=== PATIENT | female | born 1940 | race Caucasian/White ===

== ENCOUNTER → 2023-08-09 14:53 | Outpatient (REF) | payer OTHER, SELFPAY | LOC: RCS 14:53 | PROVIDERS: ATTENDING PHYSICIAN Family Medicine | DX: R06.02 Shortness of breath (principal) | CPT/HCPCS: 93306 ==

== ENCOUNTER 2024-03-29 22:48 | Inpatient (IN) | payer OTHER, SELFPAY ==
[2024-03-29] VITALS (7 sets, daily range): BP systolic 117–188; BP diastolic 52–84; BMI 29.3
[2024-03-29 17:54] LABS: Glucose - Point of Care 402 mg/dl (70-99)
[2024-03-29 18:30] LABS: Hematocrit 45.9 % (37.0-47.0); Hemoglobin 15.1 g/dL (12.0-16.0); Mean Corp Hgb Conc. 32.9 g/dL (33.0-37.0); Mean Corpuscular Hgb 29.3 pg (27.0-31.0); Mean Platelet Volume 10.8 fL (7.4-10.4); Platelet Count 238 10^3/uL (130-400); Red Blood Cell Count 5.16 10^6/uL (4.20-5.40); White Blood Cell Count 8.7 10^3/uL (4.8-10.8)
[2024-03-29 18:55] LABS: ALT (SGPT) 22 U/L (0-35); AST (SGOT) 29 U/L (14-36); Albumin 4.8 g/dl (3.5-5.0); Alkaline Phosphatase 73 U/L (38-126); Blood Urea Nitrogen 22 mg/dl (7-17); Calcium 9.7 mg/dl (8.4-10.2); Carbon Dioxide 27 mmol/L (22-30); Chloride 98 mmol/L (98-107); Estimated Creatinine Clearance 54 ml/min; Glucose 380 mg/dl (70-99); Potassium 4.7 mmol/L (3.5-5.1); Sodium 137 mmol/L (135-145); Total Bilirubin 0.7 mg/dl (0.2-1.3); Total Protein 7.7 g/dl (6.3-8.2); eGFR > 60.00
--- NOTE | 2024-03-29 19:00 | ED.GENMED ---
History of Present Illness
General
Chief Complaint: Dizziness
Source: patient
Exam Limitations: none
Time Seen by Provider: 03/29/24 18:36
History of Present Illness
History of Present Illness:
83-year-old female with history of hypertension, [id number] diabetes and hyperlipidemia presents with the onset of double vision out of the right eye starting around 1030. There were some unsteadiness when she walked as well. She notes
now the double vision has turned into a slightly of a blurry vision. She denies a headache. She states her vision out of her left eye is normal. It is her right eye that is affected. She is having trouble getting good reading of her blood sugar
at home as it was reading high. She denies any unilateral numbness or weakness. No chest pain or shortness of breath. No other complaints
Phy Exam
Physical Exam
Physical Exam:
General: Well-appearing female no acute respiratory distress
HEENT: Normocephalic atraumatic
Heart: Regular rate and rhythm no murmurs
Lungs: Clear no wheeze
Neurologic exam: Alert and oriented no facial asymmetry. Finger-nose [id number] intact no aphasia or dysarthria. When testing extraocular motions, the patient is unable to turn her right eye inward to the left. She is able to raise her eye
bilaterally. Her visual damian are intact.
Extremities: No cyanosis or edema
Skin: Warm no rash
Course
Orders/Labs/Results
Orders:
Orders
03/29/24 18:14
CMP [Comprehensive Metabolic Panel] Urgent
Complete Blood Count/No Diff Urgent
03/29/24 18:51
CT Head W/o Iv Contrast Urgent
Comment:
Reason For Exam: blurry vision
03/29/24 19:09
0.9% Sodium Chloride 1000 ml [Nss] 1,000 ml IV BOLUS
03/29/24 20:04
CT Head & Neck Angio W/wo IV Urgent
Reason For Exam: blurry vision
Abnormal Lab Results
03/29/24 03/29/24 03/29/24
17:53 18:14 21:25
MCHC 32.9 L g/dL
(33.0-37.0)
MPV 10.8 H fL
(7.4-10.4)
BUN 22 H mg/dl
(7-17)
Glucose 380 H mg/dl
(70-99)
POC Glucose 402 H mg/dl 273 H mg/dl
(70-99) (70-99)
03/29/24 18:14
03/29/24 18:14
Vital Signs
Initial and Last Documented VS:
Initial Vital Signs
Temp Pulse Resp BP Pulse Ox
97.6 F 77 18 179/84 97
03/29/24 17:52 03/29/24 17:52 03/29/24 17:52 03/29/24 17:52 03/29/24 17:52
Last Documented Vital Signs
Temp Pulse Resp BP Pulse Ox
97.6 F 60 12 157/64 96
03/29/24 17:52 03/29/24 20:30 03/29/24 20:30 03/29/24 20:00 03/29/24 19:45
MDM/Problems Addressed
Differential Diagnosis Includes:
Patient with dizziness and double vision. History of diabetes hypertension hyperlipidemia. No unilateral deficit of the arms or legs noted on exam however the patient does have difficulty turning her right eye towards the left hand direction.
Question possible cranial nerve palsy. She is hyperglycemic here at the level of 400. CT of the head pending.
*Critical Care Note
Total Time (30-74mins, 75-104mins- exclusive of procedures): Not Applicable
Update Note
Update Note:
CT head shows no acute finding. Discussed findings with neurology who recommended CTA of head and neck this was performed which showed no acute finding as well but neurology is recommending admitting to hospital for further workup and potential
further imaging with MRI. Differential could include CVA versus cranial nerve palsy. Fluids ordered for her hyperglycemia. Her scheduled dose of lisinopril.
ED Attending Note
-
Portions of this chart may have been created with voice recognition software.� Occasional wrong word or��sound alike� substitutions may have occurred due to the inherent limitations of voice recognition software.
Discharge Plan
Departure
Patient Disposition: Admit
Date of Disposition: 03/29/24
Time of Disposition: 21:39
Admit to: Telemetry
Presentation/result/management discussed w/ accepting MD/DO: Hospitalist
Discharge Problem:
Double vision
Referrals:
Karla Pringle MD [Family Provider] -
Interventions
Interventions:
*Risk Screen - Suicide Last Done: 03/29/24 18:18
*General Assessment Last Done: 03/29/24 18:18
*Neglect/Abuse Screening Last Done: 03/29/24 18:18
ED- Fall Risk Assessment Last Done: 03/29/24 18:23
*ED COVID-19 Vaccine History Last Done: 03/29/24 18:18
ED- Neurological Assessment Last Done: 03/29/24 18:19
ED- Cardiac Assessment Last Done: 03/29/24 18:23
Discharge Date and Time
Print Language: MAORI
[2024-03-29] MEDS: NSS 1000 IV (19:40)
[2024-03-29 21:28] LABS: Glucose - Point of Care 273 mg/dl (70-99)
--- NOTE | 2024-03-29 21:39 | HPS.HSE ---
Addendum entered and electronically signed by Yohan Vela DO 03/29/24 23:23:
Patient seen and examined independently. Agree with findings and plan as set forth by WINSOME Baca.
Patient is an 83y F with PMH significant for hypertension, DM-II and PVD who presents to ED complaining of double vision. Patient denies any blurry vision in either eye. She states that her symptoms started thi AM around 10:30. She has felt
dizzy / unsteady. She denies any falls. No numbness or tingling. No headache. No prior history of similar symptoms. Patient notes that seh was seen by Ophtho about 2 months ago and had a normal exam at that time.
Ass:
Double Vision
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
Benign Hypertension
DM-II
PVD
Plan:
Admit for further evaluation and treatment.
Neurology evaluation
MRI in AM.
Monitor for any new / worsening symptoms or neurologic changes.
Eye patch to R eye.
Continue usual home medications.
Original Note:
Family Physician
-
Family Physician: Karla Pringle
Chief Complaint
-
dizziness/double vision
History of Present Illness
Patient is a 83-year-old female with past medical history significant for hypertension, hyperlipidemia, type 2 diabetes mellitus and peripheral vacular disease who presented to [facility] for evaluation of acute onset double vision from right eye
associated with dizziness at approximately 1030 this morning. She notes she had unsteadiness on feet when walking and needed to utilize wall for balance. Patient states that she continues with intermittent double vision in right eye and vision
overall in right eye is blurry. Patient denies any fever, chills, cough, SOB, chest pain, nausea, vomiting, constipation, diarrhea or urinary symptoms. She noted recent stress of loosing a cat of 18 years and her passed a year ago.
Medical History
Past Medical History
Past Medical History: Reports Other
Additional Past Medical History:
hypertension
hyperlipidemia
type 2 diabetes mellitus
peripheral vacular disease
Hx endometrial cancer with hysterectomy
Past Surgical History: Reports Other
Additional Past Surgical History:
Hysterectomy (late )
Partial parathyroidectomy
ANDRAE/BSO
Social History
Tobacco: Non-smoker
Alcohol: None
Drug: None
Personal:
Living: Alone
Employment: Retired
Family History
Family History: Not pertinent
Allergies / Home Medications
Allergies reflects when Allergies were last updated in [facility].
Home Medications with original date entered in [employer]
Allergy/Medication List:
Allergies
Allergy/AdvReac Type Severity Reaction Status Date / Time
No Known Allergies Allergy Verified 03/29/24 18:17
Home Medications
lisinopril 2.5 mg tablet 2.5 mg PO DAILY 03/29/24
semaglutide 0.25 mg or 0.5 mg (2 mg/3 mL) subcutaneous pen injector (Ozempic) 0.25 mg SC WEEKLY 03/29/24
Review of Systems
-
History Source: Patient
Constitutional: Reports No Symptoms
EENT: Reports No Symptoms
Respiratory: Reports No Symptoms
Cardiac: Reports No Symptoms
Abdomen/GI: Reports No Symptoms
: Reports No Symptoms
Musculoskeletal: Reports No Symptoms
Skin: Reports No Symptoms
Neurological: Reports Dizzy and Other (right eye with blurry and double vision)
Endocrine: Reports No Symptoms
Hematologic/Lymphatic: Reports No Symptoms
Psych: Reports No Symptoms
Physical Exam
Vital Signs
Vital Signs
Temp Pulse Resp BP Pulse Ox
97.6 F 60 12 157/64 96
03/29/24 17:52 03/29/24 20:30 03/29/24 20:30 03/29/24 20:00 03/29/24 19:45
Physical Exam
General: Well Developed, Well Nourished, No Apparent Distress, Comfortable and Conversant
HEENT: NormoCephalic, Moist mucous membranes, Atraumatic, [place] Conjunctivae, Nose Appears Normal and Ears Appear Normal
Respiratory: Clear and Non Labored Respirations; No Wheezes, Rales, Rhonchi or Crackles
Cardiac: S1/S2 and Regular Rhythm; No Murmur, Rub or Gallop
Breast: Deferred by me
GI: Soft, Non Tender, Non Distended and Normal Bowel Sounds; No Organomegaly
Rectal: Deferred by Provider
Genito-urinary: Deferred by me
Musculoskeletal: No Clubbing, No Cyanosis and No Edema
Skin: Warm and IV/Catheter Site; No Rash
Neuro: Awake, Alert, AO x 3 and Nonfocal/grossly intact; No Cranial Nerves Intact (right eye does not track inward to left when testing extraocular movement, all visual damian and movement intact)
Hematologic/Lymphatic: No Lymphadenopathy
Psych: Calm and Intact Judgment/Insight
Laboratory Results
-
03/29/24 18:14
03/29/24 18:14
Laboratory Results
Total Bilirubin 0.7 mg/dl (0.2-1.3) 03/29/24 18:14
AST 29 U/L (14-36) 03/29/24 18:14
ALT 22 U/L (0-35) 03/29/24 18:14
Alkaline Phosphatase 73 U/L (38-126) 03/29/24 18:14
Data Reviewed
-
CT Scan: Report Reviewed by me (Head CT: No acute intracranial abnormalities. Findings compatible with diffuse cortical atrophy with nonspecific white matter changes as described above. Head CTA: No M1 nor M2 occlusion. No significant acute
findings.)
Lab Data: Labs Reviewed by me
Impression/Plan
-
IMPRESSION/PLAN:
#CVA/TIA vs. cranial nerve palsy
Acute onset right eye double vision, changing to blurry vision
Head CT: No acute intracranial abnormalities.
Findings compatible with diffuse cortical atrophy with nonspecific white matter changes as described above.
Head CTA: No M1 nor M2 occlusion. No significant acute findings.
- Admit to telemetry
- Consult Neurology
- Neurochecks
- NIH
- MRI
- daily Aspirin 81mg
#benign hypertension
- continue Lisinopril
- monitor VS
#type 2 diabetes mellitus
- continue semaglutide on Mondays
- Accuchecks AC & HS
- SSI
#hyperlipidemia
#peripheral vacular disease
#Hx endometrial cancer with hysterectomy in late 1980s
Code Status: Full code
DVT Prophylaxis: SCDs
[2024-03-30] VITALS (10 sets, daily range): BP systolic 153–194; BP diastolic 57–131; PULSE 66–67; O2SAT 98; BMI 28.5
--- NOTE | 2024-03-30 00:30 | PTCARENOTE ---
Upon admission to floor, pt able to ambulate w/assist of 1 from hallway to bed. Slightly unsteady on feet. Denies any dizziness. No longer w/double vision of Rt eye; Rt eye vision now blurry. Pt instructed on importance of not getting OOB w/o
assistance of staff; pt confirms understanding of same.
--- NOTE | 2024-03-30 08:39 | CON.NEURO4 ---
Addendum entered and electronically signed by Juan C Wright MD 03/30/24 15:06:
Studies reviewed.
I have personally examined the patient. I reviewed and agree with the PERFORMANCE ANALYST's Note.
My addenda:
Awake, alert, interactive. No acute distress.
Speech intact.
Follows 2-step requests w/o difficulty. No tremor.
Extra-ocular movements grossly intact.
Facial movements full and symmetric. Hearing intact to normal conversational volume.
Normal UE movements bilaterally.
Neck: full ROM.
Chest: no dyspnea
Heart: no JVD
Ext: (-) Clubbing, (-) Cyanosis, (-) Edema
IMPRESSIONS/RECOMMENDATIONS:
Abrupt onset of gait dysfunction and diplopia
Due to acute right pontine ischemic stroke as seen by MRI of brain; CTA head and neck was unrevealing
Patient was not a candidate for either tenecteplase or intra-arterial thrombectomy due to NIH stroke scale less than 6
Provide medical educational materials
Provide combination of aspirin and clopidogrel with permanent use of aspirin alone after 21 days
Add rosuvastatin 40 mg daily due to significantly elevated LDL
Rehabilitation evaluations
Goal of normoglycemia
Goal of normal blood pressure
D/W patient / family
All questions answered.
Will continue to follow as needed.
Original Note:
Consultation - Neurology 4
-
CONSULTING PHYSICIAN: Dr. Juan C Wright
REFERRING PHYSICIAN: WINSOME Baca
DICTATED BY: WINSOME Wilkes
DATE/TIME OF REQUEST: 03/29/2024
DATE/TIME OF CONSULTATION: 03/30/2024
Reason for Consultation: diplopia/trouble with gait
History of Present Illness:
This is a 83 year old female patient who has presented to the hospital with acute onset of diplopia and gait dysfunction starting after 1030 yesterday morning (03/29/2024). She noted trouble with gait and vision when she was walking to the the BR.
She reported diplopia was only noted in her right eye, not both. Diplopia has improved and is now intermittent. She did note diplopia again of just the right eye when watching TV this am. Otherwise is now just blurry. No visual issues with the
left eye. She did ambulate to the BR and gait is still a bit unsteady. She denies any upper extremity weakness. She does note mild right leg weakness. She also states that yesterday she had numbness of lips and part of her tongue. She has no
history of stroke. She does not take any antiplatelet. She denies any similar episodes in the past. She does live alone.
Past Medical History: DM, osteoporosis, PVD, HLD, HTN, Endometrial cancer
Surgical History: Hysterectomy
Family History: mother 'small strokes'
Social History: Patient lives alone. She does not smoke of drink ETOH.
Allergies: NKDA
Home Medications: See below
Review of Symptoms:
Patient denies any fever, headache, chest pain, shortness of breath, GI or symptoms.
Vital Signs:
see below
Physical Exam:
The patient is afebrile, heart sounds S1 and S2 are regular and chest is clear to auscultation bilaterally.
Neurologic Examination:
The patient is awake, alert and oriented x 3. She is able to follow commands and answer questions appropriately. There is no aphasia or dysarthria. On cranial nerve assessment, pupils are 3 mm bilateral, round and reactive to light and
accommodation. Visual damian are full. Extraocular eye movement of right eye with cranial nerve III palsy, otherwise intact. Facial sensations are intact and bilaterally symmetrical, there is no facial asymmetry. Hearing is intact bilaterally to
normal conversation volume. Tongue palate and uvula are midline. Sternocleidomastoid strengths are full bilaterally. Motor strengths are 5/5 bilateral upper and lower extremities on medical research [place] scale. There is no drift or involuntary
movement noted. Deep tendon reflexes are trace bilateral upper and lower extremities and Babinski is absent bilaterally. Sensations of light touch and temperature are intact and bilaterally symmetrical. There was no extinction noted on double
simultaneous stimulation. Coordination is intact by finger to nose bilaterally.
Lab Results:see below
Neuro Imaging:
CT head-No acute intracranial abnormalities.
Findings compatible with diffuse cortical atrophy with nonspecific white matter changes
CTA head/neck-No M1 nor M2 occlusion. No significant acute findings.
Impression:
PRESLEY RITTER is a 83 year old F who has presented to the hospital with diplopia of right eye as well as gait changes.
Differentials for the patient's presentation include CN III palsy caused uncontrolled DM vs acute stroke
Patient has the following risk factors for their symptoms: DM, age, HTN
IV Tenecteplase/IAT candidacy:non debilitating deficit
Recommendations:
-reviewed CT head and C TA head and neck with no acute cause
-obtain MRI brain-pending report
-continue ASA 81 mg will ad Plavix 75 mg daily for 21 days; then should continue ASA 81 mg indefinitely
-goal normoglycemia-outpatient HgbA1c 12.9 (Feb 2024) HgbA1c pending
-goal normotension
-LDL 199, gaol less than 70-per last PCP record was taking Rosuvastatin 20 mg, will order
-PT/OT and speech evaluations
-Neurochecks and NIHSS per unit guidelines
-DVT prophylaxis
-She does follow with Dr. Wilks as an outpatient and should continue to follow up with him
-provide stroke education
Discussed patient care with patient and neurologist, Dr. Wright.
Medication and Allergies
Home Medications
Home Medications
�Medication �Instructions �Recorded
lisinopril 2.5 mg tablet 2.5 mg PO DAILY 03/29/24
semaglutide 0.25 mg or 0.5 mg (2 0.25 mg SC WEEKLY 03/29/24
mg/3 mL) subcutaneous pen injector
(Ozempic)
Allergies
Allergies
Allergy/AdvReac Type Severity Reaction Status Date / Time
No Known Allergies Allergy Verified 03/29/24 18:17
Vital Signs / Labs
-
Vital Signs and Labs:
Temp Pulse Resp BP Pulse Ox
97.7 F 68 18 178/68 97
03/30/24 08:07 03/30/24 09:10 03/30/24 08:07 03/30/24 09:10 03/30/24 08:07
03/29/24 18:14
03/29/24 18:14
03/29/24 03/29/24 03/29/24
17:53 18:14 21:25
MCHC 32.9 L
MPV 10.8 H
BUN 22 H
Glucose 380 H
POC Glucose 402 H 273 H
03/30/24
08:48
MCHC
MPV
BUN
Glucose
POC Glucose 174 H
[2024-03-30 08:50] LABS: Glucose - Point of Care 174 mg/dl (70-99)
[2024-03-30] MEDS: ZESTRIL 2.5 MG PO (09:10)
[2024-03-30] MEDS: VITAMIN B1 100 MG PO (09:11)
[2024-03-30] MEDS: LOW STRENGTH ASPIRIN 81 MG PO (09:11)
[2024-03-30 09:40] LABS: HDL Cholesterol 50 mg/dl; LDL Cholesterol, Calculated 199 mg/dl; Total Cholesterol 284 mg/dl (50-199); Triglyceride 179 mg/dl (10-149); Very Low Density Lipoprotein 35 mg/dl (0-30)
--- NOTE | 2024-03-30 10:05 | PTOTSP ---
Speech Therapy Evaluation:
Pt seen for bedside swallow evaluation. Oropharyngeal swallow appears grossly WFL with no overt s/sx of aspiration throughout breakfast. Pt appears to be at a low risk of aspiration and related complications given CNE that was within functional
limits and PMH with no significant risk factors, however will follow pending results of MRI.
Recommend:
1. Continue IDDSI Level 7 (regular) solids and thin liquids
2. Medications as tolerated
3. Partial assistance with tray setup given double vision
4. General aspiration precautions
5. FINAL APPLICATION REVIEWER to follow - likely brief
[2024-03-30 11:58] LABS: Glucose - Point of Care 197 mg/dl (70-99)
[2024-03-30] MEDS: PLAVIX 75 MG PO (12:22)
--- NOTE | 2024-03-30 13:19 | W.PN.HOSP.TC ---
Today's Communication/Plan
-
check ECHO
cont asa/plavix/statin
Assessment / Plan
Assessment / Plan
pt is an 83 year old female
acute stroke--presenting likely as double vision--MRI positive for Nonhemorrhagic acute/subacute right pontine infarct--head CT and head/neck CTA without significant findings--cont asa/plavix x 21 days--PT/OT--check ECHO--tchol 284, trug 179, LDL
199, HDL 50--need better control--start statin
essential HTN--cont lisinopril
type 2 DM--on ozempic only--BS high--consult community health educator--add SSI
PVD--noted
DVT proph
code status -- full code
Anticipated Discharge: 24 - 48 hours
Subjective/Interval History
-
Date of Service: March 30, 2024
pt still with blurry vision and double vision in right eye
Objective Data
-
Vital Signs:
max temp for 24 hours
03/30/24
11:51
Temp 98 F
Vital Signs
Temp Pulse Resp BP Pulse Ox
98 F 62 18 164/62 98
03/30/24 11:51 03/30/24 11:51 03/30/24 11:51 03/30/24 11:51 03/30/24 11:51
I&O
03/29/24 03/30/24 03/31/24
06:59 06:59 06:59
Intake Total 240 / 240
Balance 240 / 240
Review of Systems
-
All other systems: Reviewed and negative
EENT: Reports Decreased Vision (right eye)
Physical Exam
-
General: Well Developed, Well Nourished and No Apparent Distress
HEENT: Normocephalic and Atraumatic
Respiratory: Clear to Auscultation; Negative Wheezes or Rhonchi
Cardiac: Regular Rhythm and S1/S2; Negative Murmur
GI: Soft, Nontender, Nondistended and Normal Bowel Sounds
Musculoskeletal: No Clubbing, No Cyanosis and No Edema
Neuro: Awake and Alert
Psych: Calm
--- NOTE | 2024-03-30 13:35 | CM ---
Patient seen at bedside with physician. Patient states she lives alone since of her in the last year. Patient sister present at bedside. Patient PCP is Dr. Tran and she uses the [facility] in [place]. Patient stated that she has been
independent of ADL's and IADL's. Patient was driving prior to admission. Patient pending therapy assessment. CM will continue to follow for discharge planning needs.
Plan; home with [facility] vs SNF
[2024-03-30] MEDS: CRESTOR 20 MG PO (17:43)
[2024-03-30 17:46] LABS: Glucose - Point of Care 205 mg/dl (70-99)
[2024-03-30] MEDS: NOVOLOG FLEXPEN-LOW RESISTANCE 2 UNITS SC (17:50)
[2024-03-30 18:09] LABS: Ferritin 41.8 ng/ml (11.1-264.0)
--- NOTE | 2024-03-30 18:11 | PTCARENOTE ---
Received patient this a AAOx3. Pt NIH-2. Pt OOB to chair an tolerated well. Tolerated diet well. Py off unit for MRI and Echo today. Offered no complaints. Made patient comfortable. Cont to assess patient status.
[2024-03-30 18:24] LABS: Vitamin B12 573 pg/ml (239-931)
[2024-03-30 21:29] LABS: Glucose - Point of Care 226 mg/dl (70-99)
[2024-03-31] VITALS (8 sets, daily range): BP systolic 115–194; BP diastolic 47–78; PULSE 65; O2SAT 98
[2024-03-31 07:58] LABS: Hematocrit 39.5 % (37.0-47.0); Hemoglobin 13.3 g/dL (12.0-16.0); Mean Corp Hgb Conc. 33.7 g/dL (33.0-37.0); Mean Corpuscular Hgb 29.6 pg (27.0-31.0); Mean Corpuscular Volume 87.8 fL (81.0-99.0); Mean Platelet Volume 10.9 fL (7.4-10.4); Platelet Count 189 10^3/uL (130-400); Red Cell Dist. Width 12.3 % (11.5-14.5); White Blood Cell Count 5.1 10^3/uL (4.8-10.8)
[2024-03-31 08:15] LABS: Glucose - Point of Care 222 mg/dl (70-99)
[2024-03-31 08:21] LABS: ALT (SGPT) 16 U/L (0-35); AST (SGOT) 16 U/L (14-36); Albumin 3.4 g/dl (3.5-5.0); Alkaline Phosphatase 59 U/L (38-126); Blood Urea Nitrogen 19 mg/dl (7-17); Calcium 8.9 mg/dl (8.4-10.2); Carbon Dioxide 27 mmol/L (22-30); Chloride 105 mmol/L (98-107); Estimated Creatinine Clearance 62 ml/min; Glucose 183 mg/dl (70-99); Magnesium 1.8 mg/dl (1.6-2.3); Potassium 4.2 mmol/L (3.5-5.1); Sodium 138 mmol/L (135-145); Total Bilirubin 0.5 mg/dl (0.2-1.3); Total Protein 5.8 g/dl (6.3-8.2); eGFR > 60.00
[2024-03-31] MEDS: VITAMIN B1 100 MG PO (08:24)
[2024-03-31] MEDS: ZESTRIL 2.5 MG PO (08:24)
[2024-03-31] MEDS: PLAVIX 75 MG PO (08:25)
[2024-03-31] MEDS: LOW STRENGTH ASPIRIN 81 MG PO (08:25)
[2024-03-31] MEDS: NOVOLOG FLEXPEN-LOW RESISTANCE 2 UNITS SC ×2 (08:26→17:03)
[2024-03-31 08:58] LABS: Glycohemoglobin (HgbA1c) 12.4 % (4.0-5.6)
--- NOTE | 2024-03-31 09:20 | CM ---
Addendum entered by Marilia Woo 03/31/24 09:29:
Per physician patient for DM educator visit. CM will continue to follow for discharge planning needs, awaiting response from [facility] to confirm.
Original Note:
Patient seen at bedside with physician. Patient for discharge home today with referral requested to [facility]. CM will update the liaison and IMM completed. CM will continue to follow for discharge planning needs.
--- NOTE | 2024-03-31 09:49 | W.PN.HOSP.TC ---
Today's Communication/Plan
-
await extension educator
likely d/c today
Assessment / Plan
Assessment / Plan
pt is an 83 year old female
acute stroke--presenting likely as double vision--MRI positive for Nonhemorrhagic acute/subacute right pontine infarct--head CT and head/neck CTA without significant findings--cont asa/plavix x 21 days, followed by asa alone--PT/OT-- ECHO without
much change--tchol 284, trug 179, LDL 199, HDL 50--need better control--started statin
essential HTN--cont lisinopril
type 2 DM--on ozempic only--BS high--await extension educator--add SSI--may need to add oral med--HGB A1C 12.4
PVD--noted
DVT proph
code status -- full code
Anticipated Discharge: Today
Subjective/Interval History
-
Date of Service: March 31, 2024
pt now has eye patch
Objective Data
-
Labs:
Laboratory Results
03/31/24
06:43
WBC 5.1
Hgb 13.3
Hct 39.5
Plt Count 189 D
Sodium 138
Potassium 4.2
Chloride 105
Carbon Dioxide 27
BUN 19 H
Creatinine 0.6
Glucose 183 H
Calcium 8.9
Total Bilirubin 0.5
AST 16
ALT 16
Alkaline Phosphatase 59
Vital Signs:
max temp for 24 hours
03/30/24
16:03
Temp 98.7 F
Vital Signs
Temp Pulse Resp BP Pulse Ox
97.7 F 62 20 165/74 97
03/31/24 06:53 03/31/24 08:24 03/31/24 06:53 03/31/24 08:24 03/31/24 08:31
I&O
03/30/24 03/31/24 04/01/24
06:59 06:59 06:59
Intake Total 240 / 240 240 / 240
Balance 240 / 240 240 / 240
Review of Systems
-
All other systems: Reviewed and negative
Physical Exam
-
General: Well Developed, Well Nourished and No Apparent Distress
HEENT: Normocephalic, Atraumatic and Other (eye patch over right eye)
Respiratory: Clear to Auscultation; Negative Wheezes or Rhonchi
Cardiac: Regular Rhythm and S1/S2; Negative Murmur
GI: Soft, Nontender, Nondistended and Normal Bowel Sounds
Musculoskeletal: No Clubbing, No Cyanosis and No Edema
Neuro: Awake and Alert
Psych: Calm
--- NOTE | 2024-03-31 10:07 | VNURNOTE ---
Home Health Liaison met with patient at bedside to discuss [facility] nurse/therapy, visits, schedule and homebound status. Patient is agreeable and understands that visits at home will be 2-3 x per week to assess and teach medical management. [facility]
brochure provided with contact information. Patient is aware that [facility] will contact them for start of care in 1-2 days after discharge from .
[facility] referral completed in [facility].
[2024-03-31 11:59] LABS: Glucose - Point of Care 319 mg/dl (70-99)
[2024-03-31] MEDS: NOVOLOG FLEXPEN-LOW RESISTANCE 4 UNITS SC (12:08)
[2024-03-31] MEDS: LANTUS 0.15 UNITS SC (14:48)
--- NOTE | 2024-03-31 15:06 | PN.DE.MGMTRT ---
Insulin Management
- -
03/31/2024: Diabetes Management Consult
83 year old female admitted with Right eye vision changes MRI positive for Nonhemorrhagic acute/subacute right pontine infarct.
PMH: HTN, HLD, PVD and T2DM. Glucose on admission was 407, A1C 12.4% Cr 0.6, eGFR >60. Was taking Ozempic Q Mondays and Metformin 1000mg BID but according to her sisters at bedside, pt was confusing her medication and not taking them consistently.
She once had a glucose monitor but they don't know where it is and she dose not monitor her blood sugars.
Her glucose has been elevated since admission. FBG 183 (V), 222 POC this AM, pre-lunch 319
Discussed plan of management at length with pt and her sisters at bedside. One sister states that will not take insulin and i should not bither ordeing it.
in further discussion, the older sister stated that she will be able to go to pt's house once a day administer 1 shot a day at noon.
Will start Lantus 15 units now and daily at noon. Start Glipizide 2.5mg BID and resume metformin 1000 mg BID.
Provided monitor and insulin instructions to both pt and her 2 sisters at bedside.
Encouraged the older sister to record the education session for reference when they get home.
Pt had difficulties following step by step instructions on monitor use and insulin pen use.
Pt required a lot of verbal cues. The instructions were provided twice and pt struggled both times wit poor return demonstration. Her blood sugar was 200 prior to lunch on the take home meter. Pt and family asking about script for CGM, they were
encouraged to contact pt's PCP for script and to call office to assist with insertion when they pick it up from the pharmacy.
She will require followup tomorrow to reinforce the education and instructions.
Reviewed all instructions and medications with pt's sisters and marked all necessary information in the diabetes take home booklet.
Will follow up tomorrow. Updates given to Dr. Hermosillo and pt's Nurse
Diabetes History
- -
Type of Diabetes: 2 requiring insulin
Pre-Admission Diabetes Regimen
03/31/24
06:43
Creatinine 0.6
Lab Results
Hemoglobin A1c Cancelled 03/30/24 08:54
Insulin Pump Settings
IP Diabetes Regimen
03/30/24 03/30/24 03/31/24
17:45 21:27 06:43
Glucose 183 H
POC Glucose 205 H 226 H
03/31/24 03/31/24
08:14 11:58
Glucose
POC Glucose 222 H 319 H
Meal type: Breakfast
Amount consumed: 100%
Patient Education
[2024-03-31 16:55] LABS: Glucose - Point of Care 213 mg/dl (70-99)
[2024-03-31] MEDS: CRESTOR 20 MG PO (17:02)
[2024-03-31] MEDS: GLUCOTROL 2.5 MG PO (17:02)
[2024-03-31] MEDS: GLUCOPHAGE 1000 MG PO (17:03)
[2024-03-31 21:15] LABS: Glucose - Point of Care 134 mg/dl (70-99)
[2024-04-01 03:43] VITALS: BP 153/59
[2024-04-01 07:34] LABS: Glucose - Point of Care 111 mg/dl (70-99)
[2024-04-01 07:46] VITALS: BP 150/62
--- NOTE | 2024-04-01 07:55 | PN.DE.MGMTRT ---
Insulin Management
- -
04/01/2024: Diabetes Management F/U:
83 year old female admitted with Right eye vision changes MRI positive for Nonhemorrhagic acute/subacute right pontine infarct.
PMH: HTN, HLD, PVD and T2DM. Glucose on admission was 407, A1C 12.4% Cr 0.6, eGFR >60. Was taking Ozempic Q Mondays and Metformin 1000mg BID but according to her sisters at bedside, pt was confusing her medication and not taking them consistently.
She once had a glucose monitor but they don't know where it is and she dose not monitor her blood sugars. Her glucose has been elevated since admission. FBG 183 (V), 222 POC this AM, pre-lunch 319
03/31 started Lantus 15 units daily at noon, Glipizide 2.5mg BID and resumed metformin 1000 mg BID.
Pt awake, alert, sitting up in chair, offers no complaints, able to discuss diabetes mgt. Both sisters- Terri High and Lissa at bedside.
Glucose has dramatically improved with initiation of basal insulin and glipizide and resuming Metformin.
HS glucose was 134 and FBG 111 POC this AM.
Will make no changes to current regimen: Lantus 15 units daily at noon, Glipizide 2.5mg BID and metformin 1000 mg BID.
Provided follow up monitor and insulin instructions to both pt and her 2 sisters at bedside.
Pt did much better today, was able to perform proper technique using the meter and insulin pen, with good return demonstration. Her glucose was 175 using her take home meter. Pt and sisters feel confident that they will be able tpo manage insulin
administration once a day and Glucose monitoring 2 times a day.
Reviewed all instructions and medications with pt's sisters and marked all necessary information in the diabetes take home booklet.
Encouraged pt and her sisters to contact pt's PCP to obtain script for CGM.
Updates given to Dr. Hermosillo and pt's Nurse. Will add Rx to ambulatory orders.
Diabetes History
- -
Type of Diabetes: 2 requiring insulin
Pre-Admission Diabetes Regimen
03/31/24
06:43
Creatinine 0.6
Lab Results
Hemoglobin A1c Cancelled 03/30/24 08:54
Insulin Pump Settings
IP Diabetes Regimen
03/31/24 03/31/24 03/31/24
06:43 08:14 11:58
Glucose 183 H
POC Glucose 222 H 319 H
03/31/24 03/31/24 04/01/24
16:54 21:13 07:33
Glucose
POC Glucose 213 H 134 H 111 H
Meal type: Breakfast
Amount consumed: 100%
Patient Education
[2024-04-01] MEDS: GLUCOTROL 2.5 MG PO ×2 (08:45→17:34)
[2024-04-01] MEDS: GLUCOPHAGE 1000 MG PO ×2 (08:45→17:35)
[2024-04-01] MEDS: ZESTRIL 2.5 MG PO (08:45)
[2024-04-01] MEDS: NOVOLOG FLEXPEN-LOW RESISTANCE SC ×3 (08:45→18:01)
[2024-04-01] MEDS: LOW STRENGTH ASPIRIN 81 MG PO (08:45)
[2024-04-01] MEDS: VITAMIN B1 100 MG PO (08:46)
[2024-04-01] MEDS: PLAVIX 75 MG PO (08:46)
[2024-04-01 11:16] VITALS: BP 158/69
[2024-04-01] MEDS: LANTUS 0.15 UNITS SC (13:56)
[2024-04-01 14:01] LABS: Glucose - Point of Care 139 mg/dl (70-99)
--- NOTE | 2024-04-01 14:14 | CM ---
Patient spoke with physician and sisters as well as CM. Patient for discharge home with [facility] and patient family completed IMM form placed on chart. CM will continue to follow for discharge planning needs.
Plan; home with [facility] and DM educator supports.
[2024-04-01 15:08] VITALS: BP 154/74
--- NOTE | 2024-04-01 15:16 | W.PN.HOSP.TC ---
Today's Communication/Plan
-
d/c
Assessment / Plan
Assessment / Plan
pt is an 83 year old female
acute stroke--presenting likely as double vision--MRI positive for Nonhemorrhagic acute/subacute right pontine infarct--head CT and head/neck CTA without significant findings--cont asa/plavix x 21 days, followed by asa alone--PT/OT-- ECHO without
much change--tchol 284, trug 179, LDL 199, HDL 50--need better control--started statin
essential HTN--cont lisinopril
type 2 DM--on ozempic only--BS high--apprec coordinator of placement-- oral meds and lantus added--HGB A1C 12.4--family wants f/u with endocrine
PVD--noted
DVT proph
code status -- full code
Anticipated Discharge: Today
Subjective/Interval History
-
Date of Service: April 01, 2024
pt ready for d/c
Objective Data
-
Vital Signs:
max temp for 24 hours
03/31/24
15:54
Temp 98.2 F
Vital Signs
Temp Pulse Resp BP Pulse Ox
98.1 F 75 18 158/69 97
04/01/24 11:16 04/01/24 11:16 04/01/24 11:16 04/01/24 11:16 04/01/24 14:48
I&O
03/31/24 04/01/24 04/02/24
06:59 06:59 06:59
Intake Total 240 / 240 600 / 600
Balance 240 / 240 600 / 600
Review of Systems
-
All other systems: Reviewed and negative
Physical Exam
-
General: Well Developed, Well Nourished and No Apparent Distress
HEENT: Normocephalic and Atraumatic
Respiratory: Clear to Auscultation; Negative Wheezes or Rhonchi
Cardiac: Regular Rhythm and S1/S2; Negative Murmur
GI: Soft, Nontender, Nondistended and Normal Bowel Sounds
Musculoskeletal: No Clubbing, No Cyanosis and No Edema
Neuro: Awake and Alert
Psych: Calm
[2024-04-01] MEDS: CRESTOR 20 MG PO (17:34)
[2024-04-01 17:38] LABS: Glucose - Point of Care 194 mg/dl (70-99)
--- NOTE | 2024-04-01 18:05 | PTCARENOTE ---
Discharge instructions reviewed with patient and sister. Copies provided to both patient and sister. Answered all questions. IV and tele removed. Patient left via wheelchair with staff escort. Sister is at bedside to transport patient home.
--- NOTE | 2024-04-02 15:34 | W.DCSUMMARY ---
Discharge Summary
Discharge Data
Date of Admission: 03/29/24
Date of Discharge: 04/01/24
Total time spent discharging patient (in min): 32
-
Pending Results: No
Hospital Course
Primary care physician : Karla Pringle
Principal Discharge diagnosis : Acute stroke, uncontrolled type 2 diabetes mellitus
Chronic Discharge diagnosis : Essential hypertension, peripheral vascular disease
Hospital Course : Patient was an 83-year-old female with a history of essential hypertension, type 2 diabetes mellitus who presented with acute onset of double vision from the right eye. This was associated with dizziness and started at
approximately 10:30 on the morning of admission. She states she had unsteadiness with walking and needed to utilize the wall for balance. She continued to have intermittent double vision in the right eye and the overall vision in the right eye is
blurry. Patient was admitted.
Problem #1: Acute stroke. Patient was admitted and seen in consultation by neurology. CAT scan of the head and CTA of the head and neck all were negative. MRI of the brain however showed a nonhemorrhagic acute to subacute right pontine infarct.
Patient was placed on aspirin and Plavix which she should take for 21 days followed by aspirin alone. Echocardiogram was done which did not show much change from previous echocardiogram. Lipid panel was checked which showed a total cholesterol
284, triglycerides of 179, LDL of 199 and an HDL of 50. She was started on a high intensity statin medication at this time. Physical therapy and Occupational Therapy were consulted and the patient does not have any skilled needs from that
standpoint. Speech did see the patient and she was noted to have cognitive deficits scoring a 20 out of 30 on the cognitive exam. Eyepatch was given to the patient and she should follow-up with ophthalmology as an outpatient.
Problem #2: Uncontrolled type 2 diabetes mellitus. Patient was on Ozempic only and sister was asking about a continuous glucose monitor. Blood sugars were running high here and hemoglobin A1c was checked and was found to be 12. Diabetic nurse
practitioner was consulted for assistance and patient was taken off Ozempic. She was started on Lantus, glipizide, metformin. Sister was asking about follow-up with endocrine. Names were provided for the patient. Sister supposed to be coming
over daily to give the patient her Lantus. With her cognitive issues I believe this is the prudent thing to do.
Problem #3: All other medical issues. These include Essential hypertension, peripheral vascular disease. These medical issues were stable during her hospitalization. Medications were continued as able.
Patient is stable for discharge home at this time. If there are any questions regarding this dictation or her hospital stay, please not hesitate to call. Our office number is [phone].
Time for discharge 32 minutes.
Important imaging findings :
BRAIN MRI IMPRESSION:
Nonhemorrhagic acute/subacute right pontine infarct.
HEAD AND NECK CTA IMPRESSION: No M1 nor M2 occlusion. No significant acute findings.
HEAD CT IMPRESSION:
No acute intracranial abnormalities.
Findings compatible with diffuse cortical atrophy with nonspecific white matter changes as described above.
ECHO CONCLUSIONS:
Normal left ventricular size and systolic function. Mild concentric left
ventricular hypertrophy. No regional wall motion abnormalities are seen. LV
ejection fraction is 55% by visual assessment.
Aortic sclerosis without stenosis.
Mild to moderate mitral regurgitation.
The IVC is of normal size and demonstrates normal respiratory variation.
Interatrial septum is intact with no evidence of shunting by color flow
Doppler.
Compared to prior echocardiogram from August 09, 2023 LVEF is similar, degree of
mitral regurgitation is similar mild to moderate. Previously there was felt to
be mild aortic stenosis with mean gradient of 11 mmHg.
Discharge Plan
-
Patient Disposition: Home with Home Care
Discharge Diagnosis/Procedures: Acute stroke presenting as double vision, essential hypertension, type 2 diabetes mellitus, peripheral vascular disease
Condition: Good
Diet: Low Fat and Diabetic, Carb Controlled
Activity: As tolerated
Driving Restrictions: Not until seen by your Dr
Bathing Restrictions: None
Other Services: VN, PT, OT and ST
Referrals:
Desirae Henriquez MD [Consulting Staff] - As needed (or anyone in the group)
Santiago Wilks MD [Active] - in one week
Karla Pringle MD [Family Provider] - in less than 1 week
Additional Discharge Medication Instructions: take aspirin and clopidogrel both for 21 days then continue on aspirin alone
Prescriptions:
New
glipizide 5 mg Tablet
2.5 mg PO BID@0800,1700 Qty: 60 0RF
insulin glargine [Lantus Solostar U-100 Insulin] 100 unit/mL (3 mL) Insulin Pen
15 unit SC NOON Qty: 5 0RF
Rx Instructions:
TAKE 15 UNITS DAILY AT NOON
(DME) pen needle, diabetic [BD Ultra-Fine Sofya Pen Needle] 32 gauge x 5/32' Needle
Qty: 60 0RF
Rx Instructions:
As Directed
(DME) Contour Next Test Strips Strip
Qty: 60 0RF
Rx Instructions:
Pt Testing 2 times a day
(DME) lancets [Microlet Lancet] Misc
Qty: 60 0RF
Rx Instructions:
TEST BLOOD SUGAR TWICE A DAY
clopidogrel 75 mg Tablet
75 mg PO DAILY 21 Days Qty: 21 0RF
Rx Instructions:
then continue aspirin only
rosuvastatin 20 mg Tablet
20 mg PO QPM Qty: 30 0RF
metformin 1,000 mg Tablet
1,000 mg PO BID@0800,1700 Qty: 60 0RF
aspirin 81 mg Tablet,Chewable
81 mg PO DAILY Qty: 0 0RF
lisinopril 2.5 mg tablet
2.5 mg PO DAILY Qty: 30 0RF
Continued
lisinopril 2.5 mg Tablet
2.5 mg PO DAILY
Discontinued
Ozempic 0.25 mg or 0.5 mg (2 mg/3 mL) Pen Injector
0.25 mg SC WEEKLY
metformin 1,000 mg Tablet
1,000 mg PO BID
Discharge Orders:
Discharge Patient (As Directed); Ordered 04/01/24
Ordered By: Johana Hermosillo
Discharge Date and Time
Discharge Date/Time: 04/01/24 18:02
Print Language: [facility] [place]
== END 2024-04-01 18:02 | disposition home health service (06) | DRG 66 ==
LOC: 4 EAST ACU 22:48
PROVIDERS: Nurse Practitioner Family; ADMITTING PHYSICIAN Hospitalist; ATTENDING PHYSICIAN Internal Medicine; CONSULT PHYSICIAN Psychiatry & Neurology Neurology; EMERGENCY PHYSICIAN Student in an Organized Health Care Education/Training Program; FAMILY PHYSICIAN Family Medicine
DX: I63.29 Cerebral infarction due to unspecified occlusion or stenosis of other precerebral arteries (principal); H53.2 Diplopia; E11.51 Type 2 diabetes mellitus with diabetic peripheral angiopathy without gangrene; I10 Essential (primary) hypertension; E78.5 Hyperlipidemia, unspecified; R26.81 Unsteadiness on feet; Z90.710 Acquired absence of both cervix and uterus; Z85.42 Personal history of malignant neoplasm of other parts of uterus; M81.0 Age-related osteoporosis without current pathological fracture; Z79.85 Long-term (current) use of injectable non-insulin antidiabetic drugs
CPT/HCPCS: 70450; 70496; 70498; 70551; 80053; 80061; 82607; 82728; 82962; 83036; 83735; 85027; 92523; 92526; 92610; 93306; 96360; 97116; 97129; 97163; 97166; 97530; 99285; Q9967

== ENCOUNTER 2024-09-16 15:16 | Outpatient (RCR) | payer OTHER, SELFPAY | END 2024-09-16 23:59 | disposition home or self-care (01) | LOC: RST 15:16 | PROVIDERS: ATTENDING PHYSICIAN Psychiatry & Neurology Neurology; PRIMARYCARE PHYSICIAN Family Medicine | DX: I69.311 Memory deficit following cerebral infarction (principal); I69.318 Other symptoms and signs involving cognitive functions following cerebral infarction; I69.328 Other speech and language deficits following cerebral infarction; Z73.6 Limitation of activities due to disability | CPT/HCPCS: 96125; 97129; 97130 ==

== ENCOUNTER → 2025-03-05 09:07 | Outpatient (REF) | payer OTHER, SELFPAY | LOC: HWRCS 09:07 | PROVIDERS: ATTENDING PHYSICIAN Family Medicine | DX: I10 Essential (primary) hypertension (principal); I34.0 Nonrheumatic mitral (valve) insufficiency | CPT/HCPCS: 93306 ==

== ENCOUNTER 2025-03-30 16:34 | Inpatient (IN) | payer OTHER, SELFPAY ==
[2025-03-30] VITALS (22 sets, daily range): BP systolic 108–144; BP diastolic 63–97; BMI 31.0
[2025-03-30] MEDS: CARDIZEM 10 MG IV (13:48)
[2025-03-30 14:08] LABS: Hematocrit 36.8 % (37.0-47.0); Hemoglobin 12.0 g/dL (12.0-16.0); Mean Corp Hgb Conc. 32.6 g/dL (33.0-37.0); Mean Corpuscular Volume 88.5 fL (81.0-99.0); Nucleated Red Blood Cells % 0 %; Platelet Count 230 10^3/uL (130-400); Red Cell Dist. Width 13.5 % (11.5-14.5)
[2025-03-30 14:15] LABS: INR 1.26; PT 16.0 Sec (11.4-14.6)
[2025-03-30 14:17] LABS: APTT 33.0 Sec (23.4-35.0)
--- NOTE | 2025-03-30 14:19 | ED.GENMED ---
History of Present Illness
General
Chief Complaint: Heart Rate Problem
Time Seen by Provider: 03/30/25 13:34
Nursing documentation reviewed up to this point in time: agreed with
History of Present Illness
History of Present Illness:
84-year-old female referred to the ER from cardiology office for further evaluation of tachycardia along with dyspnea on exertion and concern for decompensated heart failure. Patient also has a significant prior history of diabetes, hypertension,,
high cholesterol. She denies orthopnea or paroxysmal nocturnal dyspnea. She states that she has had a limited capacity for exercise recently, in particular over the past 2 to 3 days. Multiple family embers are present at bedside and actually
reports that it has been going on for the past several weeks. Patient denies chest pain. She denies peripheral edema. She denies any change in urine output
Review of Systems
Review of Systems
Allergies reviewed?: Yes
Phy Exam
Physical Exam
Physical Exam:
Patient is awake, alert, appears in no acute distress, head is NCAT, PERRL, EOMI mucous membranes moist, conjunctiva pink, heart regular tachycardic rate and rhythm without murmurs or ectopy, lungs are clear to auscultation without wheezes rales or
rhonchi,, diminished air movement bilateral bases no JVD, abdomen is soft and nontender on palpation, extremities without edema, GCS is 15
Course
Orders/Labs/Results
Orders:
Orders
03/30/25 Lunch
Cholesterol Lowering
Cholesterol Lowering: Sodium, 2 Gram
03/30/25 13:29
Electrocardiogram (*1) Urgent
Reason for Study: Chest Pain
EKG- Treatment ONCE
03/30/25 13:35
Cardiac Monitoring- Treatment ONCE
03/30/25 13:36
CR Chest Portable - 1 View Urgent
Comment:
Reason For Exam: dyspnea
Reason Study Needs to be Portable: Unable to Transport
03/30/25 13:43
Electrocardiogram (*1) Urgent
Reason for Study: Palpitations
Comment: after cardizem push
EKG- Treatment ONCE
Diltiazem HCl [Cardizem] 10 mg IV NOW STA
03/30/25 13:46
Complete Blood Count/With Diff Urgent
Comprehensive Metabolic Panel Urgent
Magnesium Urgent
NT-proBNP Urgent
PTT Urgent
Prothrombin Time Urgent
Troponin I Urgent
03/30/25 15:00
Furosemide [Lasix] 40 mg IV NOW STA
03/30/25 15:39
Admit/Transfer Patient As Directed
Co-Sign Provider:
Level of Care: Inpatient admission
Assign to:: IVU
Physician / Group: Hospitalist
Diagnosis: Heart failure
Reason for Hospitalization: Heart failure
Expected length of stay greater than two midnights?: Yes
ELOS- Estimated Length of Stay in days: 3
I certify the patient meets the requirements for IP care: Yes
PRN Pain Medication Management As Directed
May give lesser potent ordered pain med per pt: Yes
preference::
Protocol:: Medication orders for pain may be administered in a
manner that supports deferring to patient preference
when the pt is:
- Requesting an ordered lesser potent pain medication.
Least to most potent pain medications are defined
as: acetaminophen < NSAID < tramadol < opioids
(morphine, oxycodone, hydromorphone).
- Requesting a lesser dose of the same medication IF
ORDERED.
- Requesting a less intrusive route of administration
if both routes are prescribed by the provider (PO <
IV).
03/30/25 15:42
Code Status As Directed
Resuscitation Status: Full Code
Abnormal Lab Results
03/30/25
13:46
WBC 11.5 H 10^3/uL
(4.8-10.8)
RBC 4.16 L 10^6/uL
(4.20-5.40)
Hct 36.8 L %
(37.0-47.0)
MCHC 32.6 L g/dL
(33.0-37.0)
MPV 11.1 H fL
(7.4-10.4)
Absolute Neuts (auto) 9.6 H 10^3/uL
(1.4-6.5)
Absolute Lymphs (auto) 0.7 L 10^3/uL
(1.2-3.4)
Absolute Monos (auto) 1.2 H 10^3/uL
(0.1-0.6)
Neutrophils % 83.1 H %
(42.2-75.2)
Lymphocytes % 6.4 L %
(20.5-51.1)
Monocytes % 10.1 H %
(1.7-9.3)
PT 16.0 H Sec
(11.4-14.6)
BUN 26 H mg/dl
(7-17)
Glucose 205 H mg/dl
(70-99)
Troponin I 0.462 H* ng/ml
03/30/25 13:46
03/30/25 13:46
Moderate elevation in troponin, kidney function preserved. Electrolytes otherwise normal
Vital Signs
Initial and Last Documented VS:
Initial Vital Signs
Temp Pulse Resp BP Pulse Ox
98.2 F 122 20 122/79 97
03/30/25 13:25 03/30/25 13:25 03/30/25 13:25 03/30/25 13:25 03/30/25 13:25
Last Documented Vital Signs
Temp Pulse Resp BP Pulse Ox
98.2 F 118 33 133/78 98
03/30/25 13:25 03/30/25 15:57 03/30/25 15:00 03/30/25 15:57 03/30/25 14:50
MDM/Problems Addressed
Differential Diagnosis Includes:
Differential diagnosis to consider but not limited to arrhythmia, lecture light dyscrasia, acute kidney injury, heart failure, ACS along with other etiologies considered
Chronic conditions affecting care:
Advanced age, endometrial cancer status post total hysterectomy, diabetes type 2, osteoporosis, peripheral vascular disease, hypercholesterolemia, hypertension, prior CVA
*Radiology
Radiology exam reviewed: preliminary read by ED provider (I independently viewed and interpreted portable chest x-ray showing increased pulmonary vascular congestions consistent with congestive heart failure)
*Pulse Oximetry
SaO2: 98
Oxygen Mode of Delivery: Room air
Patient hypoxic: no
*EKG
Interpreted by ED Provider?: Yes (I independently viewed and interpreted twelve-lead EKG showing sinus tachycardia, rate 129, leftward axis, incomplete right bundle branch block, LVH, no ST elevation, this is a nonspecific abnormal EKG)
*Conduit Helper Interpretation
Rate: tachycardiac (I independently viewed and interpreted rhythm strip showing sinus tachycardia with incomplete right bundle branch)
*Critical Care Note
Total Time (30-74mins, 75-104mins- exclusive of procedures): Not Applicable
Data Reviewed
Review of Other/Old Records Reveals: Progress Notes (I reviewed office visit note from Dr. Fields dated 03/30/2025 which patient brought with her from the office. I reviewed her prior medical history along with her current medication list which
includes aspirin insulin, glipizide, metformin, rosuvastatin)
Update Note
Update Note:
Patient given 10 mg of Cardizem with minimal change in heart rate-repeated EKG does appear to be consistent with sinus tachycardia. Once I view chest x-ray, IV Lasix is ordered. Inpatient hospitalist team had already been notified by Dr. Fields
from cardiology about patient coming to the emergency department-I updated hospitalist with results here in the ER. Patient is accepted for admission for further treatment of acute decompensated heart failure
ED Attending Note
-
Portions of this chart may have been created with voice recognition software.� Occasional wrong word or��sound alike� substitutions may have occurred due to the inherent limitations of voice recognition software.
Discharge Plan
Departure
Prescriptions:
No Action
lisinopril 2.5 mg Tablet
2.5 mg PO DAILY
metformin 1,000 mg Tablet
1,000 mg PO BID@0800,1700 Qty: 60 0RF
aspirin 81 mg Tablet,Chewable
81 mg PO DAILY Qty: 0 0RF
glipizide 5 mg tablet
2.5 mg PO DAILY
rosuvastatin 20 mg tablet
20 mg PO DAILY
insulin glargine [Lantus Solostar U-100 Insulin] 100 unit/mL (3 mL) insulin pen
13 unit SC DAILY
Referrals:
Karla Pringle MD [Family Provider, Family Practice]
Interventions
Interventions:
*Risk Screen - Suicide Last Done: 03/30/25 13:21
*General Assessment Last Done: 03/30/25 13:25
*Neglect/Abuse Screening Last Done: 03/30/25 13:25
*ED COVID-19 Vaccine History Last Done: 03/30/25 13:51
*ED Influenza Vaccine History Last Done: 03/30/25 13:51
[facility] Fall Risk Assessment Tool Last Done: 03/30/25 13:51
ED- Cardiac Assessment Last Done: 03/30/25 13:51
ED- Pulmonary Assessment Last Done: 03/30/25 13:51
Discharge Date and Time
Print Language: URDU
[2025-03-30 14:25] LABS: ALT (SGPT) 21 U/L (0-35); AST (SGOT) 21 U/L (14-36); Albumin 4.5 g/dl (3.5-5.0); Alkaline Phosphatase 46 U/L (38-126); Blood Urea Nitrogen 26 mg/dl (7-17); Calcium 9.7 mg/dl (8.4-10.2); Carbon Dioxide 23 mmol/L (22-30); Chloride 105 mmol/L (98-107); Estimated Creatinine Clearance 48 ml/min; Glucose 205 mg/dl (70-99); Magnesium 1.8 mg/dl (1.6-2.3); Potassium 4.7 mmol/L (3.5-5.1); Sodium 136 mmol/L (135-145); Total Protein 7.2 g/dl (6.3-8.2); eGFR > 60.00
[2025-03-30 14:36] LABS: Troponin I 0.462 ng/ml
--- NOTE | 2025-03-30 15:47 | W.PN.CARDCBS ---
Today's Communication / Plan
-
IV heparin
amiodarone 400mg BID
IV lasix 40mg BID
trend trop
cath +/- AMBER/CV later this week if remains in arrhythmia
GDMT of CM - add coreg
Impression / Plan
-
Please see office note dated 03/30/25 to serve as H&P
Primary Machine Operator Helper: Dr. ALEX Fields
Assessment:
Presentation with SOB, palpitations
Acute HFrEF
Atrial tachycardia vs atypical atrial flutter with RVR, new diagnosis of unclear duration, suspected paroxysmal
Elevated troponin
Cardiomyopathy, EF 35% by echo 02/2025
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
History of CVA 2023
Mod MR
DM2
HTN
HLD
PAD with prior occluded R SFA
ECHO : EF 55%, aortic sclerosis, mild to moderate MR
ECHO 03/05/25: EF 35%, septal dyskinesis consistent with bundle branch block, mild LVH with moderate to severe basal septal hypertrophy, grade 1 diastolic dysfunction, moderate MR, trace TR
Plan:
- Patient was seen as new patient in office today and found to be in acute heart failure with reduced EF, as well as concerns for atrial flutter versus atrial tachycardia with recent echo showing EF of 35%, new. She was referred to the ER for
admission and additional evaluation
- Complex case.
- EKGs reviewed with EP. [place] to most likely be atrial tachycardia with bundle branch block vs less likely sinus tach as previous HRs in sinus rhythm were in 60s by review of record
- [id number] score of 9 for age, female, CVA, DM2, CHF, vascular disease, HTN. will initiate IV heparin
- also with trop 0.4, trend. no CP. continue asa
- check CVE, hgbA1c. on crestor 20mg QPM. hold OP metformin with plan for upcoming cath and place on ssi
- proBNP 38573 and chest x-ray with evidence of pulmonary edema. will diurese with IV lasix. was not on diuretic prior to admission. would place on IV lasix 40mg BID and assess response. Cr stable.
- CHF education
- will plan to diurese first and once felt to be stable from breathing standpoint, would plan for cath later this week followed by AMBER/CV if does not convert with addition of amiodarone 400mg BID.
- follow QTC by EKG
- discussed manager long term care side effects of amiodarone and plan would be to use short term then can discuss additional options with EP in OP setting
- consider follow up echo study prior to DC to reassess EF.
- GDMT as able. will add coreg 3.125mg BID in addition to OP lisinopril 2.5mg daily.
- check TSH
- discussed with hospitalist resident. d/w primary quarrying manager. d/w patient, sister, and DIL at bedside
Progress Note - Machine Operator Helper
Subjective
Date of Service: March 30, 2025
reports SOB.
Objective
Labs:
03/30/25 13:46
03/30/25 13:46
Labs
Hgb 12.0 g/dL (12.0-16.0) 03/30/25 13:46
Hct 36.8 % (37.0-47.0) L 03/30/25 13:46
Plt Count 230 10^3/uL (130-400) 03/30/25 13:46
PT 16.0 Sec (11.4-14.6) H 03/30/25 13:46
INR 1.26 03/30/25 13:46
APTT 33.0 Sec (23.4-35.0) 03/30/25 13:46
Sodium 136 mmol/L (135-145) 03/30/25 13:46
Potassium 4.7 mmol/L (3.5-5.1) 03/30/25 13:46
BUN 26 mg/dl (7-17) H 03/30/25 13:46
Creatinine 0.8 mg/dL (0.6-1.0) 03/30/25 13:46
Glucose 205 mg/dl (70-99) H 03/30/25 13:46
Troponins
03/30/25
13:46
Troponin I 0.462 H*
Vital Signs and I&O:
Vital Signs
Temp Pulse Resp BP Pulse Ox
98.2 F 112 33 118/75 98
03/30/25 13:25 03/30/25 15:00 03/30/25 15:00 03/30/25 15:00 03/30/25 14:50
Vital Signs
Temp Pulse Resp BP Pulse Ox
98.2 F 112 33 118/75 98
03/30/25 13:25 03/30/25 15:00 03/30/25 15:00 03/30/25 15:00 03/30/25 14:50
Physical Exam
Physical Exam
GEN: No distress, awake, alert, oriented x3. on supp O2
HEENT: supple, anicteric, mmm, eomi
LUNGS: Crackles B/L bases, no wheezes
CV: Reg and tachy, S1/S2, 1/6 murmur
ABD: soft, BS+, NT/ND
EXT: No cyanosis, clubbing, edema
NEURO: Gross non-focal
SKIN: Warm, pink, dry. No rash
--- NOTE | 2025-03-30 15:47 | HPS.HSE ---
Addendum entered and electronically signed by Wade Varghese MD 03/30/25 18:59:
This is an addendum to H&P written by Shanti Martinez on 03/30/2025. �Patient seen and examined independently with resident.
84-year-old female past medical history of cardiomyopathy with reduced EF, right bundle branch block, moderate mitral regurgitation, CVA, hypertension, type 2 diabetes, peripheral vascular disease, presenting from cardiology office for shortness of
breath for 2 weeks.�
EKG cardiology office showed possible atrial flutter with 2-1 conduction and sinus tachycardia.
Vital signs here show tachycardia up to 125. �EKG here shows sinus tachycardia.
Labs shows cardiac BNP of 13,000. �Troponin 0.462. �Leukocytosis of 11.5. �Chest x-ray shows pulmonary edema.
Patient with what appears to be possibly new onset atrial flutter and tachycardia induced acute HFrEF exacerbation. �10 IV Cardizem given in ER. �Heparin drip started. �Cardiology consulted recommending amiodarone. �N.p.o. past midnight for possible
catheterization tomorrow.
Original Note:
Family Physician
-
Family Physician: Karla Pringle
Chief Complaint
-
Shortness of breath
History of Present Illness
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
of presumed new onset atrial flutter with acute HFrEF. She she was seen in cardiology office for shortness of breath ongoing for 2-week and some weight gain. In the cardiology office they did an EKG and found HR 130 and possible atrial flutter
with 2:1 conduction. She denies palpitations, CP, LE edema. She is not on blood thinners.
In the ED, EKG shows sinus tachycardia, labs shows elevated troponin 0.4, proBNP 13,300, leukocytosis 11,500. S/P IV lasix and IV Cardizem 10 mg.
Medical History
Past Medical History
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
Past Surgical History: Reports Other
Social History
Tobacco: Non-smoker
Alcohol: None
Drug: None
Personal: Single
Living: Alone
Employment: Retired
Family History
Family History: Not pertinent
Allergies / Home Medications
Allergies reflects when Allergies were last updated in [facility].
Home Medications with original date entered in [facility]
Allergy/Medication List:
Allergies
Allergy/AdvReac Type Severity Reaction Status Date / Time
No Known Allergies Allergy Verified 03/30/25 13:29
Home Medications
lisinopril 2.5 mg tablet 2.5 mg PO DAILY 03/29/24
aspirin 81 mg chewable tablet 81 mg PO DAILY #0 tabs 04/01/24
metformin 1,000 mg tablet 1,000 mg PO BID@0800,1700 #60 tabs 04/01/24
glipizide 5 mg tablet 2.5 mg PO DAILY Diabetes 03/30/25
insulin glargine 100 unit/mL (3 mL) subcutaneous pen (Lantus Solostar U-100 Insulin) 13 unit SC DAILY Diabetes 03/30/25
rosuvastatin 20 mg tablet 20 mg PO DAILY 03/30/25
Review of Systems
-
History Source: Patient
A 12 point ROS was completed and negative except as noted: Yes
Physical Exam
Vital Signs
Vital Signs
Temp Pulse Resp BP Pulse Ox
98.2 F 112 33 118/75 98
03/30/25 13:25 03/30/25 15:00 03/30/25 15:00 03/30/25 15:00 03/30/25 14:50
Physical Exam
General: Comfortable, Conversant and Other (on 2 L nasal cannula)
Respiratory: Decreased Breath Sounds
Cardiac: S1/S2 and Regular Rhythm
GI: Soft, Non Tender and Non Distended
Musculoskeletal: Other (Trace 1+ edema left lower extremity)
Skin: Warm
Neuro: AO x 3
Hematologic/Lymphatic: No Lymphadenopathy
Psych: Calm
Laboratory Results
-
03/30/25 13:46
03/30/25 13:46
Laboratory Results
PT 16.0 Sec (11.4-14.6) H 03/30/25 13:46
INR 1.26 03/30/25 13:46
APTT 33.0 Sec (23.4-35.0) 03/30/25 13:46
Total Bilirubin 1.0 mg/dl (0.2-1.3) 03/30/25 13:46
AST 21 U/L (14-36) 03/30/25 13:46
ALT 21 U/L (0-35) 03/30/25 13:46
Alkaline Phosphatase 46 U/L (38-126) 03/30/25 13:46
Troponin I 0.462 ng/ml H* 03/30/25 13:46
Data Reviewed
-
Medical Tests (Nuc Med, Echo, EKG etc): Image Personally Visualized and interpreted, Report Reviewed by me and Discussed with Physician
Lab Data: Labs Reviewed by me and Discussed with Physician
Impression/Plan
-
IMPRESSION:
Acute on chronic heart failure with reduced ejection fraction
Sinus tachycardia
Acute hypoxic respiratory insufficiency
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
Type 2 diabetes mellitus
hyperlipidemia
Hypertension
PLAN:
Acute on chronic heart failure with reduced ejection fraction
Admit to IVU
Elevated troponin levels 0.4, elevation of proBNP 13,300
Trend troponin every 6h
Cardiology aware, possible cath tomorrow.
IV Lasix daily. She was not on diuretics at home.
Start IV heparin
NPO after midnight
Monitor weight, I/O daily
Consult cardiology
Previous echocardiogram 02/2025: Left ventricular ejection fraction 35, moderate mitral regurgitation
Sinus tachycardia
Presumed paroxysmal atrial flutter as seen in outpatient EKG at cardiology office today
EKG in hospital interpreted as sinus tachycardia.
Cardiology recommended initiating amiodarone for rhythm control.
She was not previously on beta-landen.
Monitor QT interval on amiodarone.
Check TSH
Acute hypoxic respiratory insufficiency
On 2 L of oxygen
Wean as able
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
Continue aspirin and statin
Type 2 diabetes mellitus
Continue home dose Lantus
Hold metformin and glipizide
Sliding scale
Hypertension
Continue lisinopril 2.5 mg
Hyperlipidemia
Continue statin
Full code
IV Heparin
Diabetic diet
[2025-03-30] MEDS: LASIX 40 MG IV (15:57)
[2025-03-30] MEDS: PACERONE 400 MG PO (19:59)
[2025-03-30 20:16] LABS: Hematocrit 32.6 % (37.0-47.0); Hemoglobin 11.2 g/dL (12.0-16.0); Mean Corp Hgb Conc. 34.4 g/dL (33.0-37.0); Mean Corpuscular Volume 86.5 fL (81.0-99.0); Platelet Count 206 10^3/uL (130-400); Red Cell Dist. Width 13.5 % (11.5-14.5)
[2025-03-30 20:24] LABS: APTT 33.6 Sec (23.4-35.0)
[2025-03-30 20:41] LABS: Troponin I 0.593 ng/ml
[2025-03-30 20:59] LABS: TSH 0.87 uIU/ml (0.47-4.68)
[2025-03-30] MEDS: HEPARIN 25000 UNITS/250 ML IV (21:05)
[2025-03-30] MEDS: HEPARIN 4000 UNITS IV (21:07)
[2025-03-30] MEDS: COREG 3.125 MG PO (21:09)
[2025-03-30] MEDS: NOVOLOG FLEXPEN-LOW RESISTANCE SC (21:58)
[2025-03-30 22:18] LABS: Glucose - Point of Care 332 mg/dl (70-99)
--- NOTE | 2025-03-30 22:31 | PTCARENOTE ---
Addendum entered by Tasha Momin RN 03/31/25 01:35:
O2 increased to 3L, 20IV Lasix given
Addendum entered by Tasha Momin RN 03/31/25 00:32:
When this nurse returned to pt's room. Pt stated 'I think I passed out. I feel sick'. Pt was in the bed at that time. RR 22 PB 114/74 pulse 112, PlOx 96 on 2 L. BS rechecked 374. BEAN PICKER made aware. STAT EKG, ABG ordered.
Original Note:
Pt admitted to room 3784. Pt AAO x 3, but forgetful. Pt c/o sob stated 'I don't feel well' 96% on 2 L. Pt was able to ambulate a few steps, c/o weakness. Pt oriented to room, call lopez within reach.
[2025-03-30] MEDS: NOVOLOG FLEXPEN 4 UNITS SC (23:07)
[2025-03-31] VITALS (15 sets, daily range): BP systolic 100–146; BP diastolic 54–102; BMI 29.8
[2025-03-31 00:09] LABS: Glucose - Point of Care 374 mg/dl (70-99)
--- NOTE | 2025-03-31 00:20 | W.PN.UPDATE ---
Update Note
Progress Note Update
-Called at the bedside as the patient is not feeling. Patient complained of slightly sob. afebrile. bp 114/95, hr 108, RR 20, SPo2 96% on 2L of O2. LL side noted with crackle on the exam.
-Ekg, abg, duo nebs PRN and one time order of Lasix 20mg IV ordered.
-abg result noted.
[2025-03-31] MEDS: DUONEB 3 ML INH (00:29)
[2025-03-31 00:34] LABS: B.E. -5.2 mmol/L; HCO3 18.6 mmol/L (21-28); O2 Saturation % 96.7 % (94-98); PCO2 30 mmHg (32-35); PO2 83 mmHg (83-108)
[2025-03-31 01:07] LABS: Glucose - Point of Care 372 mg/dl (70-99)
[2025-03-31] MEDS: NOVOLOG FLEXPEN 4 UNITS SC (01:21)
[2025-03-31] MEDS: LASIX 20 MG IV (01:30)
[2025-03-31 01:49] LABS: Troponin I 0.822 ng/ml
[2025-03-31 03:24] LABS: Glucose - Point of Care 311 mg/dl (70-99)
[2025-03-31 03:54] LABS: APTT 92.6 Sec (23.4-35.0)
[2025-03-31 04:26] LABS: Hematocrit 33.1 % (37.0-47.0); Hemoglobin 11.5 g/dL (12.0-16.0); Mean Corp Hgb Conc. 34.7 g/dL (33.0-37.0); Mean Corpuscular Volume 85.1 fL (81.0-99.0); Platelet Count 212 10^3/uL (130-400); Red Cell Dist. Width 13.4 % (11.5-14.5)
[2025-03-31 04:31] LABS: Blood Urea Nitrogen 34 mg/dl (7-17); Calcium 9.4 mg/dl (8.4-10.2); Carbon Dioxide 21 mmol/L (22-30); Chloride 104 mmol/L (98-107); Estimated Creatinine Clearance 38 ml/min; Glucose 314 mg/dl (70-99); HDL Cholesterol 42 mg/dl; LDL Cholesterol, Calculated 35 mg/dl; Magnesium 1.9 mg/dl (1.6-2.3); Potassium 4.7 mmol/L (3.5-5.1); Sodium 133 mmol/L (135-145); Very Low Density Lipoprotein 13 mg/dl (0-30); eGFR 56.25
[2025-03-31 08:04] LABS: Glycohemoglobin (HgbA1c) 6.6 % (4.0-5.9)
--- NOTE | 2025-03-31 08:12 | PTCARENOTE ---
Received patient sleeping this morning with her HOB elevated, breathing less labored than reported by cost consultant. Awoke when we entered the room, IV heparin infusing as per protocol, patient ordering breakfast.
[2025-03-31] MEDS: COREG 3.125 MG PO (08:31)
[2025-03-31] MEDS: CRESTOR 20 MG PO (08:31)
[2025-03-31] MEDS: LASIX 40 MG IV (08:31)
[2025-03-31] MEDS: LOW STRENGTH ASPIRIN 81 MG PO (08:32)
[2025-03-31] MEDS: PACERONE 400 MG PO ×2 (08:32→21:30)
[2025-03-31] MEDS: ZESTRIL 2.5 MG PO (08:32)
[2025-03-31] MEDS: FLUSH (NSS) 2 FLUSH IV (08:33)
--- NOTE | 2025-03-31 08:57 | W.PN.HOSP.TC ---
Today's Communication/Plan
-
ACS protocol. IV Lasix. Cardiology and neurology eval.
Assessment / Plan
Assessment / Plan
Physical Exam
General: Comfortable, Conversant and Other (on 2 L nasal cannula)
Respiratory: Decreased Breath Sounds
Cardiac: S1/S2 and Regular Rhythm
GI: Soft, Non Tender and Non Distended
Musculoskeletal: Other (Trace 1+ edema left lower extremity)
Skin: Warm
Neuro: AO x 3, no neuro deficits
Hematologic/Lymphatic: No Lymphadenopathy
Psych: Calm
A/P:
Acute on Chronic Heart Failure with Reduced Ejection Fraction. Elevated troponin type I versus type II [place].
Admitted to IVU
Elevated troponin levels 0.4 and it peaked to 1.5, elevation of proBNP 13,300
Trend troponin
Cardiology aware, possible cath today-echo first
IV Lasix daily. She was not on diuretics at home. Lasix IV 40 m twice daily.
Continue IV heparin
Remains NPO
Monitor weight, I/O daily
Consulted cardiology and input appreciated
Previous echocardiogram 02/2025: Left ventricular ejection fraction 35, moderate mitral regurgitation
Discussed with family at bedside today
Sinus Tachycardia
Presumed Paroxysmal Atrial Flutter
Sudden onset of transient dizziness double vision
Seen in outpatient EKG at cardiology office today
EKG in hospital interpreted as sinus tachycardia
Cardiology recommended initiating amiodarone for rhythm control
She was not previously on beta-landen
Monitor QT interval on amiodarone
Check TSH
Neurology consulted--> plan for MRI of the brain
Acute Hypoxic Respiratory Insufficiency
On 2 L of oxygen
Wean as able
History of [place] P[place]DER Stroke
Continue aspirin and statin
Type 2 Diabetes Mellitus
Continue home dose Lantus
Hold metformin and glipizide
Sliding scale
Hypertension
Continue lisinopril 2.5 mg
Hyperlipidemia
Continue statin
Full Code
IV Heparin
Diet: Diabetic
Total time spent on today's encounter was 52 minutes which included time spent in counseling the patient/family regarding diagnosis and treatment plan as listed above, goals of care, and symptom management. Case was discussed with nursing staff,
specialists, and care coordinators/case management. All labs and imaging personally reviewed by me. Remainder the time spent in detailed review of previous records, lab data, imaging, and other medical provider documentation.
Anticipated Discharge: > 48 hours
Subjective/Interval History
-
Date of Service: March 31, 2025
Objective Data
-
Labs:
Laboratory Results
03/31/25 03/31/25 03/31/25
00:27 03:09 09:00
WBC 11.9 H
Hgb 11.5 L
Hct 33.1 L
Plt Count 212
APTT 92.6 H Pending
HCO3 18.6 L
Sodium 133 L
Potassium 4.7
Chloride 104
Carbon Dioxide 21 L
BUN 34 H
Creatinine 1.0
Glucose 314 H
Calcium 9.4
Vital Signs:
Vital Signs
Temp Pulse Resp BP Pulse Ox
97.4 F 106 20 115/70 98
03/31/25 08:08 03/31/25 08:31 03/31/25 08:08 03/31/25 08:31 03/31/25 08:08
I&O
03/30/25 03/31/25 04/01/25
06:59 06:59 06:59
Intake Total 150 / 150
Balance 150 / 150
[2025-03-31 09:12] LABS: Glucose - Point of Care 262 mg/dl (70-99)
[2025-03-31] MEDS: LANTUS 0.13 UNITS SC (09:14)
[2025-03-31] MEDS: NOVOLOG FLEXPEN-LOW RESISTANCE 3 UNITS SC (09:15)
[2025-03-31 10:00] LABS: APTT 67.6 Sec (23.4-35.0)
[2025-03-31 10:28] LABS: Troponin I 1.550 ng/ml
[2025-03-31 11:06] LABS: Glucose - Point of Care 370 mg/dl (70-99)
--- NOTE | 2025-03-31 11:25 | PTCARENOTE ---
Patient voided 300ml of dark uma urine since receiving lasix 40mg IV this AM, bladder scan was 0. Patient remains very orthopneic, appears pale and clammy. Accu check 370. TT to Dr. Ayala and Dr. Marquez re: symptoms and bumped troponin. Patient
seen by Carol WEINSTEIN, will do echo and possible cath vs CT Chest PE protocol pending echo results. Patient uncomfortable in the bed and now sitting in the chair, on 3L NC, sister at the bedside.
--- NOTE | 2025-03-31 11:32 | W.PN.CARDCBS ---
Addendum entered and electronically signed by Nishant Negron MD 04/01/25 09:38:
Addendum:
Prior MRI brain 03/30/24 showed acute stroke
Most recent MRI brain 03/31/2025 did not show an acute stroke
Addendum entered and electronically signed by Nishant Negron MD 03/31/25 17:50:
I saw and examined the patient on morning rounds.
The Coater Operator's note was reviewed and I agree with the note.
Comment: Briefly, 84-year-old woman past medical history of heart failure with reduced ejection fraction who was evaluated in the outpatient office on 03/30 and found to be in atrial tachycardia with rapid ventricular response and acute decompensated
heart failure.
Echo performed earlier today shows worsening LVEF of 20-25% and lactate is mildly elevated consistent with a low-flow state
Empiric milrinone started for inotropic support
Hold carvedilol given low flow state
With rising creatinine would hold lisinopril
Start hydralazine for afterload reduction
Continue IV Lasix
Troponin continues to trend up most recently 1.7
Continue aspirin/heparin
Eventual left and right heart cath - will need to discuss timing with neurology given MRI shows acute/subacute infarct
Continue amiodarone to maintain sinus rhythm
Original Note:
Today's Communication / Plan
-
stat follow up echo
consider for L/R cath today if schedule allows
continue asa, IV heparin, statin, coreg
continue amio for now. repeat EKG.
Impression / Plan
-
Please see office note dated 03/30/25 to serve as H&P
Primary Bumper Operator: Dr. ALEX Fields
Assessment:
Presentation with SOB, palpitations
Acute HFrEF
Atrial tachycardia vs atypical atrial flutter with RVR, new diagnosis of unclear duration, suspected paroxysmal
Elevated troponin
Cardiomyopathy, EF 35% by echo 02/2025
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
History of CVA 2023
Mod MR
DM2
HTN
HLD
PAD with prior occluded R SFA
ECHO 04/17/24: EF 55%, aortic sclerosis, mild to moderate MR
ECHO 03/05/25: EF 35%, septal dyskinesis consistent with bundle branch block, mild LVH with moderate to severe basal septal hypertrophy, grade 1 diastolic dysfunction, moderate MR, trace TR
Plan:
- She was seen in office 03/30 as a new patient and sent to ER as complained of shortness of breath, with heart rate in the 130s and echo from 03/05/2025 showing new EF of 35%
- Overnight she has not had the prolific urine output 1 would expect with acute heart failure and a proBNP of 13,300. She was bladder scanned for 0 after voiding. Weight is down 1 pound overnight if accurate.
- In addition her BUN/creatinine are uptrending. Will hold additional Lasix for now. Outpatient metformin and lisinopril also on hold
- Her heart rates were significantly elevated in the 130s in the office, as well as on arrival to the ER. [place] to be most likely an atrial tachycardia versus possible sinus tachycardia. She was started on amiodarone and heart rates have trended
down to the 90s. Will repeat an EKG today, as presently appears to be in a sinus rhythm
- Her troponin continues to trend up, 1.5, trend to peak
- Continue aspirin, IV heparin, Coreg
- Last echo from 03/05/2025 with results as above. Will repeat this morning
- Would consider for left and right heart cardiac catheterization today pending echo results if schedule allows. Differential diagnosis would include PE, and would consider for CTA pending results of cath. She denies recent long car rides/travel.
She does report she is relatively sedentary. She denies prior clotting issues
- LDL 35. Continue Crestor.
- TSH WNL
- discussed with nursing. d/w sister at bedside
Progress Note - Bumper Operator
Subjective
Date of Service: March 31, 2025
remains with SOB and dry cough. no CP
Objective
Labs:
03/31/25 03:09
03/31/25 03:09
Labs
Hgb 11.5 g/dL (12.0-16.0) L 03/31/25 03:09
Hct 33.1 % (37.0-47.0) L 03/31/25 03:09
Plt Count 212 10^3/uL (130-400) 03/31/25 03:09
PT 16.0 Sec (11.4-14.6) H 03/30/25 13:46
INR 1.26 03/30/25 13:46
APTT 67.6 Sec (23.4-35.0) H 03/31/25 09:29
Sodium 133 mmol/L (135-145) L 03/31/25 03:09
Potassium 4.7 mmol/L (3.5-5.1) 03/31/25 03:09
BUN 34 mg/dl (7-17) H 03/31/25 03:09
Creatinine 1.0 mg/dL (0.6-1.0) 03/31/25 03:09
Glucose 314 mg/dl (70-99) H 03/31/25 03:09
Troponins
03/30/25 03/30/25 03/31/25
13:46 20:06 01:02
Troponin I 0.462 H* 0.593 H* D 0.822 H* D
03/31/25
09:29
Troponin I 1.550 H*
Vital Signs and I&O:
Vital Signs
Temp Pulse Resp BP Pulse Ox
97.4 F 106 20 115/70 98
03/31/25 08:08 03/31/25 08:31 03/31/25 08:08 03/31/25 08:31 03/31/25 08:08
Vital Signs
Temp Pulse Resp BP Pulse Ox
97.4 F 106 20 115/70 98
03/31/25 08:08 03/31/25 08:31 03/31/25 08:08 03/31/25 08:31 03/31/25 08:08
Intake & Output
03/29/25 03/30/25 03/31/25 04/01/25
07:59 07:59 07:59 07:59
Intake Total 150 / 510 360 / 360
Balance 150 / 510 360 / 360
Physical Exam
Physical Exam
GEN: No distress, awake, alert, oriented x3. on supp O2. sitting in chair
HEENT: supple, anicteric, mmm, eomi
LUNGS: Poor air movement, no wheezes
CV: Reg, S1/S2, 1/6 murmur
ABD: soft, BS+, NT/ND
EXT: No cyanosis, clubbing. trace edema of ankles
NEURO: Gross non-focal
SKIN: Warm, pink, dry. No rash
--- NOTE | 2025-03-31 11:53 | PTCARENOTE ---
Patient assisted from the chair to the bed for EKG and PCXR. Her sister states that the patient was reporting seeing double on the TV (2 heads on the screen and not one). Transferred to the bed and stated she felt very dizzy and was slightly
nauseated. Dr. Ayala on the floor and updated. Upon entering the room she states the double vision was no longer there and the dizziness had subsided. PCXR done, awaiting follow up echo. Sisters at the bedside, call lopez in reach.
--- NOTE | 2025-03-31 12:41 | CON.NEURO4 ---
Addendum entered and electronically signed by Juan C Wright MD 03/31/25 14:00:
Studies reviewed.
I have personally examined the patient. I reviewed and agree with the PBX INSPECTOR's Note.
My addenda:
Awake, alert, interactive. No acute distress.
Speech intact.
Follows 2-step requests w/o difficulty. No tremor.
Extra-ocular movements grossly intact. Bilateral ptosis right greater than left
Facial movements full and symmetric. Hearing intact to normal conversational volume.
Normal UE movements bilaterally.
Neck: full ROM.
Chest: no dyspnea
Heart: no JVD
Ext: (-) Clubbing, (-) Cyanosis, (-) Edema
IMPRESSIONS/RECOMMENDATIONS:
Abrupt onset of ptosis in a patient with prior episodes of ptosis and prior history of right pontine ischemic stroke.
Unclear if the patient's ptosis is related to her prior stroke although the fact that she is experiencing ptosis contralaterally suggests against this possibility. Differential diagnosis includes myasthenia gravis
Check MRI of brain without contrast
Check acetylcholine receptor antibodies
Consider rehabilitation evaluations
Continue both heparin and aspirin as per cardiology
D/W patient
All questions answered.
Will continue to follow patient.
Original Note:
Documented by User: Purnima Dean NP 03/31/25 13:45
Consultation - Neurology 4
-
CONSULTING PHYSICIAN: Juan C Wright MD
REFERRING PHYSICIAN: Hospitalists/Dr. Ayala
DICTATED BY: WINSOME Shah
DATE/TIME OF REQUEST: 03/31/25
DATE/TIME OF CONSULTATION: 03/31/25
Reason for Consultation: Diplopia and dizziness
History of Present Illness:
This is an 84-year-old right-handed female who has presented to the hospital on 03/30/25 as per recommendation by outpatient Cardiology evaluation by Dr. Fields for further evaluation of tachycardia and dyspnea due to concern of heart failure and
paroxysmal atrial flutter. Patient had noted several weeks of dyspnea [place] [address], troponin is 1.55, and glucose is currently 314. She was started on an IV Heparin infusion. She is followed by our Neurology service for a
right pontine ischemic stroke in March 2024.
From my most recent outpatient evaluation on 10/19/24:
''Adapted from inpatient consultation note by Lauren SCHUMACHER and Dr. Wright:
'DATE/TIME OF CONSULTATION: 03/30/2024
Reason for Consultation: diplopia/trouble with gait
History of Present Illness:This is a 83 year old female patient who has presented to the hospital with acute onset of diplopia and gait dysfunction starting after 1030 yesterday morning (03/29/2024). She noted trouble with gait and vision when she
was walking to the the BR. She reported diplopia was only noted in her right eye, not both. Diplopia has improved and is now intermittent. She did note diplopia again of just the right eye when watching TV this am. Otherwise is now just blurry. No
visual issues with the left eye. She did ambulate to the BR and gait is still a bit unsteady. She denies any upper extremity weakness. She does note mild right leg weakness. She also states that yesterday she had numbness of lips and part of her
tongue. She has no history of stroke. She does not take any antiplatelet. She denies any similar episodes in the past. She does live alone.Abrupt onset of gait dysfunction and diplopia. Due to acute right pontine ischemic stroke as seen by MRI of
brain; CTA head and neck was unrevealing. Patient was not a candidate for either tenecteplase or intra-arterial thrombectomy due to NIH stroke scale less than 6
o�� Provide combination of aspirin and clopidogrel with permanent use of aspirin alone after 21 days.��
Add rosuvastatin 40 mg daily due to significantly elevated LDL.'
Follow-Up Visit Note:�������
(10/19/24) Patient seen in the office today with her sisters. She reports that she has been doing well. Her diplopia has completely resolved and she denies any gait dysfunction. She denies any headaches, dizziness, vision changes, speech/swallow
difficultly, numbness, and weakness. She continues on aspirin 81mg daily.She and her sisters report that her short term memory difficulty has been stable since her last visit. She continues to drive locally and denies getting lost/any accidents. She
has almost completed cognitive therapy and she has been playing [employer] at home. She does note bilateral pulsatile tinnitus first thing in the morning when she wakes up most days of the week.�This resolves about an hour later, after she has taken
her morning medications. She does not check her blood pressure at home.''
Patient reports that this morning around 1100 she was watching TV and the person on the screen was [id number] double. The double vision occurred only while looking up at the TV, not with anything lower to the ground. This lasted for about 30
minutes before resolving. Around 1230 she turned over in bed while getting an echocardiogram and notes 30 seconds of feeling dizzy. Currently she is sitting in a chair and reports feeling at her baseline. She notes having 'droopy eyelids' for the
past year. She denies any headache, speech/swallow difficulty, numbness, and weakness.
Past Medical History: Right pontine ischemic stroke 03/2024, cognitive impairment, DM, osteoporosis, PVD, HLD, HTN, Endometrial cancer
Surgical History: Hysterectomy
Family History: Mother- strokes.
Social History: Denies tobacco, alcohol, and illicit drug use.
Allergies: No known allergies.
Home Medications: See below.
Review of Symptoms:
Patient denies any fever, headache, chest pain, shortness of breath, GI or symptoms.
�Per the HPI.�All systems are reviewed negative except above.
Physical Exam:
The patient is afebrile, abdomen is nondistended, breathing is unlabored, skin is warm and dry, no edema.
NIH Stroke Scale:
I performed the NIH stroke scale on the patient on 03/31/25 at 1300. The patient scored 2 points on the NIH stroke scale assessment, which were assigned as follows: See below.
Neurologic Examination:
The patient is awake, alert and oriented x 3. She is able to follow commands and answer questions appropriately. There is no aphasia or dysarthria. On cranial nerve assessment, pupils are 3 mm bilateral, round and reactive to light and
accommodation. There is a bilateral ptosis, more pronounced on the right side. Visual hassan seemed reduced on the left side in the right eye, full in the left eye. Extraocular movements are intact. Facial sensations are intact and bilaterally
symmetrical, there is no facial asymmetry. Hearing is intact bilaterally to normal conversation volume. Tongue palate and uvula are midline. Sternocleidomastoid strengths are full bilaterally. Motor strengths are 5/5 bilateral upper and lower
extremities on medical research [place] scale. There is no drift or involuntary movement noted. There was no extinction noted on double simultaneous stimulation. Coordination is intact by finger to nose bilaterally.
Lab Results: See below.
Neuro Imaging: None.
Differentials for the patient's presentation include:
1. Transient diplopia and dizziness with report of a one year history of 'droopy eyelid.' Etiology is possibly exacerbation of previous stroke symptoms due to metabolic disturbance; hyperglycemia. Differential diagnosis includes a new small
ischemic stroke in the setting of several weeks of possible cardiac arrhythmia, or myasthenia gravis.
2. Right pontine ischemic stroke 03/2024.
3. Cognitive impairment.
Patient has the following risk factors for their symptoms:
IV Tenecteplase/IAT candidacy: Not a candidate due to being therapeutic on a heparin drip and low NIHSS.
Recommendations:
-Continue IV heparin infusion and aspirin 81mg daily per Cardiology recommendations.
-MRI brain noncontrast ordered.
-Acetylcholine and MUSK antibodies pending.
-Goal normotension.
-LDL goal <70. LDL is 35. Continue home rosuvastatin 20mg daily as LDL is at goal.
-Goal normoglycemia, hbA1c is 6.6.
-NIHSS and neurological checks per unit guidelines.
-Provide patient/family with a stroke education packet.
-PT/OT evaluations.
Discussed patient care with: Dr. Wright, the patient
Vital Signs and Labs
-
Vital Signs and Labs:
Vital Signs
Temp Pulse Resp BP Pulse Ox
97.4 F 94 18 123/68 100
03/31/25 11:37 03/31/25 11:47 03/31/25 11:37 03/31/25 11:47 03/31/25 11:37
Lab Results
03/31/25 03:09
03/31/25 03:09
PT 16.0 Sec (11.4-14.6) H 03/30/25 13:46
INR 1.26 03/30/25 13:46
APTT 67.6 Sec (23.4-35.0) H 03/31/25 09:29
Sodium 133 mmol/L (135-145) L 03/31/25 03:09
Potassium 4.7 mmol/L (3.5-5.1) 03/31/25 03:09
BUN 34 mg/dl (7-17) H 03/31/25 03:09
Glucose 314 mg/dl (70-99) H 03/31/25 03:09
Calcium 9.4 mg/dl (8.4-10.2) 03/31/25 03:09
Vgn-G-Yygkhgsrpau Pept 39355 pg/ml 03/30/25 13:46
LDL Cholesterol, Calc 35 mg/dl 03/31/25 03:09
Medications
-
Active Medications
Generic Name Dose Route Start Last Admin
Trade Name Freq PRN Reason Stop Dose Admin
Albuterol/Ipratropium 3 ml 03/31/25 00:16 03/31/25 00:29
Ipratropium 0.5/Albuterol 3 Mg (3 Ml Ampul) INH 3 ml
R Q4HPRN PRN Administration
sob/wheezing
Protocol
Amiodarone HCl 400 mg 03/30/25 20:00 03/31/25 08:32
Amiodarone 200 Mg Tablet PO 04/27/25 19:59 400 mg
BID BRENT Administration
Aspirin 81 mg 03/31/25 08:00 03/31/25 08:32
Aspirin 81 Mg Chewable Tablet PO 04/28/25 07:59 81 mg
DAILY BRENT Administration
Bisacodyl 10 mg 03/30/25 19:37
Bisacodyl 10 Mg Rectal Suppository RECTAL 04/27/25 19:36
[id number] PRN
constipation
Carvedilol 3.125 mg 03/30/25 20:00 03/31/25 08:31
Carvedilol 3.125 Mg Tablet PO 04/27/25 19:59 3.125 mg
BID BRENT Administration
Dextrose 12.5 grams 03/30/25 19:37
Dextrose 50% (0.5 Grams/Ml) 50 Ml Syringe IV 04/27/25 19:36
[id number] PRN
hypoglycemia
Protocol
Furosemide 40 mg 03/31/25 08:00 03/31/25 08:31
Furosemide 40 Mg (10 Mg/Ml) 4 Ml Vial IV 04/28/25 07:59 40 mg
BID@0800,1600 BRENT Administration
Glucagon 1 mg 03/30/25 19:37
Glucagon 1 Mg Vial IM 04/27/25 19:36
PRN PRN
hypoglycemia
Protocol
Heparin Sodium 25,000 units in 250 mls @ 0 mls/hr 03/30/25 19:37 03/30/25 21:05
Heparin 05087 Units/250 Ml IV 250 mls
PER PROTOCOL BRENT Administration
Protocol
Per Protocol
Insulin Glargine 13 units/ 0.13 mls @ 0 mls/hr 03/31/25 08:00 03/31/25 09:14
Device SC 04/28/25 07:59 0.13 mls
DAILY BRENT Administration
As Directed
Sodium Chloride 250 mls @ 125 mls/hr 03/31/25 12:39
Nss IV 03/31/25 14:38
BOLUS ONE
Insulin Aspart 0 units 03/30/25 19:37 03/31/25 09:15
Insulin Aspart Low Resistance 300 Units/3 Ml Pen.Injctr SC 04/27/25 19:36 3 units
AC BRENT Administration
Protocol
Lisinopril 2.5 mg 03/31/25 08:00 03/31/25 08:32
Lisinopril 2.5 Mg Tablet PO 04/28/25 07:59 2.5 mg
DAILY BRENT Administration
Polyethylene Glycol 17 grams 03/30/25 19:37
Polyethylene Glycol Powder 17 Grams Packet PO 04/27/25 19:36
DAILYPRN PRN
constipation
Rosuvastatin Calcium 20 mg 03/31/25 08:00 03/31/25 08:31
Rosuvastatin (Crestor) 20 Mg Tablet PO 04/28/25 07:59 20 mg
DAILY BRENT Administration
Senna/Docusate Sodium 1 tablet 03/30/25 19:37
Docusate W/Senna (Alba-Colace) Tablet PO 04/27/25 19:36
BIDPRN PRN
constipation
Sodium Chloride 0 flush 03/30/25 20:00 03/31/25 08:33
Sodium Chloride 0.9% (Flush) Syringe IV 04/27/25 19:59 2 flush
PER PROTOCOL BRNET Administration
Home Medications
�Medication �Instructions �Recorded
lisinopril 2.5 mg tablet 2.5 mg PO DAILY Heart 03/29/24
Disease/Condition
aspirin 81 mg chewable tablet 81 mg PO DAILY #0 tabs 04/01/24
metformin 1,000 mg tablet 1,000 mg PO BID@0800,1700 #60 tabs 04/01/24
glipizide 5 mg tablet 2.5 mg PO DAILY Diabetes 03/30/25
insulin glargine 100 unit/mL (3 13 unit SC DAILY Diabetes 03/30/25
mL) subcutaneous pen (Lantus
Solostar U-100 Insulin)
rosuvastatin 20 mg tablet 20 mg PO DAILY High Cholesterol 03/30/25
NIH Stroke Score
Subsequent NIH Scale
Date of Subsequent NIH Scale: 03/31/25
Time of Subsequent NIH Scale: 13:00
NIH Stroke Score
Level of Consciousness: 0 - Alert
LOC Questions: 0-Answers both correctly
LOC Commands: 0-Performs both correctly
Best Horizontal Gaze: 0-Normal
Visual Hassan: 1=Partial hemianopia
Facial Palsy: 1=Minor paralysis
Motor - Right Arm: 0=No drift 10 seconds
Motor - Left Arm: 0=No drift 10 seconds
Motor - Right Le-No drift 5 seconds
Motor - Left Le-No drift 5 seconds
Limb Ataxia: 0-Absent
Sensation: 0-Normal
Best Language: 0-No aphasia
Dysarthria: 0-Normal
Extinction and Inattention: 0-No abnormality
NIH Total Score:: 2
Modified Conway (mRS) Score
Modified [place] Scale (mRS): No significant disability. Able to carry out usual activities.
Score: 1
Alteplase Contraindication
Inclusion and Exclusion criteria reviewed: Yes
Reasons for NON-Tx with Thrombolytics ABSOLUTE Exclusions: On IV Heparin within last 48hrs and elevated PTT
IAT Contraindications: NIHSS < 6

Documented by User: Juan C Wright MD 03/31/25 13:50
NIH Stroke Score
NIH Stroke Score
NIH Total Score:: 2
Modified Conway (mRS) Score
Score: 1
[2025-03-31 12:45] LABS: Glucose - Point of Care 341 mg/dl (70-99)
[2025-03-31] MEDS: NSS 250 IV (12:49)
[2025-03-31] MEDS: NOVOLOG FLEXPEN-LOW RESISTANCE 4 UNITS SC (12:49)
--- NOTE | 2025-03-31 14:15 | W.PN.UPDATE ---
Addendum entered and electronically signed by Elana Crocker MD 03/31/25 18:41:
I saw and examined the patient.
The Electronic Parts Designer's note was reviewed and I agree with the note.
Comment: As I was reviewing everything with the patient and discussing taking her to right and left heart catheterization later today given uptrending BUN and creatinine with poor urine output and newly reduced LV systolic function and concern for
possible low-flow state, we were informed that patient had an urgent neurologic evaluation due to new complaints of double vision. Plan from a neurologic standpoint is to obtain a brain MRI.
Friends at bedside. We sent a repeat BMP and lactate. BMP showing increasing creat at 1.2, lactate also elevated 2.2
Discussed with neurologist, Dr. Juan C Wright. Given their concern for possible acute stroke with brain MRI still pending, patient is not felt to be safe to proceed with left or right heart catheterization. Given concern based on rising
creatinine, reduced urine output, newly reduced LV systolic function and an elevated lactate, decision is made to preemptively start low-dose milrinone given concern for low cardiac output state/cardiogenic shock.
Plan to follow every 6 hours lactates and CMP's keeping a close eye on renal and liver function with an JOON that is noted.
Will discuss timing of the cath based on findings of the brain MRI and overall clinical progress. Will continue IV diuresis likely in the morning with milrinone on board to help promote diuresis.
Discussed all of the above with patient and nursing
Elana Crocker MD, [facility], [facility]
[id number]
Addendum entered and electronically signed by Onelia Lamb PA-C 03/31/25 16:36:
lactic acid elevated at 2.2. awaiting brain MRI. not felt to be safe to proceed with cath at this time with neurologic work up pending. will start milrinone @0.2 for presumed low flow state and follow. will check serial lactic acid levels and BMPs.
trop continues to trend up as well, 1.7. for possible cath in AM pending results of brain MRI and clinical progress overnight.
Original Note:
Update Note
Progress Note Update
noted that patient with complaints of new diplopia, neurology was consulted and ordered brain MRI. of note, BS 370. awaiting bloodwork including BMP and lactic acid, as also with concern for cardiogenic shock with tachycardia, low EF. awaiting
results. currently still NPO, for possible cath later today vs in AM. d/w nursing.
--- NOTE | 2025-03-31 16:18 | CM ---
Spoke with patient in room. Patient is previously independent, lives alone in 1 story home with 1 step to enter in the front of the home, and she has a ramp in the back of the home. Denies DME or DC needs. Plan is to discharge to home when medically
cleared.
[2025-03-31 16:22] LABS: Troponin I 1.700 ng/ml
[2025-03-31 16:45] LABS: Blood Urea Nitrogen 44 mg/dl (7-17); Calcium 9.5 mg/dl (8.4-10.2); Carbon Dioxide 21 mmol/L (22-30); Chloride 101 mmol/L (98-107); Estimated Creatinine Clearance 31 ml/min; Glucose 246 mg/dl (70-99); Potassium 4.5 mmol/L (3.5-5.1); Sodium 133 mmol/L (135-145); eGFR 45.19
[2025-03-31] MEDS: LASIX IV (17:00)
--- NOTE | 2025-03-31 17:01 | PTCARENOTE ---
Labs sent, creat now at 1.2. Spoke with nathalie Carson to hold 1600 IV lasix. Sending the patient to MRI now and will start milrinone gtt as ordered.
[2025-03-31] MEDS: PRIMACOR 20 MG 100 IV (18:39)
[2025-03-31 18:45] LABS: APTT 45.2 Sec (23.4-35.0)
[2025-03-31 18:56] LABS: Glucose - Point of Care 220 mg/dl (70-99)
[2025-03-31] MEDS: NOVOLOG FLEXPEN-LOW RESISTANCE 2 UNITS SC (18:56)
[2025-03-31 21:49] LABS: Troponin I 1.830 ng/ml
[2025-03-31 22:04] LABS: Blood Urea Nitrogen 53 mg/dl (7-17); Calcium 9.4 mg/dl (8.4-10.2); Carbon Dioxide 21 mmol/L (22-30); Chloride 101 mmol/L (98-107); Estimated Creatinine Clearance 27 ml/min; Glucose 269 mg/dl (70-99); Potassium 4.7 mmol/L (3.5-5.1); Sodium 130 mmol/L (135-145); eGFR 37.56
[2025-03-31 22:21] LABS: Glucose - Point of Care 255 mg/dl (70-99)
[2025-03-31] MEDS: APRESOLINE 10 MG PO (23:22)
[2025-03-31] MEDS: HEPARIN 25000 UNITS/250 ML IV (23:26)
[2025-04-01] VITALS (28 sets, daily range): BP systolic 86–138; BP diastolic 45–99; PULSE 89–97; BMI 30.4
[2025-04-01 01:22] LABS: APTT 146.7 Sec (23.4-35.0)
[2025-04-01 03:24] LABS: Hematocrit 32.3 % (37.0-47.0); Hemoglobin 10.9 g/dL (12.0-16.0); Mean Corp Hgb Conc. 33.7 g/dL (33.0-37.0); Mean Corpuscular Volume 87.1 fL (81.0-99.0); Platelet Count 219 10^3/uL (130-400); Red Cell Dist. Width 13.3 % (11.5-14.5)
[2025-04-01 03:46] LABS: Blood Urea Nitrogen 57 mg/dl (7-17); Blood Urea Nitrogen 58 mg/dl (7-17); Calcium 9.1 mg/dl (8.4-10.2); Calcium 9.2 mg/dl (8.4-10.2); Carbon Dioxide 21 mmol/L (22-30); Chloride 103 mmol/L (98-107); Estimated Creatinine Clearance 25 ml/min; Glucose 177 mg/dl (70-99); Glucose 178 mg/dl (70-99); Potassium 4.4 mmol/L (3.5-5.1); Potassium 4.5 mmol/L (3.5-5.1); Sodium 132 mmol/L (135-145); Sodium 133 mmol/L (135-145); eGFR 34.58
[2025-04-01 04:02] LABS: Troponin I 1.490 ng/ml
--- NOTE | 2025-04-01 04:04 | W.PN.UPDATE ---
Update Note
Progress Note Update
Asked to see patient for tachycardia, HR 140's sustained. Per RN, patient did have some short episodes of tachycardia in the beginning of the shift but they self resolved quickle. Evaluated patient, she denies any palpitations, chest discomfort,
SOB, dizziness, or headache. BP 127/73, HR 125. Febrile 97.9, pulsox 96% on 3L NC.
TT to Dr. Miranda, sent EKG, notes from Cardiology today. Orders placed per her recommendations. Metoprolol 2.5 mg IV x 1 now and Metoprolol 2.5 mg IV Q4H PRN for HR > 110.
[2025-04-01] MEDS: LOPRESSOR 2.5 MG IV (04:12)
--- NOTE | 2025-04-01 06:08 | PTCARENOTE ---
Assumed care on pt at 1900, OOB to chair visiting with family. aaox3 with some forgetfulness, used call light appropriately, denied dizziness, double vision, CP or SOB. Milrinone gtt infusing at 4.2ml/hr, heparin infusing at 11.5 ml/hr, bp stable.
SR/ST on tele monitor. Lactic down to 1.6. Neuro checks WNL.
Around 0300, pt HR sustaining on high 140's with the highest 159, asymptomatic. 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 Call lopez within reach, POC ongoing.
--- NOTE | 2025-04-01 09:00 | W.PN.HOSP.TC ---
Today's Communication/Plan
-
See plan
Assessment / Plan
Assessment / Plan
Physical exam:
General: Acutely ill
HEENT: Normocephalic, Atraumatic and Moist Mucous Membranes
Respiratory: Coarse crackles in the bases; Negative Wheezes, Rales or Rhonchi
Cardiac: Regular Rhythm and S1/S2
GI: Soft, Nontender and Nondistended
Musculoskeletal: No Clubbing, No Cyanosis and No Edema
Neuro: Awake, Alert and Oriented, no neurological deficits but generalized weakness
Psych: Calm
A/P:
Acute HFrEF:
Diuretics on hold due to cardiogenic shock and further diagnostic evaluation today
GDMT when able
Echocardiogram shows EF of 22% (it was 35% prior) and other multiple abnormalities.
Elevated troponin:
Type I versus type II myocardial infarction--> likely acute NSTEMI
On heparin drip, aspirin beta-blockers and statins
Plan for left heart cath and right heart cath today
Cardiogenic shock:
On milrinone drip
On hydralazine for afterload reduction
Paroxysmal A-fib:
On heparin
On amiodarone
JOON:
Avoid nephrotoxic
Monitor renal function closely
Sudden onset of dizziness and double vision on 03/31:
Neurology evaluated the patient and MRI of the brain no acute ischemic finding
Hyponatremia:
Continue to monitor closely
Anemia:
Continue to monitor closely
Leukocytosis:
Reactive versus infection-likely the former
Continue to trend
Hypertension:
Continue home antihypertensive
Hyperlipidemia:
Continue home statin
Diabetes mellitus type 2:
Continue long-acting insulin with Lantus
Continue insulin sliding scale
Peripheral vascular disease:
Continue heparin drip and statin
DVT prophylaxis:
Heparin drip
CODE STATUS:
Full code. Prognosis guarded
Total Critical Care Time__45___ minutes. I was immediately available to the patient and staff. I personally examined, reviewed labs, diagnostic images/reports, interpretations, treatment plans, discussed patient care with other providers and
family or caregivers (if patient is unable to make decisions), entered orders as appropriate and documented the medical record.
Anticipated Discharge: > 48 hours
Subjective/Interval History
-
Date of Service: April 01, 2025
Patient still short of breath. Not much of chest pain. Afebrile
Objective Data
-
Labs:
Laboratory Results
03/31/25 04/01/25 04/01/25
21:14 01:03 03:08
WBC 11.3 H
Hgb 10.9 L
Hct 32.3 L
Plt Count 219
APTT 146.7 H
Sodium 130 L 133 L
Potassium 4.7
Chloride 101
Carbon Dioxide 21 L
BUN 53 H
Creatinine 1.4 H
Glucose 269 H
Calcium 9.4
04/01/25 04/01/25 04/01/25
03:08 03:08 03:08
WBC
Hgb
Hct
Plt Count
APTT
Sodium 132 L
Potassium 4.4 4.5
Chloride 103 103
Carbon Dioxide 21 L
BUN
Creatinine
Glucose
Calcium
04/01/25 04/01/25 04/01/25
03:08 03:08 03:08
WBC
Hgb
Hct
Plt Count
APTT
Sodium
Potassium
Chloride
Carbon Dioxide 21 L
BUN 57 H 58 H
Creatinine 1.5 H 1.5 H
Glucose 178 H
Calcium
04/01/25 04/01/25 04/01/25
03:08 03:08 08:59
WBC
Hgb
Hct
Plt Count
APTT Pending
Sodium Pending
Potassium Pending
Chloride Pending
Carbon Dioxide Pending
BUN Pending
Creatinine Pending
Glucose 177 H Pending
Calcium 9.1 9.2 Pending
Vital Signs:
Vital Signs
Temp Pulse Resp BP Pulse Ox
98.3 F 83 20 114/64 96
04/01/25 07:39 04/01/25 08:20 04/01/25 07:39 04/01/25 07:25 04/01/25 07:39
I&O
03/31/25 04/01/25 04/02/25
06:59 06:59 06:59
Intake Total 150 / 150 1240 / 1240
Output Total 600 / 600
Balance 150 / 150 640 / 640
--- NOTE | 2025-04-01 09:02 | W.PN.NEURO.1 ---
Today's Communication / Plan
-
Await acetylcholine receptor antibodies
Check MRI of brain
Continue both heparin and aspirin
Would not at this time initiate pyridostigmine or high-dose steroids
Neuro Assessment/Plan
Assessment
Abrupt onset of ptosis in a patient with prior episodes of ptosis and prior history of right pontine ischemic stroke.
Unclear if the patient's ptosis is related to her prior stroke although the fact that she is experiencing ptosis contralaterally suggests against this possibility. Differential diagnosis includes myasthenia gravis
Plan
Await acetylcholine receptor antibodies
Check MRI of brain
Continue both heparin and aspirin
Would not at this time initiate pyridostigmine or high-dose steroids
Will follow as outpatient
Subjective/Objective
Subjective Data
Date of Service: April 01, 2025
Patient reports no recurrence of diplopia.
Objective Data
Vital Signs
Temp Pulse Resp BP Pulse Ox
36.8 C 83 20 114/64 96
04/01/25 07:39 04/01/25 08:20 04/01/25 07:39 04/01/25 07:25 04/01/25 07:39
Lab Results
04/01/25 03:08
PT 16.0 Sec (11.4-14.6) H 03/30/25 13:46
INR 1.26 03/30/25 13:46
APTT 146.7 Sec (23.4-35.0) H 04/01/25 01:03
Sodium 132 mmol/L (135-145) L 04/01/25 03:08
Sodium 133 mmol/L (135-145) L 04/01/25 03:08
Potassium 4.4 mmol/L (3.5-5.1) 04/01/25 03:08
Potassium 4.5 mmol/L (3.5-5.1) 04/01/25 03:08
BUN 57 mg/dl (7-17) H 04/01/25 03:08
BUN 58 mg/dl (7-17) H 04/01/25 03:08
Glucose 177 mg/dl (70-99) H 04/01/25 03:08
Glucose 178 mg/dl (70-99) H 04/01/25 03:08
Calcium 9.1 mg/dl (8.4-10.2) 04/01/25 03:08
Calcium 9.2 mg/dl (8.4-10.2) 04/01/25 03:08
Cwf-N-Glmqhhgjwpm Pept 59892 pg/ml 03/30/25 13:46
LDL Cholesterol, Calc 35 mg/dl 03/31/25 03:09
Patient Allergies
No Known Allergies Allergy (Verified 03/30/25 13:29)
Review of Systems
-
History Source: Patient
All other systems: Reviewed and negative
Physical Exam
-
General: No Apparent Distress and Appears Stated Age
Eyes: Round OU, [place] Conjunctivae and No Ptosis
HEENT: Anicteric and Moist Mucous Membranes
Neck: Full Range of Motion
Respiratory: No Dyspnea
Cardiac: No JVD
GI: Non-distended
Skin: Unremarkable
Extremities: No Clubbing, No Cyanosis and No Edema
Psych: Negative Intact Judgement/Insight
Extended Neurological Exam
Mood & Affect: Mood Unremarkable and Affect Unremarkable
Attention Span & Concentration: Awake, Alert and Interactive
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
Tremor: Hand Tremor Absent and Head Tremor Absent
Speech: Quality Unremarkable and Quantity Unremarkable
Cranial Nerve II: Left Eye: Pupillary Size Unremarkable and Visual Hassan Grossly Intact
Cranial Nerve II: Right Eye: Pupillary Size Unremarkable and Visual Hassan Grossly Intact
Cranial Nerves III, IV, : Extraocular Movement: Ptosis on Left (Touches iris), Ptosis on Right (Touches pupil) and Grossly Intact
Cranial Nerve VII: Facial Symmetry: Normal Facial Symmetry
Cranial Nerve VIII: Hearing: Unremarkable Hearing to Normal Conversational Volume
Cranial Nerve XI: Shoulder Shrug: Unremarkable
Muscle Strength, Overall: Full in Upper Extremities
Muscle Bulk & Tone: Bulk Unremarkable and Tone Unremarkable
Touch Sensation: Unremarkable
Coordination: Reaches for Objects without Difficulty
Data Reviewed
-
Labs: Report Reviewed
Reviewed with: Nurse Practioner and Patient
Old Records: Summarized
Past History
Past History
ED Past Medical History: CVA, HTN, Hypercholesterolemia, NIDDM and Other (ptosis)
Medications
-
Medications:
Generic Name Dose Route Start Last Admin
Trade Name Freq PRN Reason Stop Dose Admin
Albuterol/Ipratropium 3 ml 03/31/25 00:16 03/31/25 00:29
Ipratropium 0.5/Albuterol 3 Mg (3 Ml Ampul) INH 3 ml
R Q4HPRN PRN Administration
sob/wheezing
Protocol
Amiodarone HCl 400 mg 03/30/25 20:00 03/31/25 21:30
Amiodarone 200 Mg Tablet PO 04/27/25 19:59 400 mg
BID BRENT Administration
Aspirin 81 mg 03/31/25 08:00 03/31/25 08:32
Aspirin 81 Mg Chewable Tablet PO 04/28/25 07:59 81 mg
DAILY BRENT Administration
Bisacodyl 10 mg 03/30/25 19:37
Bisacodyl 10 Mg Rectal Suppository RECTAL 04/27/25 19:36
[id number] PRN
constipation
Dextrose 12.5 grams 03/30/25 19:37
Dextrose 50% (0.5 Grams/Ml) 50 Ml Syringe IV 04/27/25 19:36
[id number] PRN
hypoglycemia
Protocol
Furosemide 40 mg 03/31/25 08:00 03/31/25 17:00
Furosemide 40 Mg (10 Mg/Ml) 4 Ml Vial IV 04/28/25 07:59 Not Given
BID@0800,1600 BRENT
Glucagon 1 mg 03/30/25 19:37
Glucagon 1 Mg Vial IM 04/27/25 19:36
PRN PRN
hypoglycemia
Protocol
Hydralazine HCl 10 mg 03/31/25 22:00 03/31/25 23:22
Hydralazine 10 Mg Tablet PO 04/28/25 21:59 10 mg
TID BRENT Administration
Heparin Sodium 25,000 units in 250 mls @ 0 mls/hr 03/30/25 19:37 03/31/25 23:26
Heparin 23920 Units/250 Ml IV 250 mls
PER PROTOCOL BRENT Administration
Protocol
Per Protocol
Insulin Glargine 13 units/ 0.13 mls @ 0 mls/hr 03/31/25 08:00 03/31/25 09:14
Device SC 04/28/25 07:59 0.13 mls
DAILY BRENT Administration
As Directed
Milrinone Lactate/Dextrose 20 mg in 100 mls @ 0 mls/hr 03/31/25 16:45 03/31/25 18:39
Primacor 20 Mg IV 100 mls
PER PROTOCOL BRENT Administration
Protocol
Per Protocol
Insulin Aspart 0 units 03/30/25 19:37 03/31/25 18:56
Insulin Aspart Low Resistance 300 Units/3 Ml Pen.Injctr SC 04/27/25 19:36 2 units
AC BRENT Administration
Protocol
Metoprolol Tartrate 2.5 mg 04/01/25 08:00
Metoprolol 5 Mg/5 Ml Vial IV 04/29/25 07:59
Q4HPRN PRN
HR > 110
Miconazole Nitrate 0 applic 04/01/25 08:00
Miconazole Powder Bottle TOPICAL 04/29/25 07:59
BID BRENT
Polyethylene Glycol 17 grams 03/30/25 19:37
Polyethylene Glycol Powder 17 Grams Packet PO 04/27/25 19:36
DAILYPRN PRN
constipation
Rosuvastatin Calcium 20 mg 03/31/25 08:00 03/31/25 08:31
Rosuvastatin (Crestor) 20 Mg Tablet PO 04/28/25 07:59 20 mg
DAILY BRENT Administration
Senna/Docusate Sodium 1 tablet 03/30/25 19:37
Docusate W/Senna (Alba-Colace) Tablet PO 04/27/25 19:36
BIDPRN PRN
constipation
Sodium Chloride 0 flush 03/30/25 20:00 03/31/25 08:33
Sodium Chloride 0.9% (Flush) Syringe IV 04/27/25 19:59 2 flush
PER PROTOCOL BRENT Administration
[2025-04-01 09:22] LABS: APTT 103.4 Sec (23.4-35.0)
[2025-04-01 09:35] LABS: Blood Urea Nitrogen 61 mg/dl (7-17); Calcium 8.9 mg/dl (8.4-10.2); Carbon Dioxide 22 mmol/L (22-30); Chloride 103 mmol/L (98-107); Estimated Creatinine Clearance 25 ml/min; Glucose 260 mg/dl (70-99); Potassium 4.6 mmol/L (3.5-5.1); Sodium 130 mmol/L (135-145); eGFR 34.58
[2025-04-01] MEDS: CRESTOR 20 MG PO (09:40)
[2025-04-01] MEDS: LOW STRENGTH ASPIRIN 81 MG PO (09:40)
[2025-04-01] MEDS: PACERONE 400 MG PO ×2 (09:41→20:37)
[2025-04-01] MEDS: NOVOLOG FLEXPEN-LOW RESISTANCE 2 UNITS SC (09:47)
[2025-04-01] MEDS: DESENEX/MITRAZOL/ZEASORB 1 APPLIC TOPICAL ×2 (09:48→22:16)
[2025-04-01] MEDS: LANTUS 0.13 UNITS SC (09:48)
[2025-04-01 09:51] LABS: Glucose - Point of Care 235 mg/dl (70-99)
[2025-04-01] MEDS: LASIX IV (09:51)
[2025-04-01] MEDS: APRESOLINE 10 MG PO ×3 (09:51→22:16)
--- NOTE | 2025-04-01 10:39 | W.PN.CARDCBS ---
Today's Communication / Plan
-
Concern for cardiogenic shock
Continue milrinone
Plan for right heart cath today +/- left heart cath
Suspect needs diuresis, follow creatinine
Continue aspirin, IV heparin, Coreg, Crestor
With brief episode of A-fib overnight, continue Amio
Impression / Plan
-
Please see office note dated 03/30/25 to serve as H&P
Primary Onshore Diver: Dr. ALEX Fields
Assessment:
Presentation with SOB, palpitations
Acute HFrEF
Atrial tachycardia vs atypical atrial flutter with RVR, new diagnosis of unclear duration, suspected paroxysmal
Elevated troponin
Cardiomyopathy, EF 35% by echo 02/2025
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
History of CVA 2023
Mod MR
DM2
HTN
HLD
PAD with prior occluded R SFA
ECHO 04/17/24: EF 55%, aortic sclerosis, mild to moderate MR
ECHO 03/05/25: EF 35%, septal dyskinesis consistent with bundle branch block, mild LVH with moderate to severe basal septal hypertrophy, grade 1 diastolic dysfunction, moderate MR, trace TR
Echo 03/31/2025: EF 22%, bilateral pleural effusions noted, MR worsened from moderate to severe, global hypokinesis with inferolateral, mid anteroseptal, anterior, lateral, apical akinesis, no sign of LV clot, mild to moderate LVH with septum
measuring 1.5 cm, mild TR, PAP 45 mmHg
Plan:
- She was seen in office 03/30 as a new patient and sent to ER as complained of shortness of breath, with heart rate in the 130s and echo from 03/05/2025 showing new EF of 35%
- Troponin peaked at 1.7. No chest pain
- Repeat echo this admission with EF 22% and MR worsened from moderate to severe with bilateral pleural effusions noted
- proBNP 13,000, however has not diuresed well thus far. significant concern for her being in cardiogenic shock given low EF, elevated lactic acid, tachycardia. She was started on milrinone 0.2 overnight, continue for now
- She also had complaints of diplopia yesterday and underwent neurologic evaluation including brain MRI which was negative for acute abnormality. Okay from neuro standpoint to proceed with catheterization
- Creatinine stable at 1.5 for last 3 BMP checks, however definitely worse than her baseline
- Discussed with interventional cardiology. Will at very least plan for right heart cath today, based on those numbers can determine whether left heart cath will also occur today or would need to be deferred given risk for COLETTE. Procedure reviewed
with patient 04/01. N.p.o.
- Holding Lasix for now given JOON until right heart cath completed, however suspect she is grossly volume overloaded. Outpatient metformin and lisinopril are also on hold
- She was noted to have approximately 1 hour of atrial fibrillation on review of telemetry overnight, presently maintaining sinus rhythm. Started on amiodarone this admission, continue
- Continue aspirin, IV heparin
- Continue Coreg
- LDL 35. Continue Crestor.
- TSH WNL
- discussed with nursing. Discussed with hospitalist and neurology via [place] text
Progress Note - Onshore Diver
Subjective
Date of Service: April 01, 2025
Denies chest pain, shortness of breath
Objective
Labs:
04/01/25 03:08
04/01/25 08:59
Labs
Hgb 10.9 g/dL (12.0-16.0) L 04/01/25 03:08
Hct 32.3 % (37.0-47.0) L 04/01/25 03:08
Plt Count 219 10^3/uL (130-400) 04/01/25 03:08
PT 16.0 Sec (11.4-14.6) H 03/30/25 13:46
INR 1.26 03/30/25 13:46
APTT 103.4 Sec (23.4-35.0) H 04/01/25 08:59
Sodium 130 mmol/L (135-145) L 04/01/25 08:59
Potassium 4.6 mmol/L (3.5-5.1) 04/01/25 08:59
BUN 61 mg/dl (7-17) H 04/01/25 08:59
Creatinine 1.5 mg/dL (0.6-1.0) H 04/01/25 08:59
Glucose 260 mg/dl (70-99) H 04/01/25 08:59
Troponins
03/30/25 03/30/25 03/31/25
13:46 20:06 01:02
Troponin I 0.462 H* 0.593 H* D 0.822 H* D
03/31/25 03/31/25 03/31/25
09:29 15:38 21:14
Troponin I 1.550 H* 1.700 H* 1.830 H*
04/01/25
02:57
Troponin I 1.490 H*
Vital Signs and I&O:
Vital Signs
Temp Pulse Resp BP Pulse Ox
98.3 F 87 20 120/68 96
04/01/25 07:39 04/01/25 09:51 04/01/25 07:39 04/01/25 09:51 04/01/25 07:39
Vital Signs
Temp Pulse Resp BP Pulse Ox
98.3 F 87 20 120/68 96
04/01/25 07:39 04/01/25 09:51 04/01/25 07:39 04/01/25 09:51 04/01/25 07:39
Intake & Output
03/30/25 03/31/25 04/01/25 04/02/25
07:59 07:59 07:59 07:59
Intake Total 150 / 510 1240 / 1240
Output Total 600 / 600
Balance 150 / 510 640 / 640
Physical Exam
Physical Exam
GEN: No distress, awake, alert, oriented x3. On supplemental O2
HEENT: supple, anicteric, mmm, EOMI
LUNGS: Decreased BS B/L, no wheezes
CV: Reg, S1/S2, 2/6 murmur
ABD: soft, BS+, NT/ND
EXT: No cyanosis, clubbing, edema
NEURO: Gross non-focal
SKIN: Warm, pink, dry. No rash
--- NOTE | 2025-04-01 11:14 | PTCARENOTE ---
Patient NPO, IV heparin infusing at 950 units/hr, IV milrinone infusing at 0.2mcg/kg/min. AM lasix held as per Carol WEINSTEIN due to rise of creatinine to 1.5. Spoke with Dr. Ayala re: lantus insulin with NPO status, ok to given ordered dose of 13
units, accu check 235. Patient seen by Dr. Cohen and taken to the laboratory associate. Sister waiting in the room.
--- NOTE | 2025-04-01 12:59 | CONSULT.CT ---
Consultation
-
Date/Time Consultation Requested: 04/01/25
Date/Time Consultation Performed: 04/01/25
Requesting Provider: Noel
Performing Provider: Manda Cano PA-C for Dr. Patrick Rick
Reason for Consultation: CABG eval +/- mitral repair
Patient History
Physicians
Family Physician: Karla Tran
Outpatient Physician Scientist: Cory abrams
Inpatient Physician Scientist: RITA/Noel
History of Present Illness
Pt is an 84y/oF with complaints of 2 weeks of feeling intermittently fatigued and short of breath with normal ADLs that had not been previously difficult for her. She had an outpatient appt with cardiology on 03/30 who sent her to the ED for full
eval, but office EKG demonstrated possible a flutter with 2 to 1 conduction. Upon admit echo demonstrated further reduced EF from prior study now at 22% with severe MR. CXR with pulm edema, proBNP 13,000. She was started on IV diuresis, cardizem and
heparin. Empiric milrinone was started yesterday for inotropic support. Pt underwent R & LHC today which demonstrated multivessel CAD. CTS asked to evaluate for CABG +/- MVr.
Past Medical History
Past Medical History: Other
Hypertension
Hyperlipidemia
acute HF with reduced EF, now 22% on TTE
insulin dependent diabetes mellitus
hx CVA 03/2024
PAD with known occluded R SFA
new Dx afib with RVR vs A flutter
RBBB with LAFB
JOON
severe MR on TTE this admission
Past Surgical History
Past Surgical History: Other
hysterectomy at age 62
parathyroidectomy
Social History
Alcohol: None
Drug: None
Tobacco: Non-Smoker
Personal: Single
Living: Alone (independent with ADLS, but 'not very active')
Allergies
Allergy/AdvReac Type Severity Reaction Status Date / Time
No Known Allergies Allergy Verified 03/30/25 13:29
Home Medications
�Medication �Instructions �Recorded �Confirmed �Type
lisinopril 2.5 mg tablet 2.5 mg PO DAILY Heart 03/29/24 03/30/25 History
Disease/Condition
aspirin 81 mg chewable tablet 81 mg PO DAILY #0 tabs 04/01/24 03/30/25 Rx
metformin 1,000 mg tablet 1,000 mg PO BID@0800,1700 #60 tabs 04/01/24 03/30/25 Rx
glipizide 5 mg tablet 2.5 mg PO DAILY Diabetes 03/30/25 03/30/25 History
insulin glargine 100 unit/mL (3 13 unit SC DAILY Diabetes 03/30/25 03/30/25 History
mL) subcutaneous pen (Lantus
Solostar U-100 Insulin)
rosuvastatin 20 mg tablet 20 mg PO DAILY High Cholesterol 03/30/25 03/30/25 History
Review of Systems
-
History Source: Patient
General: Reports Fatigue
HEENT: Reports No Symptoms
Respiratory: Reports SOB and SANTANA (while walking to the mailbox)
Cardiac: Reports Edema; Denies Chest Pain or Palpitations
Abdomen/GI: Reports No Symptoms
: Reports No Symptoms
Skin: Reports No Symptoms
Neurological: Reports Weakness
Vascular: Reports No Symptoms
Physical Exam
Vital Signs
Temp 98.3 F 04/01/25 07:39
Temp route: Oral 04/01/25 07:39
Pulse 87 04/01/25 09:51
Rhythm: Normal sinus rhythm 04/01/25 08:00
With- Bundle Branch Block Confi 04/01/25 08:00
Resp Rate 20 04/01/25 07:39
Blood pressure 120/68 04/01/25 09:51
Blood pressure extremity used: Right upper arm 04/01/25 07:39
Position: Lying 04/01/25 07:39
MAP (cuff-Atul Monitor) 82 04/01/25 07:25
SaO2 96 04/01/25 08:00
Nasal Cannula flow liters per minute 3 04/01/25 08:00
Oxygen Mode of Delivery Room air 03/30/25 14:23
Can the patient verbally communicate their pain? Yes 03/31/25 20:30
Actual Weight 70.5 kg 04/01/25 04:15
Body Mass Index (BMI) 30.4 04/01/25 04:15
Labs
04/01/25 03:08
04/01/25 08:59
PT 16.0 Sec (11.4-14.6) H 03/30/25 13:46
APTT Cancelled 04/01/25 15:00
Hemoglobin A1c 6.6 % (4.0-5.9) H 03/31/25 03:09
Troponin I 1.490 ng/ml H* 04/01/25 02:57
Qiy-Y-Hlhgfvyfrtr Pept 48799 pg/ml 03/30/25 13:46
Arterial Blood Gases
pH 7.40 (7.35-7.45) 03/31/25 00:27
pCO2 30 mmHg (32-35) L 03/31/25 00:27
pO2 83 mmHg (83-108) 03/31/25 00:27
HCO3 18.6 mmol/L (21-28) L 03/31/25 00:27
Base Excess -5.2 mmol/L 03/31/25 00:27
ABG O2 Sat (Measured) 96.7 % (94-98) 03/31/25 00:27
O2 Delivery Level 03/31/25 00:27
Exam
General: Well Developed, Well Nourished and No Apparent Distress
HEENT: Normocephalic, Anicteric and Moist Mucous Membranes
Respiratory: Clear; Negative Wheezes or Crackles
Cardiac: Regular Rhythm and Murmur (3/6 systolic ejection murmur )
GI: Soft, Non Tender and Non Distended
Rectal: Deferred by Provider
Skin: Warm and Dry
Neuro: Nonfocal/Grossly Intact
Extremities: Lower Level Edema (trace b/l)
Psych: Calm
Assessment / Plan
-
acute HF with severely reduced EF
multivessel CAD
severe MR
Pt seen and discussed treatment options for coronary disease including CABG, PCI, medical therapy. Pt not interested in open heart surgery as she 'is too old', but additionally she is in an extremely high risk category for an operation as noted
below. Pt comfortable with plan to discuss PCI vs medical therapy with her russian history professor. Full eval by attending to follow.
Procedure Type:�CABG + MVr
Perioperative Outcome Estimate %
Operative Mortality 41.6%
Morbidity & Mortality 84.5%
Stroke 11.5%
Renal Failure 43.7%
Reoperation 12.9%
Prolonged Ventilation 80.6%
Deep Sternal Wound Infection 1.44%
Long Hospital Stay (>14 days) 78.8%
Short Hospital Stay (<6 days)* 0.278%
Clinical Summary
Planned Surgery: CABG + MVr, Urgent, First cardiovascular surgery
Demographics: 84 year old, female, 70.5kg, 152cm, BMI: 30.5 kg/m�
Lab Values: Creatinine: 1.5 mg/dL, Hematocrit: 32.3%, WBC Count: 11.3 10�/�L, Platelet Count: 257912 cells/�L
PreOp Medications: Inotropes <=48 hrs, Insulin diabetes control
Substance Abuse: Never smoker
Risk Factors / Comorbidities: Insulin-dependent Diabetes Mellitus, Hypertension
Vascular RF: Cerebrovascular Disease: CVA > 30 days, Peripheral Artery Disease
Cardiac Status: Acute and chronic heart failure, NYHA Class II, Cardiogenic Shock, Ejection Fraction = 22%
Coronary Artery Disease: 3 vessels diseased, Non-ST Elevation DE, DE: 1 to 7 Days
Valve Disease: Severe MR, Mild TR
Arrhythmia: Recent A-fib, Paroxysmal, Recent Atrial Flutter
Data Reviewed
-
EKG: Report Reviewed by me
Slip Maker: Image Personally Visualized and interpreted and Discussed with Physician
Echo: Report Reviewed by me
Radiology: Report Reviewed by me
MRI: Report Reviewed by me
Labs: Labs Reviewed by me and Discussed with Physician
[2025-04-01] MEDS: PRIMACOR 20 MG 100 IV (13:23)
--- NOTE | 2025-04-01 13:45 | ITS.CL.CATH ---
Applied Marine Physics Professor - Catheterization
Cardiac Catheterization
Procedure Report:
RIGHT AND LEFT HEART STUDY
Date of Procedure: April 01, 2025
Referring: Dr. Santiago Fields
PROCEDURES:
1. Right heart catheterization
2. Left heart catheterization with coronary angiography
INDICATION: This is an 84-year-old diabetic female who presented to [facility] with a several day history of increased shortness of breath with heart rate in the 130s secondary to atrial tachycardia or atypical atrial flutter with rapid
ventricular response. She noticed exertional intolerance but denied any chest discomfort. Her troponin was mildly elevated peaking at 1.83 0 g/mL but trending lower. She denied any chest discomfort. An echocardiogram was performed. She is now
referred for coronary angiography.
-03/31/2025: Echo: LV: assessed with Lumason intravenous contrast to improve endocardial definition. The EF was 22% by Mitchell's method of test. Stage II diastolic dysfunction. RV: Moderately reduced systolic function, LA: Mildly dilated, RA:
Normal, AV: No AI with moderate leaflet thickening and no . MV: Severe mitral regurgitation with mild mitral annular calcification, TV: Mild TR with estimated PAP is 45 mmHg
- 03/05/2025: Echo: LV: Normal size with moderately reduced EF estimated at 35%. Global hypokinesis with septal dyskinesis consistent with LBBB. RV: Mildly dilated, LA: Normal, RA: Normal, AV: Thickened with mean gradient of 7 mmHg. No AI. MV:
Moderate MR, TV: Trace TR
-03/30/2024: Echo: LV: Normal size with mildly reduced systolic function and estimated ejection fraction of 56% by volumetric assessment. RV: Normal, LA: Normal, RA: Normal, AV: Sclerotic, MV: Mild to moderate MR, TV: Trace TR with estimated PAP
20-25 mmHg
ACCESS: Right radial artery, 6 Libyan sheath and right brachial vein, 5 Libyan sheath
HEMODYNAMICS : mmHg
RA (m) : 15
RV (s/d, m) : 52/11, 16
PA (s/d, m) : 49/24, 34
PCWP (m) : 28
AO (s/d, m) : 180/48, 86
LV (s/d) : 113/13
LVEDP : 28
Estimated [place] Cardiac Output: 3.4 L / min and Cardiac Index: 2.0 L/ min / m-2
Systemic vascular resistance: 20.9 Wood units or 1671 [id number](-5)
Pulmonary vascular resistance: 1.8 Wood units or 141 [id number](-5)
CORONARY FINDINGS :
Dominance: Right
LEFT MAIN: Normal
LEFT ANTERIOR DESCENDING: The LAD arises as a large caliber vessel and begins to taper to a medium-small caliber vessel beyond the first septal grading machine feeder. There is a long 50-70% stenosis in the mid LAD just beyond a small first diagonal branch
extending into the mid LAD beyond the second diagonal branch. The second diagonal branch is a small to medium caliber vessel that supplies a moderate to large territory. The mid LAD beyond the diagonal branch has diffuse luminal irregularities but
no focal obstructive stenosis..
CIRCUMFLEX: The circumflex is a medium caliber nondominant vessel with tandem 60 and 50% stenosis in its proximal and midportion. The circumflex supplies a single sizable obtuse marginal branch that has a 50% mid and focal 80% distal stenosis where
the vessel becomes very tortuous.
RIGHT CORONARY ARTERY: The right coronary artery has high anterior origin from the aorta. The proximal right coronary artery has a calcified 60-65% stenosis. The remainder of the RCA has only minor irregularities. The PDA has a 60% proximal
stenosis and the posterolateral branch has a focal 80% stenosis.
VENTRICULOGRAPHY: Not done due to elevated creatinine
SEDATION: 55 minutes of procedural sedation was utilized. An independent certified medical technician was present to assist with and help manage the patient's level of consciousness and physiologic status
RADIATION SUMMARY: Fluoro Time (min): 11.4, Dose (mGy): 556, DAP (Gy.cm2) : 32
CONCLUSIONS
1. Moderately elevated left ventricular filling pressures with LVEDP and pulmonary capillary wedge pressure measuring 28 mmHg. The cardiac output cardiac index measured 3.4 L/min and 2.0 L/min/m2 on milrinone 0.2 mcg/kg/min.
2. Diffuse vessel artery disease as described above.
3. Severe LV dysfunction with severe mitral regurgitation
RECOMMENDATIONS
1. Will consult CT surgery but I am doubtful she would be considered a good surgical candidate.
2. She is largely free of anginal symptoms. I would attempt titration of guideline directed medical therapy for underlying coronary disease and LV dysfunction. If she fails medical therapy could offer PCI of mid LAD. Stent would clearly span the
origin of the second diagonal (provisional treatment if needed) and possibly the first diagonal +/- stent of the proximal to mid circumflex and +/- hemodynamic assessment of the RCa
Copy to: Dr. Santiago Fields
--- NOTE | 2025-04-01 13:51 | PTCARENOTE ---
Received patient from the cath lab tech at 1300, patient in YANELIS upon admission back to floor, asymptomatic. Right radial band in place, right brachial dressing in place, no signs of bleeding or hematoma with a strong radial pulse palpable. Attempted to
obtain EKG in rapid rhythm, but converted back to SR. Dr. Cohen in to speak with the patient and her sister and notified. Monitoring VS, waiting for lunch, call lopez in reach.
[2025-04-01 13:59] LABS: Ferritin 92.3 ng/ml (11.1-264.0)
[2025-04-01 14:21] LABS: Glucose - Point of Care 173 mg/dl (70-99)
[2025-04-01] MEDS: NOVOLOG FLEXPEN-LOW RESISTANCE 1 UNITS SC ×2 (14:24→18:12)
[2025-04-01] MEDS: LASIX 40 MG IV (17:12)
[2025-04-01 17:43] LABS: Urine Character Slightly Cloudy (Clear)
[2025-04-01 17:48] LABS: Urine Squamous Cell 0-2 /LPF (Few)
[2025-04-01 17:49] LABS: Urine Red Blood Cell 0-2 /HPF (0-2); Urine White Cell 90-100 /HPF (0-5)
[2025-04-01 18:12] LABS: Glucose - Point of Care 193 mg/dl (70-99)
--- NOTE | 2025-04-01 18:28 | PTCARENOTE ---
Patient sitting oob in the chair eating dinner, IV heparin restarted as ordered.
--- NOTE | 2025-04-01 20:30 | PTCARENOTE ---
Received pt from day shift, NS with a Bundle on the monitor, VSS, heparin gtt infusing at 9.5ml/hr in the left f/a, milrinone infusing at 4.2ml/hr in the right f/a. Next PTT due at 00:15. Pt's right radial and right brachial sites are CDI, pt
reports SOB is minimal and is sating 97% on RA.
[2025-04-01 22:01] LABS: Glucose - Point of Care 251 mg/dl (70-99)
[2025-04-02] VITALS (8 sets, daily range): BP systolic 94–153; BP diastolic 58–87; BMI 30.4
[2025-04-02 00:43] LABS: APTT 81.3 Sec (23.4-35.0)
[2025-04-02] MEDS: LOPRESSOR 2.5 MG IV (05:06)
--- NOTE | 2025-04-02 05:22 | PTCARENOTE ---
At approximately 0500, pt's heart rate went A-fib RVR in the 140's and pt felt some palpitations and a little SOB. PRN IV Lopressor 2.5 given with rhythm going back into NS in the 70's.
[2025-04-02 06:47] LABS: Hematocrit 30.2 % (37.0-47.0); Hemoglobin 10.1 g/dL (12.0-16.0); Mean Corp Hgb Conc. 33.4 g/dL (33.0-37.0); Mean Corpuscular Volume 86.5 fL (81.0-99.0); Nucleated Red Blood Cells % 0 %; Platelet Count 251 10^3/uL (130-400); Red Cell Dist. Width 13.2 % (11.5-14.5)
[2025-04-02 06:56] LABS: APTT 68.1 Sec (23.4-35.0)
[2025-04-02 07:06] LABS: Blood Urea Nitrogen 62 mg/dl (7-17); Calcium 9.0 mg/dl (8.4-10.2); Carbon Dioxide 22 mmol/L (22-30); Chloride 104 mmol/L (98-107); Estimated Creatinine Clearance 22 ml/min; Glucose 261 mg/dl (70-99); Magnesium 2.1 mg/dl (1.6-2.3); Potassium 4.3 mmol/L (3.5-5.1); Sodium 132 mmol/L (135-145); eGFR 29.76
[2025-04-02] MEDS: NOVOLOG FLEXPEN-LOW RESISTANCE 3 UNITS SC (07:24)
[2025-04-02] MEDS: LOW STRENGTH ASPIRIN 81 MG PO (07:26)
[2025-04-02] MEDS: CRESTOR 20 MG PO (07:27)
[2025-04-02] MEDS: PACERONE 400 MG PO ×2 (07:28→19:42)
[2025-04-02] MEDS: LASIX IV ×2 (07:28→14:07)
[2025-04-02 07:29] LABS: Glucose - Point of Care 277 mg/dl (70-99)
[2025-04-02] MEDS: DESENEX/MITRAZOL/ZEASORB 1 APPLIC TOPICAL (07:29)
[2025-04-02] MEDS: APRESOLINE 10 MG PO ×3 (07:37→22:32)
[2025-04-02] MEDS: LANTUS 0.13 UNITS SC (07:41)
--- NOTE | 2025-04-02 10:29 | W.PN.CARDCBS ---
Addendum entered and electronically signed by Radha Hernandez DO 04/03/25 06:25:
I saw and examined the patient 04/02/25
The Checkman's note was reviewed and I agree with the note.
Comment: Late entry.Patient was seen and examined. Offers no new complaints
GEN: NAD.
HEENT: smmm
LUNGS: Decreased BS B/L with poor air movement, no wheezes
CV: Reg, S1/S2, 2/6 murmur
ABD: soft, BS+, NT/ND
EXT: No edema. warm distal extremities
Plan:
84-year-old female new patient to [facility] cardiology/Dr. Fields referred to the ER from the office with tachycardia and shortness of breath with acute HFrEF found to new cardiomyopathy with LV ejection fraction 22-35%, moderate to severe mitral
regurgitation, NSTEMI with multivessel coronary artery disease by left heart catheterization 04/01/2025 and PAT/PAF
Acute HFrEF, new diagnosis of severe LV systolic dysfunction with EF estimated less than 30% who presented in cardiogenic shock with elevated lactic acid placed on milrinone with right heart catheterization 04/01/2025 reporting cardiac index 2 on
milrinone 0.2mcg/kg/min with moderately elevated left ventricular filling pressures and a wedge pressure of 28 mmHg
-proBNP 13,000
- Continue IV Lasix
- Continue to monitor renal function as creatinine is up today status post catheterization/dye load
- Nephrology consult [outpatient lisinopril and metformin held]
- Add hydralazine today and if tolerates add Isordil
- Continue milrinone drip while optimizing volume status
Multivessel coronary artery disease with peak troponin 1.83
-Appreciate CT surgery consult, felt to be a poor surgical candidate
- Discussions underway regarding high risk LAD PCI
- Continue IV heparin
- Continue aspirin 81 mg daily, rosuvastatin 20 mg daily [LDL 35]
Rapid PAT/PAF, new diagnosis
- She is currently in sinus rhythm
- Amiodarone load with 400 mg twice daily monitoring telemetry/EKGs for QTc
- Currently on IV heparin awaiting decision regarding revascularization; eventual NOAC
- Eventual addition of carvedilol once off milrinone
- TSH within normal limits
Type 2 diabetes mellitus�management per hospitalist
Original Note:
Today's Communication / Plan
-
continue milrinone
nephrology evaluation
suspect needs additional diuresis
add hydralazine. GDMT of CM as able
continue amio load, IV heparin, asa
Impression / Plan
-
Please see office note dated 03/30/25 to serve as H&P
Primary Bootmaker Hand: Dr. ALEX Fields
Assessment:
Presentation with SOB, palpitations
Acute HFrEF
Paroxysmal atrial tachycardia/atrial fibrillation with RVR, new diagnosis of unclear duration, suspected paroxysmal
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
Cardiomyopathy, EF 35% by echo 02/2025
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
History of CVA 2023
Mod MR
DM2
HTN
HLD
PAD with prior occluded R SFA
ECHO 04/17/24: EF 55%, aortic sclerosis, mild to moderate MR
ECHO 03/05/25: EF 35%, septal dyskinesis consistent with bundle branch block, mild LVH with moderate to severe basal septal hypertrophy, grade 1 diastolic dysfunction, moderate MR, trace TR
Echo 03/31/2025: EF 22%, bilateral pleural effusions noted, MR worsened from moderate to severe, global hypokinesis with inferolateral, mid anteroseptal, anterior, lateral, apical akinesis, no sign of LV clot, mild to moderate LVH with septum
measuring 1.5 cm, mild TR, PAP 45 mmHg
Plan:
- She was seen in office 03/30 as a new patient and sent to ER as complained of shortness of breath, with heart rate in the 130s and echo from 03/05/2025 showing new EF of 35%
- complex from cardiac standpoint
- Troponin peaked at 1.7. No chest pain
- Repeat echo this admission with EF 22% and MR worsened from moderate to severe with bilateral pleural effusions noted
- proBNP 13,000, however did not diurese well on Lasix. significant concern for her being in cardiogenic shock given low EF, elevated lactic acid, tachycardia. She was started on milrinone 0.2 03/31, and cardiac index at time of cath on milrinone
was 2.
- Underwent cardiac catheterization 04/01/2025 with multivessel coronary disease involving LAD, circumflex, RCA. CT surgery consulted, but not felt to be a good surgical candidate. Could consider high risk LAD PCI if fails medical therapy, however
is largely asymptomatic without chest pain
- Wedge was 28. IV Lasix was resumed last evening. Creatinine up to 1.7 today. recommend nephrology evaluation, however may be combination of diuresis and contrast. Appears to still be wet on lung exam. Outpatient metformin and lisinopril are
also on hold
- has had both suspected atach as well as now PAF since admission. currently in SR on review of tele. continue amiodarone load with 400mg BID for now.
- Continue aspirin, IV heparin for now, eventual DOAC
- Holding coreg on milrinone. GDMT of CM as able. will attempt to add hydralazine today
- LDL 35. Continue Crestor.
- TSH WNL
- discussed with nursing, hospitalist, CT surg LAST [employer]ER. discussed with sister at bedside
Progress Note - Bootmaker Hand
Subjective
Date of Service: April 02, 2025
denies CP. reports remains with dry cough, unable to take deep breath
Objective
Labs:
04/02/25 06:25
04/02/25 06:25
Labs
Hgb 10.1 g/dL (12.0-16.0) L 04/02/25 06:25
Hct 30.2 % (37.0-47.0) L 04/02/25 06:25
Plt Count 251 10^3/uL (130-400) 04/02/25 06:25
PT 16.0 Sec (11.4-14.6) H 03/30/25 13:46
INR 1.26 03/30/25 13:46
APTT 68.1 Sec (23.4-35.0) H 04/02/25 06:25
Sodium 132 mmol/L (135-145) L 04/02/25 06:25
Potassium 4.3 mmol/L (3.5-5.1) 04/02/25 06:25
BUN 62 mg/dl (7-17) H 04/02/25 06:25
Creatinine 1.7 mg/dL (0.6-1.0) H 04/02/25 06:25
Glucose 261 mg/dl (70-99) H 04/02/25 06:25
Troponins
03/30/25 03/30/25 03/31/25
13:46 20:06 01:02
Troponin I 0.462 H* 0.593 H* D 0.822 H* D
03/31/25 03/31/25 03/31/25
09:29 15:38 21:14
Troponin I 1.550 H* 1.700 H* 1.830 H*
04/01/25
02:57
Troponin I 1.490 H*
Vital Signs and I&O:
Vital Signs
Temp Pulse Resp BP Pulse Ox
98.5 F 95 20 128/64 96
04/02/25 07:48 04/02/25 07:40 04/02/25 07:48 04/02/25 07:27 04/02/25 07:48
Vital Signs
Temp Pulse Resp BP Pulse Ox
98.5 F 95 20 128/64 96
04/02/25 07:48 04/02/25 07:40 04/02/25 07:48 04/02/25 07:27 04/02/25 07:48
Intake & Output
03/31/25 04/01/25 04/02/25 04/03/25
07:59 07:59 07:59 07:59
Intake Total 150 / 510 1240 / 1240 480 / 480
Output Total 600 / 600 975 / 975
Balance 150 / 510 640 / 640 -495 / -495
Physical Exam
Physical Exam
GEN: No distress, awake, alert, oriented x3.
HEENT: supple, anicteric, mmm, EOMI
LUNGS: Decreased BS B/L with poor air movement, no wheezes
CV: Reg, S1/S2, 2/6 murmur
ABD: soft, BS+, NT/ND
EXT: No cyanosis, clubbing, edema
NEURO: Gross non-focal
SKIN: Warm, pink, dry. No rash
[2025-04-02] MEDS: HEPARIN 25000 UNITS/250 ML IV (11:38)
--- NOTE | 2025-04-02 11:58 | W.PN.HOSP.TC ---
Today's Communication/Plan
-
See plan
Assessment / Plan
Assessment / Plan
Physical exam:
General: Acutely ill
HEENT: Normocephalic, Atraumatic and Moist Mucous Membranes
Respiratory: Coarse crackles in the bases; Negative Wheezes, Rales or Rhonchi
Cardiac: Regular Rhythm and S1/S2
GI: Soft, Nontender and Nondistended
Musculoskeletal: No Clubbing, No Cyanosis and No Edema
Neuro: Awake, Alert and Oriented, no neurological deficits but generalized weakness
Psych: Calm
A/P:
Acute HFrEF:
Started on IV Lasix 40 mg twice a day
GDMT when able
Echocardiogram shows EF of 22% (it was 35% prior) and other multiple abnormalities.
Discussed with family
Acute NSTEMI with multivessel CAD:
On heparin drip, aspirin and statins
Hold beta-blockers while on milrinone
Status post left heart cath and right heart cath on 04/01
Cardiogenic shock:
On milrinone drip
On hydralazine for afterload reduction
Discussed with cardiology.
Paroxysmal A-fib:
On heparin
Eventual DOAC
On amiodarone
JOON:
Avoid nephrotoxic
Monitor renal function closely
Nephrology consult-discussed with nephrology via [place] text
Sudden onset of dizziness and double vision on 03/31:
Neurology evaluated the patient and MRI of the brain no acute ischemic finding
Hyponatremia:
Continue to monitor closely
Anemia:
Continue to monitor closely
Leukocytosis:
Reactive versus infection-likely the former
Continue to trend
Hypertension:
Continue home antihypertensive
Hyperlipidemia:
Continue home statin
Diabetes mellitus type 2:
Continue long-acting insulin with Lantus
Continue insulin sliding scale
Peripheral vascular disease:
Continue heparin drip and statin
DVT prophylaxis:
Heparin drip
CODE STATUS:
Full code. Prognosis guarded
Discussed CODE STATUS again with patient and family and she reiterates her wishes of remaining full code
Total Critical Care Time__45___ minutes. I was immediately available to the patient and staff. I personally examined, reviewed labs, diagnostic images/reports, interpretations, treatment plans, discussed patient care with other providers and
family or caregivers (if patient is unable to make decisions), entered orders as appropriate and documented the medical record.
Anticipated Discharge: > 48 hours
Subjective/Interval History
-
Date of Service: April 02, 2025
Patient is still short of breath. No chest pain.
Objective Data
-
Labs:
Laboratory Results
04/02/25 04/02/25 04/02/25
00:21 06:25 13:29
WBC 8.4
Hgb 10.1 L
Hct 30.2 L
Plt Count 251
APTT 81.3 H 68.1 H Pending
Sodium 132 L
Potassium 4.3
Chloride 104
Carbon Dioxide 22
BUN 62 H
Creatinine 1.7 H
Glucose 261 H
Calcium 9.0
Vital Signs:
Vital Signs
Temp Pulse Resp BP Pulse Ox
98.5 F 95 20 128/64 96
04/02/25 07:48 04/02/25 07:40 04/02/25 07:48 04/02/25 07:27 04/02/25 07:48
I&O
04/01/25 04/02/25 04/03/25
06:59 06:59 06:59
Intake Total 1240 / 1240 480 / 480
Output Total 600 / 600 975 / 975
Balance 640 / 640 -495 / -495
--- NOTE | 2025-04-02 12:44 | W.CON.NEPH ---
Consultation
-
Date/Time Consultation Requested: 04/02/25 0818
Date/Time Consultation Performed: 04/02/25 1140
Requesting Provider: Kelvin Ortiz
Performing Provider: Vangie Polk
Reason for Consultation: JOON
Medical History
-
Chief Complaint: SOB
History of Present Illness:
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 She she was followed cardiology office for shortness of breath and some weight gain EKG noted A Flutter. Further W/u revealed
reduced EF 22% and severe MR. CXR Noted pulm edema. She started on IV lasix, cardizem and heaprin gtt. Milrinone started empirically and she underwent R. LHC on 04/01 showed PCWP of 28 and MVD. She was evaluated by CT surg and felt she is too risky
for CABG and now plan to have medical management+/-PCI. Her cr on admit was at 0.8 but it is steadily increasing to 1.7 today hence nephrology consulted for JOON. Offers no chest pain at rest. Shortness of breath isn't improving not at baseline yet.
She has no nausea or vomiting or dizziness. No abdominal pain. Has constipation. No dysuria or hematuria.
Past Medical History
Right pontine ischemic stroke 03/2024, cognitive impairment, DM2, mod MR, RBBB, osteoporosis, PVD, HLD, HTN, Endometrial cancer
Past Surgical History: Gynecological (hysterectomy) and Other (Hysterectomy (late ) Partial parathyroidectomy ANDRAE/BSO)
Social History
Tobacco: Non-Smoker
Alcohol: None
Personal: Single
Living: Alone
Employment: Retired
Family History
no ckd
Family History: Not Pertinent
Allergies / Home Medications
Allergy/AdvReac Type Severity Reaction Status Date / Time
No Known Allergies Allergy Verified 03/30/25 13:29
�Medication �Instructions �Recorded �Confirmed �Type
lisinopril 2.5 mg tablet 2.5 mg PO DAILY Heart 03/29/24 03/30/25 History
Disease/Condition
aspirin 81 mg chewable tablet 81 mg PO DAILY #0 tabs 04/01/24 03/30/25 Rx
metformin 1,000 mg tablet 1,000 mg PO BID@0800,1700 #60 tabs 04/01/24 03/30/25 Rx
glipizide 5 mg tablet 2.5 mg PO DAILY Diabetes 03/30/25 03/30/25 History
insulin glargine 100 unit/mL (3 13 unit SC DAILY Diabetes 03/30/25 03/30/25 History
mL) subcutaneous pen (Lantus
Solostar U-100 Insulin)
rosuvastatin 20 mg tablet 20 mg PO DAILY High Cholesterol 03/30/25 03/30/25 History
Review of Systems
-
All other systems: Negative unless noted
Physical Exam
Vital Signs
Vital Signs
Temp Pulse Resp BP Pulse Ox
98.3 F 95 20 128/64 96
04/02/25 12:18 04/02/25 07:40 04/02/25 12:18 04/02/25 07:27 04/02/25 12:18
Lab Results
WBC 8.4 10^3/uL (4.8-10.8) 04/02/25 06:25
RBC 3.49 10^6/uL (4.20-5.40) L 04/02/25 06:25
Hgb 10.1 g/dL (12.0-16.0) L 04/02/25 06:25
Hct 30.2 % (37.0-47.0) L 04/02/25 06:25
Plt Count 251 10^3/uL (130-400) 04/02/25 06:25
Sodium 132 mmol/L (135-145) L 04/02/25 06:25
Potassium 4.3 mmol/L (3.5-5.1) 04/02/25 06:25
Chloride 104 mmol/L (98-107) 04/02/25 06:25
Carbon Dioxide 22 mmol/L (22-30) 04/02/25 06:25
BUN 62 mg/dl (7-17) H 04/02/25 06:25
Creatinine 1.7 mg/dL (0.6-1.0) H 04/02/25 06:25
eGFR 29.76 04/02/25 06:25
Glucose 261 mg/dl (70-99) H 04/02/25 06:25
Calcium 9.0 mg/dl (8.4-10.2) 04/02/25 06:25
Ppi-U-Kphzfgorblx Pept 78190 pg/ml 03/30/25 13:46
Albumin 4.5 g/dl (3.5-5.0) 03/30/25 13:46
Physical Exam
General: Awake, Alert, Oriented, AOx3, No Distress and Nontoxic
HEENT: Anicteric, Conjunctivae Clear and Facial Symmetry
Respiratory: Normal Excursion, Nonlabored Respirations and Other ( decreased breath sounds bilaterally)
Cardiac: S1/S2, Regular Rate/Rhythm and Murmur
Breast: Deferred by me
Abdomen: Soft, Nontender and Nondistended
Musculoskeletal: No Cyanosis and Edema (trace)
Skin: No Rash
Neuro: Nonfocal/Grossly Intact
Psych: Mood/afflect pleasant, Insight/judgement good and Appropriate
Data Reviewed
-
Labs: Labs Reviewed by me, Discussed with Patient and Discussed with Family
Assessment/Plan
-
IMP:
Acute HFrEF
Echocardiogram shows EF of 22% (it was 35% prior)
Elevated troponin likely acute NSTEMI
Cardiogenic shock-On milrinone drip
Paroxysmal A-fib
JOON
Sudden onset of dizziness and double vision on 03/31
h/o CVA
Hyponatremia
Anemia
Leukocytosis
Hypertension
Hyperlipidemia
Diabetes mellitus type 2
Peripheral vascular disease
PLan:
A/w symp a flutter, CHF
LHC noted MVD but not surgical candidate
JOON-suspect CRS and diuretics, need more monitoring with contrast exposure on 04/01
UA with pyuria and bact, 3+bld but no RBC on AC-check urine fena, U cx GNB
check bladder scan and renal US
Bp stable on milrinone, low dose hydralazine per cards
wt no changes cont lasix for now
avoid nephrotoxins till renal function recovers
mild hyponatremia , corrected normal
d/w pt
[2025-04-02 13:10] LABS: Glucose - Point of Care 228 mg/dl (70-99)
[2025-04-02] MEDS: NOVOLOG FLEXPEN-LOW RESISTANCE 2 UNITS SC ×2 (13:17→17:54)
[2025-04-02 14:03] LABS: APTT 179.1 Sec (23.4-35.0)
--- NOTE | 2025-04-02 15:38 | CM ---
dc plans remain home when medically stable. no dc needs noted.
--- NOTE | 2025-04-02 16:00 | PTCARENOTE ---
Pt received this am with no c/o of any pain or sob. Room air sat 97%. Heparin and Milrinone infusing as ordered. Assisted oob to the chair and the BR, gait steady. SR, rate in the 80's to 90's.
[2025-04-02] MEDS: LASIX 40 MG IV (16:20)
[2025-04-02 17:52] LABS: Glucose - Point of Care 246 mg/dl (70-99)
[2025-04-02] MEDS: DESENEX/MITRAZOL/ZEASORB TOPICAL ×2 (19:42→19:48)
[2025-04-02 21:06] LABS: Glucose - Point of Care 201 mg/dl (70-99)
--- NOTE | 2025-04-02 21:24 | PTCARENOTE ---
Pt rec'd at change of shift sitting on side of bed. Dry cough noted. Lungs diminished in bases. Sinus on telemetry. Ptt pending.
Pt denies any stroke symptoms, no double vision.
[2025-04-02 22:10] LABS: APTT 42.7 Sec (23.4-35.0)
--- NOTE | 2025-04-02 22:13 | PTCARENOTE ---
Pt assisted oob to void in bathroom. Once in bathroom voiding pt went into rapid A tach with ht rates in 170's. Pt assisted back to bed immed.
c/o feeling dizzy, ht rate resolved once in bed, back to sinus in 90's. B/p 153/64. O2 placed temporarily. bladder scan performed as ordered post void result neg
--- NOTE | 2025-04-02 22:24 | PTCARENOTE ---
correction rapid rate was afib not A tach
[2025-04-03 04:12] VITALS: BP 127/62
[2025-04-03 04:43] VITALS: BP 119/67
--- NOTE | 2025-04-03 05:04 | PTCARENOTE ---
At 0440 Pt had another episode of rapid afib rates 160's, asympt just sitting on side of bed. converted to sinus after 2 mins. b/p 119/67
[2025-04-03 05:17] LABS: Hematocrit 30.6 % (37.0-47.0); Hemoglobin 10.4 g/dL (12.0-16.0); Mean Corp Hgb Conc. 34.0 g/dL (33.0-37.0); Mean Corpuscular Volume 85.0 fL (81.0-99.0); Platelet Count 241 10^3/uL (130-400); Red Cell Dist. Width 13.0 % (11.5-14.5)
[2025-04-03] MEDS: LOPRESSOR 2.5 MG IV (05:24)
--- NOTE | 2025-04-03 05:24 | PTCARENOTE ---
Pt with another episode of rapid afib. O2 placed at 2 lit n/c. Prn dose of Lopressor given at this time b/p 101/73
[2025-04-03 05:27] LABS: APTT 98.3 Sec (23.4-35.0)
[2025-04-03 05:55] LABS: Blood Urea Nitrogen 60 mg/dl (7-17); Calcium 9.2 mg/dl (8.4-10.2); Carbon Dioxide 24 mmol/L (22-30); Chloride 104 mmol/L (98-107); Estimated Creatinine Clearance 27 ml/min; Glucose 239 mg/dl (70-99); Potassium 4.2 mmol/L (3.5-5.1); Sodium 134 mmol/L (135-145); eGFR 37.56
[2025-04-03 07:54] VITALS: BMI 30.1
[2025-04-03 07:58] LABS: Glucose - Point of Care 261 mg/dl (70-99)
[2025-04-03] MEDS: PRIMACOR 20 MG 100 IV (08:38)
[2025-04-03] MEDS: NOVOLOG FLEXPEN-LOW RESISTANCE 2 UNITS SC (09:56)
[2025-04-03] MEDS: PACERONE 400 MG PO ×2 (09:58→19:42)
[2025-04-03] MEDS: CRESTOR 20 MG PO (09:58)
[2025-04-03] MEDS: LOW STRENGTH ASPIRIN 81 MG PO (09:58)
[2025-04-03] MEDS: APRESOLINE 10 MG PO ×2 (09:58→21:48)
[2025-04-03] MEDS: DESENEX/MITRAZOL/ZEASORB 1 APPLIC TOPICAL (09:59)
[2025-04-03] MEDS: LASIX 40 MG IV ×2 (09:59→16:50)
[2025-04-03] MEDS: LANTUS 0.13 UNITS SC (10:07)
--- NOTE | 2025-04-03 11:02 | W.PN.HOSP.TC ---
Addendum entered and electronically signed by Kelvin Ayala MD 04/03/25 15:47:
UTI--> Start IV Rocephin and f/u urine Cx
Original Note:
Today's Communication/Plan
-
IV Lasix. Milrinone
Assessment / Plan
Assessment / Plan
Physical exam:
General: Acutely ill
HEENT: Normocephalic, Atraumatic and Moist Mucous Membranes
Respiratory: Coarse crackles in the bases; Negative Wheezes, Rales or Rhonchi
Cardiac: Regular Rhythm and S1/S2
GI: Soft, Nontender and Nondistended
Musculoskeletal: No Clubbing, No Cyanosis and No Edema
Neuro: Awake, Alert and Oriented, no neurological deficits but generalized weakness
Psych: Calm
A/P:
Acute HFrEF:
Continue on IV Lasix 40 mg twice a day
GDMT once she is off milrinone
Echocardiogram shows EF of 22% (it was 35% prior) and other multiple abnormalities.
Discussed with family at bedside yesterday
Acute NSTEMI with multivessel CAD:
Cardiology will stop heparin drip today
Continue aspirin and statin
Hold beta-blockers while on milrinone
Status post left heart cath and right heart cath on 04/01
Cardiogenic shock:
On milrinone drip
On oral hydralazine for afterload reduction
Paroxysmal A-fib:
Plan to start oral Eliquis tonight
On loading doses of amiodarone
JOON:
Reviewed kidney ultrasound
Avoid nephrotoxic
Nephrology consult appreciated
Monitor renal function closely
Sudden onset of dizziness and double vision on 03/31:
Neurology evaluated the patient and MRI of the brain no acute ischemic finding
Hyponatremia:
Improving
Continue to monitor closely
Anemia:
Stable
Continue to monitor closely
Leukocytosis:
Reactive
Trended down
Hypertension:
Antihypertensives with caution given shock status
Hyperlipidemia:
Continue home statin
Diabetes mellitus type 2:
Blood sugars relatively elevated and not at goal
Change diet to 1800 branden diabetic diet and low-cholesterol
Continue long-acting insulin with Lantus but will increase from 13 to 15 units
Will add NovoLog 5 units before each meal
Continue insulin sliding scale
Peripheral vascular disease:
On aspirin and statin
DVT prophylaxis:
Eliquis
CODE STATUS:
Full code
Total time spent on today's encounter was 52 minutes which included time spent in counseling the patient/family regarding diagnosis and treatment plan as listed above, goals of care, and symptom management. Case was discussed with nursing staff,
specialists, and care coordinators/case management. All labs and imaging personally reviewed by me. Remainder the time spent in detailed review of previous records, lab data, imaging, and other medical provider documentation.
Anticipated Discharge: > 48 hours
Subjective/Interval History
-
Date of Service: April 03, 2025
Pateint still sob, no cp, no n/v
Objective Data
-
Labs:
Laboratory Results
04/03/25 04/03/25
04:55 11:50
WBC 7.4
Hgb 10.4 L
Hct 30.6 L
Plt Count 241
APTT 98.3 H Pending
Sodium 134 L
Potassium 4.2
Chloride 104
Carbon Dioxide 24
BUN 60 H
Creatinine 1.4 H
Glucose 239 H
Calcium 9.2
Vital Signs:
Vital Signs
Temp Pulse Resp BP Pulse Ox
98.3 F 89 18 101/73 99
04/03/25 07:41 04/03/25 07:41 04/03/25 07:41 04/03/25 05:24 04/03/25 07:41
I&O
04/02/25 04/03/25 04/04/25
06:59 06:59 06:59
Intake Total 480 / 480 240 / 240
Output Total 975 / 975 1300 / 1300
Balance -495 / -495 -1060 / -1060
[2025-04-03 11:40] VITALS: BP 112/57
--- NOTE | 2025-04-03 11:45 | W.PN.CARDCBS ---
Addendum entered and electronically signed by Santiago Fields MD 04/03/25 14:27:
84-year-old woman with recent discovered decrease EF to 35%, with subsequent relatively abrupt severe dyspnea on exertion, admitted from the office 03/30/2025, underlying rhythm possibly atrial tachycardia and subsequently atrial fibrillation.
Cardiac catheterization showed cardiac index of 2, wedge pressure 28, 50-70% mid LAD stenosis, circumflex with tandem 60 and 50% stenosis proximal and mid, obtuse marginal with 50% mid and 80% distal stenosis, proximal RCA was 60-65% stenosis, PDA
with 60% stenosis, posterolateral 80% stenosis, treated with milrinone. Currently on heparin, transitioning to Eliquis
PMH: Right bundle branch block with left anterior fascicular block, diabetes, hypercholesterolemia, hypertension, stroke of right posterior cerebral artery, in retrospect possibly cardioembolic, occluded right SFA
Meds: Amiodarone 400 mg twice daily, aspirin 81 mg a day, rosuvastatin 20 mg a day, furosemide 40 mg IV twice daily, milrinone at 0.2, hydralazine 10 mg 3 times daily, apixaban 5 mg twice daily, heparin
101/73, pulse 89, respiratory rate 18, afebrile, intake and output -1 L, weight is 69.8 kg, Weight was 72.1 kg on admission, diminished breath sounds, relatively tachycardic but regular, no obvious murmurs, JVD okay, not much edema
Hemoglobin 10, BUN and creatinine 61.4, creatinine peaked at 1.7, was 1.0 on admit
Renal ultrasound unremarkable, small stone left brain MRI NAD
Chest x-ray on admission heart failure most recent ECG: A-fib
Impression:
Possible initial atrial flutter/atrial tach, now with PAF, in sinus rhythm on amiodarone
Severe LV dysfunction, possibly tachycardia mediated
Diffuse three-vessel disease, currently being medically managed
Incipient cardiogenic shock/acute HFrEF on milrinone
JOON, possibly contrast related, improving
DM, hypertension, hyperlipidemia, occluded right SFA, moderate MR, history of stroke, right bundle with left anterior fascicular block
Plan:
Overall improved regarding severe LV dysfunction. Volume status improved, no overt heart failure at present. Still on milrinone.
Continue IV Lasix and continue milrinone. With improved renal function will increase to 0.3 mcg/kg/min.
Currently in sinus rhythm on amiodarone.
No further dizziness/diplopia, MRI of brain without acute change
Hold hydralazine for now. If she is not a candidate for JACKELYN/ARB, hydralazine and nitrates may be of value and could be considered if blood pressure predicts, but without nitrates, hydralazine probably of limited benefit.
Defer to hospitalist regarding hematuria, bacteriuria, etc.
Ultimately transition to oral Lasix and begin GDMT. She remains fragile in the meantime however. Unclear if she will be able to take JACKELYN/ARB/spironolactone. Probably should be on SGLT2 antagonist.
Plan for CAD at present is medical management, agree with transition from heparin to Eliquis. Although patient has CAD, single agent probably best so continue Eliquis and stop aspirin unless patient goes to PCI.
Critical care time 45 minutes.
Original Note:
Today's Communication / Plan
-
Stop heparin drip
Continue amiodarone load and attempts of maintaining sinus rhythm
Daily EKGs for monitoring of QTc
Start Eliquis this evening
Continue milrinone and attempts at diuresis
Eventual GDMT once patient off milrinone
Impression / Plan
-
Please see office note dated 03/30/25 to serve as H&P
Primary Universal Winding Machine Operator: Dr. ALEX Fields
Assessment:
Presentation 03/2025 with SOB, palpitations
Acute HFrEF
Paroxysmal atrial tachycardia/atrial fibrillation with RVR, new diagnosis of unclear duration, suspected paroxysmal
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
Cardiomyopathy, EF 35% by echo 02/2025
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
History of CVA 2023
Mod MR
DM2
HTN
HLD
PAD with prior occluded R SFA
ECHO 04/17/24: EF 55%, aortic sclerosis, mild to moderate MR
ECHO 03/05/25: EF 35%, septal dyskinesis consistent with bundle branch block, mild LVH with moderate to severe basal septal hypertrophy, grade 1 diastolic dysfunction, moderate MR, trace TR
Echo 03/31/2025: EF 22%, bilateral pleural effusions noted, MR worsened from moderate to severe, global hypokinesis with inferolateral, mid anteroseptal, anterior, lateral, apical akinesis, no sign of LV clot, mild to moderate LVH with septum
measuring 1.5 cm, mild TR, PAP 45 mmHg
Cardiac catheterization 04/01/2025: LM: Normal. LAD: Long 50 to 70% stenosis in mid portion beyond first diagonal extending into mid LAD beyond second diagonal. Circumflex: Tandem 50 and 60% stenosis in proximal and midportion. OM branch 50% mid
and 80% distal stenosis. RCA: 60 to 65% proximal stenosis. RPDA 60% proximal stenosis and RPL branch 80% stenosis
Plan:
84-year-old female new patient to [facility] cardiology/Dr. Fields referred to the ER from the office 03/30/2025 with tachycardia and shortness of breath with acute HFrEF found to new cardiomyopathy with LV ejection fraction 22-35%, moderate to severe mitral
regurgitation, NSTEMI with multivessel coronary artery disease by left heart catheterization 04/01/2025 and PAT/PAF
Acute HFrEF, new diagnosis of severe LV systolic dysfunction with EF estimated less than 30% who presented in cardiogenic shock with elevated lactic acid placed on milrinone with right heart catheterization 04/01/2025 reporting cardiac index 2 on
milrinone 0.2mcg/kg/min with moderately elevated left ventricular filling pressures and a wedge pressure of 28 mmHg
-proBNP 13,000
- Ongoing diuresis with IV Lasix, renal function improving with peak of 1.7 ( status post catheterization/dye load) now 1.4 04/03/2025
- Nephrology consult [outpatient lisinopril and metformin held]; renal ultrasound 04/03/2025 with small simple cyst of left lower pole and 0.8 cm left intrarenal calculus. No hydronephrosis.
- Add hydralazine and if tolerates add Isordil
- Hopeful eventual GDMT as creatinine improves, patient becomes more hemodynamically stable. Blood pressure seems to drop when patient is in rapid A-fib but does improve when she is in sinus rhythm.
- Continue milrinone drip while optimizing volume status
Multivessel coronary artery disease with peak troponin 1.83
-Appreciate CT surgery consult, felt to be a poor surgical candidate
- Discussions underway regarding high risk LAD PCI. As long as patient remains free of anginal symptoms would attempt titration of GDMT for CAD and LV dysfunction. If fails medical therapy would offer PCI of mid LAD and/or circumflex.
- Continue aspirin 81 mg daily, rosuvastatin 20 mg daily [LDL 35]
Rapid PAT/PAF, new diagnosis
- She is currently in sinus rhythm. However still having paroxysms of atrial fibrillation with rapid ventricular response on telemetry
- Amiodarone load with 400 mg twice daily. Patient has gotten 3200 mg as of 04/03/2025 in AM.
- Check EKG today for QTc
- Currently on IV heparin. Given no current plan for PCI would initiate Eliquis. Creatinine now less than 1.5, age 84, weight 153. Will need 5 mg twice daily
- Eventual addition of carvedilol once off milrinone
- TSH within normal limits
Type 2 diabetes mellitus�management per hospitalist
- discussed with nursing, hospitalist, CT surg GENERAL PRACTICE. discussed with sister at bedside
Progress Note - Universal Winding Machine Operator
Subjective
Date of Service: April 03, 2025
Patient seen and examined. Patient sitting in chair. Continues to feel some dyspnea on exertion with chronic dry cough. Denies chest pain
Objective
Labs:
04/03/25 04:55
04/03/25 04:55
Labs
Hgb 10.4 g/dL (12.0-16.0) L 04/03/25 04:55
Hct 30.6 % (37.0-47.0) L 04/03/25 04:55
Plt Count 241 10^3/uL (130-400) 04/03/25 04:55
PT 16.0 Sec (11.4-14.6) H 03/30/25 13:46
INR 1.26 03/30/25 13:46
APTT 98.3 Sec (23.4-35.0) H 04/03/25 04:55
Sodium 134 mmol/L (135-145) L 04/03/25 04:55
Potassium 4.2 mmol/L (3.5-5.1) 04/03/25 04:55
BUN 60 mg/dl (7-17) H 04/03/25 04:55
Creatinine 1.4 mg/dL (0.6-1.0) H 04/03/25 04:55
Glucose 239 mg/dl (70-99) H 04/03/25 04:55
Troponins
03/31/25 03/31/25 04/01/25
15:38 21:14 02:57
Troponin I 1.700 H* 1.830 H* 1.490 H*
Vital Signs and I&O:
Vital Signs
Temp Pulse Resp BP Pulse Ox
98.3 F 89 18 101/73 99
04/03/25 07:41 04/03/25 07:41 04/03/25 07:41 04/03/25 05:24 04/03/25 07:41
Vital Signs
Temp Pulse Resp BP Pulse Ox
98.3 F 89 18 101/73 99
04/03/25 07:41 04/03/25 07:41 04/03/25 07:41 04/03/25 05:24 04/03/25 07:41
Intake & Output
04/01/25 04/02/25 04/03/25 04/04/25
06:59 06:59 06:59 06:59
Intake Total 1240 / 1240 480 / 480 240 / 240
Output Total 600 / 600 975 / 975 1300 / 1300
Balance 640 / 640 -495 / -495 -1060 / -1060
Physical Exam
Physical Exam
GEN: No distress, awake, Ox3, sitting in chair on room air
HEENT: supple, anicteric, mmm
LUNGS: Crackles at bases with decreased breath sounds, no wheezes/rales
CV: Reg, S1/S2, 1/6 syst LSB, no murmur
ABD: soft, BS+, NT/ND
EXT: No edema, clubbing or cyanosis
NEURO: Gross non-focal
SKIN: No rash, warm, dry, pink
--- NOTE | 2025-04-03 12:39 | W.PN.NEPH.PH ---
Today's Communication / Plan
-
follow labs in [facility]
Assessment/Plan
-
IMP:
Acute HFrEF
Echocardiogram shows EF of 22% (it was 35% prior)
Elevated troponin likely acute NSTEMI
Cardiogenic shock-On milrinone drip
Paroxysmal A-fib
JOON
Sudden onset of dizziness and double vision on 03/31
h/o CVA
Hyponatremia
Anemia
Leukocytosis
Hypertension
Hyperlipidemia
Diabetes mellitus type 2
Peripheral vascular disease
PLan:
A/w symp a flutter, CHF
C noted MVD but not surgical candidate
JOON-suspect CRS and diuretics, contrast exposure on 04/01
UA with pyuria and bact, 3+bld but no RBC on AC, urine fena not low, U cx GNB
sub nephrotic proteinuria 1.7gm/gm of cr need f/u as out pt
renal US no hydro, non obst stone of left kidney
Bp stable on milrinone, low dose hydralazine per cards
wt improving cont lynette for now as she still not baseline
avoid nephrotoxins
mild hyponatremia , corrected normal
d/w pt and DIL
-
-
Date of Service: April 03, 2025
CC / HPI / ROS
-
Chief Complaint:
JOON
History of Present Illness:
cr improving to 1.4, non oliguric
wt decreasing, Bp stable on milrinone
Review of Systems:
still mild sob over all improving on RA
no n/v or cp
Labs
-
Labs:
WBC 7.4 10^3/uL (4.8-10.8) 04/03/25 04:55
RBC 3.60 10^6/uL (4.20-5.40) L 04/03/25 04:55
Hgb 10.4 g/dL (12.0-16.0) L 04/03/25 04:55
Hct 30.6 % (37.0-47.0) L 04/03/25 04:55
Plt Count 241 10^3/uL (130-400) 04/03/25 04:55
Sodium 134 mmol/L (135-145) L 04/03/25 04:55
Potassium 4.2 mmol/L (3.5-5.1) 04/03/25 04:55
Chloride 104 mmol/L (98-107) 04/03/25 04:55
Carbon Dioxide 24 mmol/L (22-30) 04/03/25 04:55
BUN 60 mg/dl (7-17) H 04/03/25 04:55
Creatinine 1.4 mg/dL (0.6-1.0) H 04/03/25 04:55
eGFR 37.56 04/03/25 04:55
Glucose 239 mg/dl (70-99) H 04/03/25 04:55
Calcium 9.2 mg/dl (8.4-10.2) 04/03/25 04:55
Jzb-L-Igbxaetyrzf Pept 60495 pg/ml 03/30/25 13:46
Albumin 4.5 g/dl (3.5-5.0) 03/30/25 13:46
Physical Exam
-
Vital Signs:
Vital Signs
Temp Pulse Resp BP Pulse Ox
97.9 F 89 18 101/73 99
04/03/25 11:49 04/03/25 07:41 04/03/25 11:49 04/03/25 05:24 04/03/25 11:49
Cardiovascular:: Regular rate and rhythm
Respiratory:: Bilateral: Coarse (at bases)
Lung Excursion:: Normal
Abdomen:: Nontender and Soft
Extremity Edema:: +1: Bilateral:
Lomeli Catheter: No
[2025-04-03 12:43] LABS: APTT 84.3 Sec (23.4-35.0)
[2025-04-03 16:03] VITALS: BP 108/69
[2025-04-03] MEDS: NOVOLOG FLEXPEN-LOW RESISTANCE SC (16:08)
[2025-04-03] MEDS: ROCEPHIN 1000 MG IV (16:50)
[2025-04-03] MEDS: APRESOLINE PO ×2 (16:50→17:01)
[2025-04-03] MEDS: STERILE WATER FOR INJECTION 10 ML IV (16:50)
[2025-04-03 17:57] LABS: Glucose - Point of Care 301 mg/dl (70-99)
[2025-04-03] MEDS: NOVOLOG FLEXPEN-LOW RESISTANCE 4 UNITS SC (18:31)
[2025-04-03] MEDS: NOVOLOG FLEXPEN 5 UNITS SC (18:31)
[2025-04-03 19:40] VITALS: BP 132/74
[2025-04-03] MEDS: ELIQUIS 5 MG PO (19:42)
[2025-04-03] MEDS: DESENEX/MITRAZOL/ZEASORB TOPICAL (19:43)
--- NOTE | 2025-04-03 20:58 | PTCARENOTE ---
Received pt @ change of shift. AAOx3, VSS-- NSR w/ BBB on monitor. Milrinone running through left forearm @ 2.4 mL/hr. Right radial and brachial sites JOVANY and ecchymotic. Soft to touch, no hematoma or swelling present. Bedside commode moved close to
pt for ease of ambulation with pump and urgency. Refused Desenex powder to groin. RN educated pt of MASD-- still refused-- said will use it in the morning. Discussed plan of care for evening. Pt verbalizes understanding. Plan of care ongoing. Call
lopez within reach.
[2025-04-03 21:47] VITALS: BP 135/67
[2025-04-03 22:14] LABS: Glucose - Point of Care 206 mg/dl (70-99)
[2025-04-04] VITALS (8 sets, daily range): BP systolic 109–128; BP diastolic 55–65; BMI 29.8
[2025-04-04 05:03] LABS: Hematocrit 29.9 % (37.0-47.0); Hemoglobin 10.0 g/dL (12.0-16.0); Mean Corp Hgb Conc. 33.4 g/dL (33.0-37.0); Mean Corpuscular Volume 85.4 fL (81.0-99.0); Platelet Count 219 10^3/uL (130-400); Red Cell Dist. Width 12.9 % (11.5-14.5)
[2025-04-04 05:17] LABS: Blood Urea Nitrogen 59 mg/dl (7-17); Calcium 9.4 mg/dl (8.4-10.2); Carbon Dioxide 23 mmol/L (22-30); Chloride 101 mmol/L (98-107); Estimated Creatinine Clearance 27 ml/min; Glucose 252 mg/dl (70-99); Potassium 4.3 mmol/L (3.5-5.1); Sodium 133 mmol/L (135-145); eGFR 37.56
[2025-04-04] MEDS: PRIMACOR 20 MG 100 IV (07:47)
[2025-04-04] MEDS: CRESTOR 20 MG PO (07:55)
[2025-04-04] MEDS: LASIX 40 MG IV ×2 (07:55→16:04)
[2025-04-04] MEDS: ELIQUIS 5 MG PO ×2 (07:55→20:41)
[2025-04-04] MEDS: APRESOLINE 10 MG PO (07:55)
[2025-04-04] MEDS: PACERONE 400 MG PO (07:55)
[2025-04-04] MEDS: FLUSH (NSS) 2 FLUSH IV (07:56)
[2025-04-04] MEDS: DESENEX/MITRAZOL/ZEASORB 1 APPLIC TOPICAL ×2 (07:57→20:44)
[2025-04-04 08:34] LABS: Glucose - Point of Care 235 mg/dl (70-99)
[2025-04-04] MEDS: LANTUS 0.2 UNITS SC (08:34)
[2025-04-04] MEDS: NOVOLOG FLEXPEN 5 UNITS SC ×3 (09:22→18:21)
[2025-04-04] MEDS: NOVOLOG FLEXPEN-LOW RESISTANCE 2 UNITS SC ×2 (09:22→18:21)
--- NOTE | 2025-04-04 09:24 | W.PN.HOSP.TC ---
Today's Communication/Plan
-
IV Lasix. GDMT. PT eval
Assessment / Plan
Assessment / Plan
Physical exam:
General: Acutely ill
HEENT: Normocephalic, Atraumatic and Moist Mucous Membranes
Respiratory: Coarse crackles in the bases; Negative Wheezes, Rales or Rhonchi
Cardiac: Regular Rhythm and S1/S2
GI: Soft, Nontender and Nondistended
Musculoskeletal: No Clubbing, No Cyanosis and No Edema
Neuro: Awake, Alert and Oriented, no neurological deficits but generalized weakness
Psych: Calm
A/P:
Acute HFrEF:
Continue on IV Lasix 40 mg twice a day
GDMT over the next 24 hours
Echocardiogram shows EF of 22% (it was 35% prior) and other multiple abnormalities.
Discussed with family at bedside prior
PT OT eval
Acute NSTEMI with multivessel CAD:
Off heparin drip
Continue aspirin and statin
Defer beta-blockers to cardiology
Status post left heart cath and right heart cath on 04/01
Cardiogenic shock:
Stop milrinone drip today
Discontinue oral hydralazine per cardiology
Paroxysmal A-fib:
Continue Eliquis
On loading doses of amiodarone
Defer rate control to cardiology
JOON:
Reviewed kidney ultrasound
Avoid nephrotoxic
Nephrology consult appreciated
Monitor renal function closely
Probable UTI:
E. coli in the urine culture pending sensitivity
Continue IV ceftriaxone 1 g daily and switch to oral over the next 24 hours or simply discontinue.
Sudden onset of dizziness and double vision on 03/31:
Neurology evaluated the patient and MRI of the brain no acute ischemic finding
Hyponatremia:
Improving
Continue to monitor closely
Anemia:
Stable
Continue to monitor closely
Leukocytosis:
Reactive and some element of infection
Trended down
Hypertension:
Antihypertensives with caution given shock status
Hyperlipidemia:
Continue home statin
Diabetes mellitus type 2:
Blood sugars relatively elevated and not at goal
Change diet to 1800 branden diabetic diet and low-cholesterol
Continue long-acting insulin with Lantus but will increase from 13 to 15 units yesterday and today will increase up to 20 units.
Continue NovoLog 5 units before each meal
Continue insulin sliding scale
Peripheral vascular disease:
On aspirin and statin
DVT prophylaxis:
Eliquis
CODE STATUS:
Full code
Total time spent on today's encounter was 52 minutes which included time spent in counseling the patient/family regarding diagnosis and treatment plan as listed above, goals of care, and symptom management. Case was discussed with nursing staff,
specialists, and care coordinators/case management. All labs and imaging personally reviewed by me. Remainder the time spent in detailed review of previous records, lab data, imaging, and other medical provider documentation.
Anticipated Discharge: > 48 hours
Subjective/Interval History
-
Date of Service: April 04, 2025
Patient feels better overall. Still shortness of breath on exertion but not at rest. No chest pain. Afebrile
Objective Data
-
Labs:
Laboratory Results
04/04/25
04:42
WBC 7.0
Hgb 10.0 L
Hct 29.9 L
Plt Count 219
Sodium 133 L
Potassium 4.3
Chloride 101
Carbon Dioxide 23
BUN 59 H
Creatinine 1.4 H
Glucose 252 H
Calcium 9.4
Vital Signs:
Vital Signs
Temp Pulse Resp BP Pulse Ox
97.6 F 81 20 116/56 94
04/04/25 07:35 04/04/25 07:36 04/04/25 07:35 04/04/25 07:36 04/04/25 08:47
I&O
04/03/25 04/04/25 04/05/25
06:59 06:59 06:59
Intake Total 240 / 240
Output Total 1300 / 1300 2124
Balance -1060 / -1060 -2094 /
[2025-04-04 12:21] LABS: Glucose - Point of Care 325 mg/dl (70-99)
--- NOTE | 2025-04-04 12:42 | W.PN.NEPH.PH ---
Today's Communication / Plan
-
see plan
Assessment/Plan
-
IMP:
Acute HFrEF
Echocardiogram shows EF of 22% (it was 35% prior)
Elevated troponin likely acute NSTEMI
Cardiogenic shock-On milrinone drip
Paroxysmal A-fib
JOON
Sudden onset of dizziness and double vision on 03/31
h/o CVA
Hyponatremia
Anemia
Leukocytosis
Hypertension
Hyperlipidemia
Diabetes mellitus type 2
Peripheral vascular disease
PLan:
A/w symp a flutter, CHF
LHC noted MVD but not surgical candidate
JOON-suspect CRS and diuretics, contrast exposure on 04/01
cr stable at 1.4
UA with pyuria and bact, 3+bld but no RBC on AC, urine fena not low, U cx GNB
sub nephrotic proteinuria 1.7gm/gm of cr need f/u as out pt
renal US no hydro, non obst stone of left kidney
Bp stable on milrinone, low dose hydralazine per cards
will wait addition of ACEI or ARB till cr improves, hold SGLT2I with suspected UTI
wt improving cont lasix , likely change to po in am
avoid nephrotoxins
mild hyponatremia , corrected normal
nephro or pcp f/u
d/w pt and sister
-
-
Date of Service: April 04, 2025
CC / HPI / ROS
-
Chief Complaint:
JOON
History of Present Illness:
cr stable at 1.4, non oliguric
wt decreasing, Bp stable on milrinone
Review of Systems:
still mild sob over all improving on RA
no n/v or cp
has cough when takes deep breath
Labs
-
Labs:
WBC 7.0 10^3/uL (4.8-10.8) 04/04/25 04:42
RBC 3.50 10^6/uL (4.20-5.40) L 04/04/25 04:42
Hgb 10.0 g/dL (12.0-16.0) L 04/04/25 04:42
Hct 29.9 % (37.0-47.0) L 04/04/25 04:42
Plt Count 219 10^3/uL (130-400) 04/04/25 04:42
Sodium 133 mmol/L (135-145) L 04/04/25 04:42
Potassium 4.3 mmol/L (3.5-5.1) 04/04/25 04:42
Chloride 101 mmol/L (98-107) 04/04/25 04:42
Carbon Dioxide 23 mmol/L (22-30) 04/04/25 04:42
BUN 59 mg/dl (7-17) H 04/04/25 04:42
Creatinine 1.4 mg/dL (0.6-1.0) H 04/04/25 04:42
eGFR 37.56 04/04/25 04:42
Glucose 252 mg/dl (70-99) H 04/04/25 04:42
Calcium 9.4 mg/dl (8.4-10.2) 04/04/25 04:42
Tvx-W-Byzlvwtbyng Pept 66189 pg/ml 03/30/25 13:46
Albumin 4.5 g/dl (3.5-5.0) 03/30/25 13:46
Physical Exam
-
Vital Signs:
Vital Signs
Temp Pulse Resp BP Pulse Ox
97.9 F 82 20 123/62 95
04/04/25 11:44 04/04/25 11:45 04/04/25 11:44 04/04/25 11:45 04/04/25 11:44
Cardiovascular:: Regular rate and rhythm
Respiratory:: Bilateral: CTA (decrased)
Lung Excursion:: Normal
Abdomen:: Nontender and Soft
Extremity Edema:: +1: Bilateral:
Lomeli Catheter: No
--- NOTE | 2025-04-04 12:43 | W.PN.CARDCBS ---
Today's Communication / Plan
-
Stop milrinone
Stop hydralazine
If okay with nephrology/hospitalist would like to start JACKELYN or ARB, possibly SGLT2 antagonist
Eventually consider low-dose beta-landen, possibly spironolactone?
Impression / Plan
-
Please see office note dated 03/30/25 to serve as H&P
Primary Upholstery Handler: Dr. ALEX Fields
Assessment:
Presentation 03/2025 with SOB, palpitations
Acute HFrEF
Paroxysmal atrial tachycardia/atrial fibrillation with RVR, new diagnosis of unclear duration, suspected paroxysmal
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
Cardiomyopathy, EF 35% by echo 02/2025
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
History of CVA 2023
Mod MR
DM2
HTN
HLD
PAD with prior occluded R SFA
ECHO 04/17/24: EF 55%, aortic sclerosis, mild to moderate MR
ECHO 03/05/25: EF 35%, septal dyskinesis consistent with bundle branch block, mild LVH with moderate to severe basal septal hypertrophy, grade 1 diastolic dysfunction, moderate MR, trace TR
Echo 03/31/2025: EF 22%, bilateral pleural effusions noted, MR worsened from moderate to severe, global hypokinesis with inferolateral, mid anteroseptal, anterior, lateral, apical akinesis, no sign of LV clot, mild to moderate LVH with septum
measuring 1.5 cm, mild TR, PAP 45 mmHg
Cardiac catheterization 04/01/2025: LM: Normal. LAD: Long 50 to 70% stenosis in mid portion beyond first diagonal extending into mid LAD beyond second diagonal. Circumflex: Tandem 50 and 60% stenosis in proximal and midportion. OM branch 50% mid
and 80% distal stenosis. RCA: 60 to 65% proximal stenosis. RPDA 60% proximal stenosis and RPL branch 80% stenosis
Plan:
Overall, she is improved.
My plan had been to stop hydralazine yesterday, though I neglected to do so. Will stop today.
Stop milrinone.
Transition furosemide to 40 mg p.o. twice daily. Recheck proBNP in AM.
Goal would be to eventually start GDMT, including low-dose beta-blockade, JACKELYN or ARB, SGLT2 antagonist, and possibly even spironolactone
Preference would be to start with SGLT2 antagonists and JACKELYN or ARB if okay with nephrology/hospitalist
Continue amiodarone. Continue apixaban.
Treatment of UTI per hospitalist.
We can start to think about discharge planning
Currently plan will be for ongoing medical management of this three-vessel CAD. Can reassess as outpatient.
Progress Note - Upholstery Handler
Subjective
Date of Service: April 04, 2025:
84-year-old woman with recent discovered decrease EF to 35%, with subsequent relatively abrupt severe dyspnea on exertion, admitted from the office 03/30/2025, underlying rhythm possibly atrial tachycardia and subsequently atrial fibrillation.
Cardiac catheterization showed cardiac index of 2, wedge pressure 28, 50-70% mid LAD stenosis, circumflex with tandem 60 and 50% stenosis proximal and mid, obtuse marginal with 50% mid and 80% distal stenosis, proximal RCA was 60-65% stenosis, PDA
with 60% stenosis, posterolateral 80% stenosis, treated with milrinone. Currently on heparin, transitioning to Eliquis
PMH: Right bundle branch block with left anterior fascicular block, diabetes, hypercholesterolemia, hypertension, stroke of right posterior cerebral artery, in retrospect possibly cardioembolic, occluded right SFA
Meds: Amiodarone 400 mg twice daily, aspirin 81 mg a day, rosuvastatin 20 mg a day, furosemide 40 mg IV twice daily, milrinone at 0.3, hydralazine 10 mg 3 times daily, apixaban 5 mg twice daily, ceftriaxone, insulin
123/62, pulse 82, respiratory rate 20, sats are 95%, weight is 69.2 kg, down 0.6 kg lungs are clear, distant heart tones, soft systolic murmur at apex, JVD okay, trace to 1+ edema
Hemoglobin is 10, white count is 7, platelets 219, sodium 133, potassium is 4.3, BUN and creatinine are 59 and 1.4, stable
Objective
Labs:
04/04/25 04:42
04/04/25 04:42
Labs
Hgb 10.0 g/dL (12.0-16.0) L 04/04/25 04:42
Hct 29.9 % (37.0-47.0) L 04/04/25 04:42
Plt Count 219 10^3/uL (130-400) 04/04/25 04:42
PT 16.0 Sec (11.4-14.6) H 03/30/25 13:46
INR 1.26 03/30/25 13:46
APTT 84.3 Sec (23.4-35.0) H 04/03/25 12:10
Sodium 133 mmol/L (135-145) L 04/04/25 04:42
Potassium 4.3 mmol/L (3.5-5.1) 04/04/25 04:42
BUN 59 mg/dl (7-17) H 04/04/25 04:42
Creatinine 1.4 mg/dL (0.6-1.0) H 04/04/25 04:42
Glucose 252 mg/dl (70-99) H 04/04/25 04:42
Vital Signs and I&O:
Vital Signs
Temp Pulse Resp BP Pulse Ox
36.6 C 82 20 123/62 95
04/04/25 11:44 04/04/25 11:45 04/04/25 11:44 04/04/25 11:45 04/04/25 11:44
Vital Signs
Temp Pulse Resp BP Pulse Ox
36.6 C 82 20 123/62 95
04/04/25 11:44 04/04/25 11:45 04/04/25 11:44 04/04/25 11:45 04/04/25 11:44
Intake & Output
04/02/25 04/03/25 04/04/25 04/05/25
07:59 07:59 07:59 07:59
Intake Total 480 / 480 240 / 240 30 / 30 360 / 360
Output Total 975 / 975 1300 / 1300 2125 / 2125 1100 / 1100
Balance -495 / -495 -1060 / -1060 -2095 / -2095 -740 / -740
Physical Exam
Physical Exam
See above
[2025-04-04] MEDS: NOVOLOG FLEXPEN-LOW RESISTANCE 4 UNITS SC (13:10)
[2025-04-04] MEDS: STERILE WATER FOR INJECTION 10 ML IV (16:04)
[2025-04-04] MEDS: FLUSH (NSS) 3 FLUSH IV (16:04)
[2025-04-04] MEDS: ROCEPHIN 1000 MG IV (16:05)
--- NOTE | 2025-04-04 16:16 | PTCARENOTE ---
The patient complained of feeling 'a little dizzy' while sitting in the chair. Her heart rhythm was showing rapid Afib with a hr fluctuating between the 120s-140s. As I was speaking to her, the Afib broke to NSR with a hr of 80. She stated that she
felt much better and wasn't experiencing any dizziness anymore.
[2025-04-04 18:18] LABS: Glucose - Point of Care 241 mg/dl (70-99)
[2025-04-04] MEDS: PACERONE 200 MG PO (20:41)
[2025-04-04 22:19] LABS: Glucose - Point of Care 248 mg/dl (70-99)
[2025-04-04 23:24] LABS: MuSK IgG Ab CBA IFA, Serum <1:10 (<1:10)
[2025-04-05] VITALS (7 sets, daily range): BP systolic 119–134; BP diastolic 63–100; BMI 29.5
--- NOTE | 2025-04-05 00:32 | PTCARENOTE ---
Received pt from day shift, NS on the monitor with BBB, sometimes will go into A-fib, can get tachy with activity. Right radial and brachial sites JOVANY with bruising on both. Pt's VSS, NIH was 0. Call lopez in reach.
[2025-04-05 02:35] LABS: Hematocrit 33.5 % (37.0-47.0); Hemoglobin 11.4 g/dL (12.0-16.0); Mean Corp Hgb Conc. 34.0 g/dL (33.0-37.0); Mean Corpuscular Volume 85.7 fL (81.0-99.0); Nucleated Red Blood Cells % 0 %; Platelet Count 267 10^3/uL (130-400); Red Cell Dist. Width 13.1 % (11.5-14.5)
[2025-04-05 03:07] LABS: Blood Urea Nitrogen 60 mg/dl (7-17); Calcium 9.4 mg/dl (8.4-10.2); Carbon Dioxide 26 mmol/L (22-30); Chloride 100 mmol/L (98-107); Estimated Creatinine Clearance 25 ml/min; Glucose 258 mg/dl (70-99); Magnesium 2.0 mg/dl (1.6-2.3); Potassium 4.1 mmol/L (3.5-5.1); Sodium 135 mmol/L (135-145); eGFR 34.58
[2025-04-05 05:47] LABS: Glucose - Point of Care 306 mg/dl (70-99)
--- NOTE | 2025-04-05 06:03 | PTCARENOTE ---
At approx 05:45, pt rang call lopez. Complained of dizziness and feeling sweaty all over. Patient lying in bed and kept repeating 'I have to get up, I need to get out'. Blood pressure 121/100, HR in the 80-90s. Remains SR on monitor. Blood sugar 306.
Repositioned patient in bed, and elevated her HOB up. Patient w/ good relief. Denies any further dizziness. Robert Mtz [employer] CLERK made aware. Call lopez in reach, bed alarm remains active.
[2025-04-05 07:51] LABS: Glucose - Point of Care 281 mg/dl (70-99)
[2025-04-05] MEDS: LANTUS 0.2 UNITS SC (07:53)
[2025-04-05] MEDS: LASIX 40 MG PO ×2 (07:54→17:26)
[2025-04-05] MEDS: NOVOLOG FLEXPEN 5 UNITS SC ×3 (07:54→17:27)
[2025-04-05] MEDS: CRESTOR 20 MG PO (07:54)
[2025-04-05] MEDS: ELIQUIS 5 MG PO ×2 (07:54→20:21)
[2025-04-05] MEDS: PACERONE 200 MG PO ×2 (07:54→20:21)
[2025-04-05] MEDS: NOVOLOG FLEXPEN-LOW RESISTANCE 3 UNITS SC ×2 (07:55→17:27)
--- NOTE | 2025-04-05 08:21 | W.PN.NEPH.PH ---
Today's Communication / Plan
-
Creatinine stable at baseline
Oral diuretics on
Hyponatremia improved with oral Lasix administered
Stable for discharge from nephrology standpoint
Assessment/Plan
-
IMP:
Acute HFrEF
Echocardiogram shows EF of 22% (it was 35% prior)
Elevated troponin likely acute NSTEMI
Cardiogenic shock-On milrinone drip
Paroxysmal A-fib
JOON
Sudden onset of dizziness and double vision on 03/31
h/o CVA
Hyponatremia
Anemia
Leukocytosis
Hypertension
Hyperlipidemia
Diabetes mellitus type 2
Peripheral vascular disease
PLan:
A/w symp a flutter, CHF
LHC noted MVD but not surgical candidate
JOON-suspect CRS and diuretics, contrast exposure on 04/01
cr stable at 1.5
UA with pyuria and bact, 3+bld but no RBC on AC, urine fena not low, U cx GNB
sub nephrotic proteinuria 1.7gm/gm of cr need f/u as out pt
renal US no hydro, non obst stone of left kidney
Bp stable on milrinone, low dose hydralazine per cards
will wait addition of ACEI or ARB till cr improves, hold SGLT2I with suspected UTI
wt improving cont lasix , likely change to po in am
avoid nephrotoxins
mild hyponatremia , corrected normal
nephro or pcp f/u
d/w pt and sister
-
-
Date of Service: April 05, 2025
CC / HPI / ROS
-
Chief Complaint:
JOON
History of Present Illness:
cr stable at 1.5, non oliguric
Hemodynamically stable
Review of Systems:
still mild sob over all improving on RA
no n/v or cp
wieghts down
Labs
-
Labs:
WBC 9.2 10^3/uL (4.8-10.8) 04/05/25 02:12
RBC 3.91 10^6/uL (4.20-5.40) L 04/05/25 02:12
Hgb 11.4 g/dL (12.0-16.0) L 04/05/25 02:12
Hct 33.5 % (37.0-47.0) L 04/05/25 02:12
Plt Count 267 10^3/uL (130-400) D 04/05/25 02:12
Sodium 135 mmol/L (135-145) 04/05/25 02:12
Potassium 4.1 mmol/L (3.5-5.1) 04/05/25 02:12
Chloride 100 mmol/L (98-107) 04/05/25 02:12
Carbon Dioxide 26 mmol/L (22-30) 04/05/25 02:12
BUN 60 mg/dl (7-17) H 04/05/25 02:12
Creatinine 1.5 mg/dL (0.6-1.0) H 04/05/25 02:12
eGFR 34.58 04/05/25 02:12
Glucose 258 mg/dl (70-99) H 04/05/25 02:12
Calcium 9.4 mg/dl (8.4-10.2) 04/05/25 02:12
Ezi-H-Lfxgilhswjv Pept 56125 pg/ml 04/05/25 02:12
Albumin 4.5 g/dl (3.5-5.0) 03/30/25 13:46
Physical Exam
-
Vital Signs:
Vital Signs
Temp Pulse Resp BP Pulse Ox
98 F 78 16 132/70 95
04/05/25 02:06 04/05/25 08:00 04/05/25 08:01 04/05/25 07:58 04/05/25 08:01
Cardiovascular:: Regular rate and rhythm
Respiratory:: Bilateral: CTA (decrased)
Lung Excursion:: Normal
Abdomen:: Nontender and Soft
Extremity Edema:: +1: Bilateral:
Lomeli Catheter: No
--- NOTE | 2025-04-05 08:35 | PTCARENOTE ---
Assumed care. Patient AO x3. NSR BBB HR 83. Trace pedal and ankle edema. On room air, denies shortness of breath, decreased at bases. Assisted to the bathroom, voided yellow urine. In chair, alarms audible, call lopez in reach
[2025-04-05] MEDS: DESENEX/MITRAZOL/ZEASORB 1 APPLIC TOPICAL ×2 (09:49→20:22)
--- NOTE | 2025-04-05 10:02 | W.PN.HOSP.TC ---
Today's Communication/Plan
-
.
Assessment / Plan
Assessment / Plan
Physical exam:
General: Acutely ill
HEENT: Normocephalic, Atraumatic and Moist Mucous Membranes
Respiratory: no Coarse crackles in the bases; limited. Negative Wheezes, Rales or Rhonchi
Cardiac: Regular Rhythm and S1/S2
GI: Soft, Nontender and Nondistended
Musculoskeletal: No Clubbing, No Cyanosis and No Edema
Neuro: Awake, Alert and Oriented, no neurological deficits but generalized weakness
Psych: Calm
A/P:
Acute HFrEF:
She feels better
Less sob
No chest pain
On IV Lasix 40 mg twice a day
Echocardiogram shows EF of 22% (it was 35% prior) and other multiple abnormalities.
Appreciate cardiology help
PT OT eval
Acute NSTEMI with multivessel CAD:
Off heparin drip
Continue aspirin and statin
Defer beta-blockers to cardiology
Status post left heart cath and right heart cath on 04/01
Cardiogenic shock:
off milrinone drip
c/w Lasix
Paroxysmal A-fib:
Continue Eliquis
On loading doses of amiodarone
JOON:
Reviewed kidney ultrasound
Avoid nephrotoxic
Nephrology consult appreciated
Monitor renal function closely
UTI:
E. coli in the urine culture pending sensitivity
Continue IV ceftriaxone 1 g daily and switch to oral over the next 24 hours or simply discontinue.
Probably hold off on SGLT2I for now
Sudden onset of dizziness and double vision on 03/31:
Resolved
she feels weak in general
Neurology evaluated the patient and MRI of the brain no acute ischemic finding
Hyponatremia:
Improving
Continue to monitor closely
Anemia:
Stable HGB
Continue to monitor closely
Leukocytosis:
Reactive and some element of infection
Trended down
Hypertension:
Antihypertensives with caution given shock status
Hyperlipidemia:
Continue home statin
Diabetes mellitus type 2:
Blood sugars relatively elevated and not at goal
Change diet to 1800 branden diabetic diet and low-cholesterol
Continue long-acting insulin with Lantus but will increase from 13 to 15 units yesterday and today will increase up to 20 units.
Continue NovoLog 5 units before each meal
Continue insulin sliding scale
Peripheral vascular disease:
On aspirin and statin
DVT prophylaxis:
Eliquis
CODE STATUS:
Full code
Total time spent on today's encounter was 55 minutes which included time spent in counseling the patient/family regarding diagnosis and treatment plan as listed above, goals of care, and symptom management. Case was discussed with nursing staff,
specialists, and care coordinators/case management. All labs and imaging personally reviewed by me. Remainder the time spent in detailed review of previous records, lab data, imaging, and other medical provider documentation.
Anticipated Discharge: > 48 hours
Subjective/Interval History
-
Date of Service: April 05, 2025
No chest pain
Mild sob
No headache
Objective Data
-
Labs:
Laboratory Results
04/05/25
02:12
WBC 9.2
Hgb 11.4 L
Hct 33.5 L
Plt Count 267 D
Sodium 135
Potassium 4.1
Chloride 100
Carbon Dioxide 26
BUN 60 H
Creatinine 1.5 H
Glucose 258 H
Calcium 9.4
Vital Signs:
Vital Signs
Temp Pulse Resp BP Pulse Ox
98 F 82 16 132/70 95
04/05/25 02:06 04/05/25 09:30 04/05/25 08:01 04/05/25 07:58 04/05/25 08:01
I&O
04/04/25 04/05/25 04/06/25
06:59 06:59 06:59
Intake Total 996 / 996
Output Total 2124 1850 / 185 350 / 350
Balance -2094 / -2094 -854 / -854 -350 / -350
--- NOTE | 2025-04-05 10:55 | W.PN.CARDCBS ---
Addendum entered and electronically signed by Radha Hernandez DO 04/06/25 01:34:
I saw and examined the patient.
The Signal Operator Technical's note was reviewed and I agree with the note.
Comment: Patient was seen and examined with with her 2 sisters at bedside. She is sitting out of bed to a chair and feels better. She denies dizziness or lightheadedness. She is still short of breath with activity but denies chest pain.
GEN: No distress, awake, Ox3, sitting in chair on room air
HEENT: mmm
LUNGS: Poor inspiratory effort secondary to cough, decreased breath sounds at bases, no wheezes/rales
CV: Reg, S1/S2, 1/6 syst murmur
ABD: soft, BS+, NT/ND
EXT: trace edema
Plan:
84-year-old female new patient to [facility] cardiology/Dr. Fields referred to the ER from the office 03/30/2025 with tachycardia and shortness of breath with acute HFrEF found to new cardiomyopathy with LV ejection fraction 22-35%, moderate to severe mitral
regurgitation, NSTEMI with multivessel coronary artery disease by left heart catheterization 04/01/2025 and PAT/PAF
Acute HFrEF, new diagnosis of severe LV systolic dysfunction with EF estimated less than 30% who presented in cardiogenic shock with elevated lactic acid placed on milrinone .
- Right heart catheterization 04/01/2025 reporting cardiac index 2 on milrinone 0.2mcg/kg/min with moderately elevated left ventricular filling pressures and a wedge pressure of 28 mmHg.
-Overall improving
- Milrinone stopped 04/04/2025
- Transition furosemide to 40 mg p.o. twice daily.
- Start Coreg 3.125mg BID
- Goal would be to eventually start GDMT, including JACKELYN or ARB, SGLT2 antagonist, and possibly even spironolactone. Will hold for now given recent acute renal insufficiency per recommendations of nephrology. Can reassess as an outpatient after
repeat labs. Nephrology is also recommended holding off SGLT2 inhibitor with suspected UTI
Multivessel coronary artery disease with peak troponin 1.83
-Appreciate CT surgery consult, felt to be a poor surgical candidate
-Plan for medical therapy of coronary artery disease with consideration of PCI if she fails medical therapy.
- Continue aspirin 81 mg daily, rosuvastatin 20 mg daily [LDL 35]
Rapid PAT/PAF and NSVT, currently in sinus rhythm
- Amiodarone loaded with 400 mg twice daily now reduced to 200 mg BID as of 04/04. Will plan to reduce amiodarone to 200 mg daily at time of discharge
-Start Coreg 3.125 mg twice daily
- Continue Eliquis 5 mg twice daily with close monitoring of renal function.
- TSH within normal limits
- Electrolytes stable, keep K greater than 4, mag greater than 2
Type 2 diabetes mellitus�management per hospitalist
UTI�treatment per hospitalist
Would have PT/OT reassessed patient given discharge planning is in works to see if she would qualify for home PT/OT. Also recommended patient go home with VN
Discharge planning.
Outpatient cardiac follow-up to be arranged
Original Note:
Today's Communication / Plan
-
Check chest x-ray given cough and decreased breath sounds at bases to reassess pleural effusions
PT/OT assessment
Continue amiodarone and Eliquis
Per nephrology hold on JACKELYN/ARB/ARNI or SGLT2 at this time
Consider adding low-dose beta-landen
Impression / Plan
-
Please see office note dated 03/30/25 to serve as H&P
Primary [facility]: Dr. ALEX Fields
Assessment:
Presentation 03/2025 with SOB, palpitations
Acute HFrEF
Paroxysmal atrial tachycardia/atrial fibrillation with RVR, new diagnosis of unclear duration, suspected paroxysmal
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
Cardiomyopathy, EF 35% by echo 02/2025
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
History of CVA 2023
Mod MR
DM2
HTN
HLD
PAD with prior occluded R SFA
ECHO 04/17/24: EF 55%, aortic sclerosis, mild to moderate MR
ECHO 03/05/25: EF 35%, septal dyskinesis consistent with bundle branch block, mild LVH with moderate to severe basal septal hypertrophy, grade 1 diastolic dysfunction, moderate MR, trace TR
Echo 03/31/2025: EF 22%, bilateral pleural effusions noted, MR worsened from moderate to severe, global hypokinesis with inferolateral, mid anteroseptal, anterior, lateral, apical akinesis, no sign of LV clot, mild to moderate LVH with septum
measuring 1.5 cm, mild TR, PAP 45 mmHg
Cardiac catheterization 04/01/2025: LM: Normal. LAD: Long 50 to 70% stenosis in mid portion beyond first diagonal extending into mid LAD beyond second diagonal. Circumflex: Tandem 50 and 60% stenosis in proximal and midportion. OM branch 50% mid
and 80% distal stenosis. RCA: 60 to 65% proximal stenosis. RPDA 60% proximal stenosis and RPL branch 80% stenosis
Plan:
84-year-old female new patient to [facility] cardiology/Dr. Fields referred to the ER from the office 03/30/2025 with tachycardia and shortness of breath with acute HFrEF found to new cardiomyopathy with LV ejection fraction 22-35%, moderate to severe mitral
regurgitation, NSTEMI with multivessel coronary artery disease by left heart catheterization 04/01/2025 and PAT/PAF
Acute HFrEF, new diagnosis of severe LV systolic dysfunction with EF estimated less than 30% who presented in cardiogenic shock with elevated lactic acid placed on milrinone .
- Right heart catheterization 04/01/2025 reporting cardiac index 2 on milrinone 0.2mcg/kg/min with moderately elevated left ventricular filling pressures and a wedge pressure of 28 mmHg.
- Milrinone stopped 04/04/2025
- Initially proBNP 13,000, repeat 50846> Weight down several lbs this admission and down 2 pounds overnight.
- Underwent IV diuresis now on oral Lasix 40 mg BID. JOON on CKD with improving with peak of 1.7 ( status post catheterization/dye load) now 1.5 04/06/2025
- Nephrology consult [outpatient lisinopril and metformin remain on hold]; renal ultrasound 04/03/2025 with small simple cyst of left lower pole and non-obstructing 0.8 cm left intrarenal calculus. No hydronephrosis.
- Per nephrology as of 04/05 would hold on initiating JACKELYN/ARB/ARNI/Aldactone. They are also recommending holding SGLT2 inhibitor until UTI has cleared
- Consider adding low-dose beta-landen as blood pressure seems like it is improving.
Multivessel coronary artery disease with peak troponin 1.83
-Appreciate CT surgery consult, felt to be a poor surgical candidate
- Discussions underway regarding high risk LAD PCI. As long as patient remains free of anginal symptoms would attempt titration of GDMT for CAD and LV dysfunction. If fails medical therapy would offer PCI of mid LAD and/or circumflex.
- Continue aspirin 81 mg daily, rosuvastatin 20 mg daily [LDL 35]
Rapid PAT/PAF, new diagnosis
- She is currently in sinus rhythm. However still having paroxysms of atrial fibrillation with rapid ventricular response on telemetry although these are improving. Also noted to have 9 beat run of NSVT 04/05/2025 in a.m.
- Amiodarone loaded with 400 mg twice daily now reduced to 200 mg BID as of 04/04. EKG demonstrates normal sinus rhythm with QTc 477 ms on 04/05/2025
- Initiated Eliquis 5 mg twice daily on 04/03/2025.. Creatinine now less than 1.5, age 84, weight 153. Will need close monitoring of creatinine. If should be consistently greater than 1.5 would require reduced dosing at 2.5 twice a day
- TSH within normal limits
- Electrolytes stable, keep K greater than 4, mag greater than 2
Type 2 diabetes mellitus�management per hospitalist
Would have PT/OT reassessed patient given discharge planning is in works to see if she would qualify for home PT/OT. Also recommended patient go home with VN
Progress Note - [facility]
Subjective
Date of Service: April 05, 2025
Patient seen and examined. Patient sitting in chair. Notes cough with attempting to take deep breaths. Still feels winded with activity.
Objective
Labs:
04/05/25 02:12
04/05/25 02:12
Labs
Hgb 11.4 g/dL (12.0-16.0) L 04/05/25 02:12
Hct 33.5 % (37.0-47.0) L 04/05/25 02:12
Plt Count 267 10^3/uL (130-400) D 04/05/25 02:12
PT 16.0 Sec (11.4-14.6) H 03/30/25 13:46
INR 1.26 03/30/25 13:46
APTT 84.3 Sec (23.4-35.0) H 04/03/25 12:10
Sodium 135 mmol/L (135-145) 04/05/25 02:12
Potassium 4.1 mmol/L (3.5-5.1) 04/05/25 02:12
BUN 60 mg/dl (7-17) H 04/05/25 02:12
Creatinine 1.5 mg/dL (0.6-1.0) H 04/05/25 02:12
Glucose 258 mg/dl (70-99) H 04/05/25 02:12
Vital Signs and I&O:
Vital Signs
Temp Pulse Resp BP Pulse Ox
98 F 82 16 132/70 95
04/05/25 02:06 04/05/25 09:30 04/05/25 08:01 04/05/25 07:58 04/05/25 08:01
Vital Signs
Temp Pulse Resp BP Pulse Ox
98 F 82 16 132/70 95
04/05/25 02:06 04/05/25 09:30 04/05/25 08:01 04/05/25 07:58 04/05/25 08:01
Intake & Output
04/03/25 04/04/25 04/05/25 04/06/25
06:59 06:59 06:59 06:59
Intake Total 240 / 240 996 / 996
Output Total 1300 / 1300 5 / 5 1850 / 1850 350 / 350
Balance -1060 / -1060 -2095 / -2095 -854 / -854 -350 / -350
Physical Exam
Physical Exam
GEN: No distress, awake, Ox3, sitting in chair on room air
HEENT: supple, anicteric, mmm
LUNGS: Poor inspiratory effort secondary to cough, decreased breath sounds at bases, no wheezes/rales
CV: Reg, S1/S2, 1/6 syst murmur, no rub or gallop
ABD: soft, BS+, NT/ND
EXT: No edema, clubbing or cyanosis
NEURO: Gross non-focal
SKIN: No rash, warm, dry, pink
--- NOTE | 2025-04-05 11:06 | CM ---
Reviewed chart. Met with Mrs. Santana to review discharge plans. She states prior to admission she resides alone in a one story home with one step to enter. She states prior to admission she was independent with ambulation and adls. She states she
does not have any DME in the home. She states she has a prescription plan. We reviewed [facility] and at this time he is declining [facility]NA Services. Will need to see her current functional level to see if she will have any skilled care needs.
Medical work-up in progress. The discharge plan is return home when medically stable.
[2025-04-05 12:06] LABS: Glucose - Point of Care 316 mg/dl (70-99)
[2025-04-05] MEDS: NOVOLOG FLEXPEN-LOW RESISTANCE 4 UNITS SC (12:08)
--- NOTE | 2025-04-05 14:36 | PTCARENOTE ---
patient sent to radiology on a stretcher
[2025-04-05 16:56] LABS: Glucose - Point of Care 270 mg/dl (70-99)
[2025-04-05] MEDS: STERILE WATER FOR INJECTION 10 ML IV (17:25)
[2025-04-05] MEDS: ROCEPHIN 1000 MG IV (17:25)
[2025-04-05] MEDS: SENOKOT-S 1 TABLET PO (17:26)
--- NOTE | 2025-04-05 20:15 | PTCARENOTE ---
Assumed care of patient at change of shift. AAOx3, VSS. Lungs clear with occasional non-productive cough. 98% on room air. Patient is forgetful, bed alarm maintained. Call lopez within reach.
[2025-04-05] MEDS: MIRALAX 17 GRAMS PO (22:34)
--- NOTE | 2025-04-05 22:35 | PTCARENOTE ---
Pt oob to Bathroom unable to have a bm, + flatus. Miralax given
[2025-04-05 22:36] LABS: Glucose - Point of Care 179 mg/dl (70-99)
[2025-04-06] VITALS (11 sets, daily range): BP systolic 98–135; BP diastolic 59–76; O2SAT 98; BMI 29.8
[2025-04-06] MEDS: DULCOLAX 10 MG RECTAL (04:50)
[2025-04-06 05:10] LABS: Blood Urea Nitrogen 47 mg/dl (7-17); Calcium 9.4 mg/dl (8.4-10.2); Carbon Dioxide 26 mmol/L (22-30); Chloride 99 mmol/L (98-107); Estimated Creatinine Clearance 29 ml/min; Glucose 207 mg/dl (70-99); Potassium 3.8 mmol/L (3.5-5.1); Sodium 135 mmol/L (135-145); eGFR 41.06
[2025-04-06] MEDS: LANTUS 0.2 UNITS SC (07:37)
[2025-04-06] MEDS: COREG 3.125 MG PO ×2 (07:37→20:37)
[2025-04-06] MEDS: CRESTOR 20 MG PO (07:37)
[2025-04-06] MEDS: NOVOLOG FLEXPEN 5 UNITS SC ×3 (07:37→17:10)
[2025-04-06] MEDS: ELIQUIS 5 MG PO ×2 (07:37→20:37)
[2025-04-06] MEDS: DESENEX/MITRAZOL/ZEASORB TOPICAL (07:37)
[2025-04-06] MEDS: PACERONE 200 MG PO ×2 (07:38→20:37)
[2025-04-06] MEDS: NOVOLOG FLEXPEN-LOW RESISTANCE 3 UNITS SC (07:38)
[2025-04-06] MEDS: LASIX 40 MG PO (07:38)
[2025-04-06 07:39] LABS: Glucose - Point of Care 265 mg/dl (70-99)
--- NOTE | 2025-04-06 08:00 | PTCARENOTE ---
Assumed care. Patient AO x3, forgetful at times. NSR BBB HR in the 80's. Decreased at bases b/l 99% on room air, dyspneic with walking in the room. Assisted to chair, alarms audible, call lopez in reach
--- NOTE | 2025-04-06 09:37 | W.PN.HOSP.TC ---
Today's Communication/Plan
-
dc if ok with cardiology
PT / OT is ordered
Assessment / Plan
Assessment / Plan
Physical exam:
General: Acutely ill
HEENT: Normocephalic, Atraumatic and Moist Mucous Membranes
Respiratory: no Coarse crackles in the bases; limited. Negative Wheezes, Rales or Rhonchi
Cardiac: Regular Rhythm and S1/S2
GI: Soft, Nontender and Nondistended
Musculoskeletal: No Clubbing, No Cyanosis and No Edema
Neuro: Awake, Alert and Oriented, no neurological deficits but generalized weakness
Psych: Calm
A/P:
Acute HFrEF:
She feels better
denies sob, no hypoxia.
No chest pain
s/p IV Lasix 40 mg twice a day
Echocardiogram shows EF of 22% (it was 35% prior) and other multiple abnormalities.
Appreciate cardiology help
PT OT eval
Per cardiology: Goal would be to eventually start GDMT, including JACKELYN or ARB, SGLT2 antagonist, and possibly even spironolactone. Will hold for now given recent acute renal insufficiency per recommendations of nephrology. Can reassess as an
outpatient after repeat labs. Nephrology is also recommended holding off SGLT2 inhibitor with suspected UTI
Acute NSTEMI with multivessel CAD:
Off heparin drip
Continue aspirin and statin
Started on low dose Coreg
Status post left heart cath and right heart cath on 04/01
Cardiogenic shock:
off milrinone drip
c/w Lasix
Paroxysmal A-fib:
Continue Eliquis
On loading doses of amiodarone, now change to 200 mg QD upon dc. Started on BB
JOON:
Reviewed kidney ultrasound
Avoid nephrotoxic
Nephrology consult appreciated
Monitored renal function closely
UTI:
E. coli in the urine culture pending sensitivity
s/p IV ceftriaxone 1 g daily and switch to oral upon dc.
Probably hold off on SGLT2I for now
Sudden onset of dizziness and double vision on 03/31:
Resolved
she feels weak in general
Neurology evaluated the patient and MRI of the brain no acute ischemic finding
Hyponatremia:
Improving
Continue to monitor closely
Anemia:
Stable HGB
Hyperlipidemia:
Continue home statin
Diabetes mellitus type 2:
Change diet to 1800 branden diabetic diet and low-cholesterol
Continue long-acting insulin with Lantus but will increase from 13 to 15 units yesterday and today will increase up to 20 units.
Continue NovoLog 5 units before each meal
Peripheral vascular disease:
On aspirin and statin
DVT prophylaxis:
Eliquis
CODE STATUS:
Full code
Total discharge time spent to see the patient, examined the patient, reviewed data and lab result, discuss discharge plan with patient, nursing staff around 65 minutes
Anticipated Discharge: Today
Subjective/Interval History
-
Date of Service: April 06, 2025
Doing well
No chest pain or sob
reports going to bathroom without dizziness
Objective Data
-
Labs:
Laboratory Results
04/06/25
04:26
Sodium 135
Potassium 3.8
Chloride 99
Carbon Dioxide 26
BUN 47 H
Creatinine 1.3 H
Glucose 207 H
Calcium 9.4
Vital Signs:
Vital Signs
Temp Pulse Resp BP Pulse Ox
97.2 F 72 18 133/64 97
04/06/25 07:40 04/06/25 07:40 04/06/25 07:40 04/06/25 07:36 04/06/25 07:40
I&O
04/05/25 04/06/25 04/07/25
06:59 06:59 06:59
Intake Total 996 / 996 360 / 360
Output Total 1850 / 1850 350 / 350
Balance -854 / -854
--- NOTE | 2025-04-06 11:27 | W.PN.NEPH.PH ---
Today's Communication / Plan
-
stable from discharge
Assessment/Plan
-
IMP:
Acute HFrEF
Echocardiogram shows EF of 22% (it was 35% prior)
Elevated troponin likely acute NSTEMI
Cardiogenic shock-On milrinone drip
Paroxysmal A-fib
JOON
Sudden onset of dizziness and double vision on 03/31
h/o CVA
Hyponatremia
Anemia
Leukocytosis
Hypertension
Hyperlipidemia
Diabetes mellitus type 2
Peripheral vascular disease
PLan:
A/w symp a flutter, CHF
LHC noted MVD but not surgical candidate
JOON-suspect CRS and diuretics, contrast exposure on 04/01
cr stable at 1.3
UA with pyuria and bact, 3+bld but no RBC on AC, urine fena not low, U cx GNB
sub nephrotic proteinuria 1.7gm/gm of cr need f/u as out pt
renal US no hydro, non obst stone of left kidney
Bp stable on milrinone, low dose hydralazine per cards
will wait addition of ACEI or ARB till cr improves, hold SGLT2I with suspected UTI
wt improving cont lasix , likely change to po in am
avoid nephrotoxins
mild hyponatremia , corrected normal
nephro or pcp f/u
d/w pt and sister
-
-
Date of Service: April 06, 2025
CC / HPI / ROS
-
Chief Complaint:
JOON
History of Present Illness:
cr stable at 1.5, non oliguric
Hemodynamically stable
Review of Systems:
still mild sob over all improving on RA
no n/v or cp
wieghts down
Labs
-
Labs:
WBC 9.2 10^3/uL (4.8-10.8) 04/05/25 02:12
RBC 3.91 10^6/uL (4.20-5.40) L 04/05/25 02:12
Hgb 11.4 g/dL (12.0-16.0) L 04/05/25 02:12
Hct 33.5 % (37.0-47.0) L 04/05/25 02:12
Plt Count 267 10^3/uL (130-400) D 04/05/25 02:12
Sodium 135 mmol/L (135-145) 04/06/25 04:26
Potassium 3.8 mmol/L (3.5-5.1) 04/06/25 04:26
Chloride 99 mmol/L (98-107) 04/06/25 04:26
Carbon Dioxide 26 mmol/L (22-30) 04/06/25 04:26
BUN 47 mg/dl (7-17) H 04/06/25 04:26
Creatinine 1.3 mg/dL (0.6-1.0) H 04/06/25 04:26
eGFR 41.06 04/06/25 04:26
Glucose 207 mg/dl (70-99) H 04/06/25 04:26
Calcium 9.4 mg/dl (8.4-10.2) 04/06/25 04:26
Toc-O-Gskqkljlubs Pept 69952 pg/ml 04/05/25 02:12
Albumin 4.5 g/dl (3.5-5.0) 03/30/25 13:46
Physical Exam
-
Vital Signs:
Vital Signs
Temp Pulse Resp BP Pulse Ox
97.2 F 74 18 133/64 97
04/06/25 07:40 04/06/25 09:30 04/06/25 07:40 04/06/25 07:36 04/06/25 07:40
Cardiovascular:: Regular rate and rhythm
Respiratory:: Bilateral: CTA (decrased)
Lung Excursion:: Normal
Abdomen:: Nontender and Soft
Extremity Edema:: +1: Bilateral:
Lomeli Catheter: No
--- NOTE | 2025-04-06 11:32 | CM ---
Reviewed chart. Met with Mrs. Santana and her sister to review discharge plans. Reviewed [facility]NA Services with hem. She is agreeable to [facility]NA Services and she has selected [facility]. Telephone call to [facility] to make the
referral. Sent the referral. Mrs. Santana states her sister will be staying with her when she goes home. Prior to admission she resides alone in a one story home with one step to enter. Prior to admission she was independent with ambulation and
adls. She does not have any DME in the home. She has a prescription plan. Will need to see her current functional level to see if she will have any skilled care needs. Medical work-up in progress. The discharge plan is to return home with her
sister staying with her and [facility] when medically stable.
[2025-04-06 12:27] LABS: Glucose - Point of Care 312 mg/dl (70-99)
[2025-04-06] MEDS: NOVOLOG FLEXPEN-LOW RESISTANCE 4 UNITS SC (12:53)
--- NOTE | 2025-04-06 14:34 | W.PN.CARDCBS ---
Addendum entered and electronically signed by Radha Hernandez DO 04/06/25 16:32:
I saw and examined the patient.
The Manager Nicu's note was reviewed and I agree with the note.
Comment: Patient was seen and examined sitting out of bed to chair. This morning she states that she feels fatigued with ongoing shortness of breath and a dry cough. Denies chest pain
GEN: No distress, awake, alert, oriented x3. sitting in chair
HEENT: mmm
LUNGS: Diminished BS, no wheezes, dry cough
CV: Reg, S1/S2, 2/6 murmur
ABD: soft, BS+, NT/ND
EXT: trace edema of B/L LE
Plan:
84-year-old female new patient to [facility] cardiology/Dr. Fields referred to the ER from the office 03/30/2025 with tachycardia and shortness of breath with acute HFrEF found to new cardiomyopathy with LV ejection fraction 22-35%, moderate to severe mitral
regurgitation, NSTEMI with multivessel coronary artery disease by left heart catheterization 04/01/2025 and PAT/PAF
Acute HFrEF, new diagnosis of severe LV systolic dysfunction with EF estimated less than 30% who presented in cardiogenic shock with elevated lactic acid placed on milrinone .
- Right heart catheterization 04/01/2025 reporting cardiac index 2 on milrinone 0.2mcg/kg/min with moderately elevated left ventricular filling pressures and a wedge pressure of 28 mmHg.
- Milrinone stopped 04/04/2025
-Ongoing shortness of breath and cough�no fevers or leukocytosis. Chest x-ray with interstitial pulmonary edema pattern and small bilateral pleural effusions as well as atelectasis and scarring.
-Will restart IV Lasix if okay with nephrology. Would also consider adding Aldactone this admission prior to discharge if renal function stays stable.
-Continue carvedilol 3.125 mg twice daily
- Goal would be to eventually start GDMT, including JACKELYN or ARB, SGLT2 antagonist, and possibly even spironolactone. Will hold for now given recent acute renal insufficiency per recommendations of nephrology. Can reassess as an outpatient after
repeat labs.
Multivessel coronary artery disease with peak troponin 1.83
-Appreciate CT surgery consult, felt to be a poor surgical candidate
-Plan for medical therapy of coronary artery disease with consideration of PCI if she fails medical therapy.
- Continue aspirin 81 mg daily, rosuvastatin 20 mg daily [LDL 35]
Rapid PAT/PAF and NSVT, currently in sinus rhythm
- Amiodarone loaded with 400 mg twice daily now reduced to 200 mg BID as of 04/04. Will plan to reduce amiodarone to 200 mg daily at time of discharge
- Coreg 3.125 mg twice daily
- Continue Eliquis 5 mg twice daily with close monitoring of renal function.
- TSH within normal limits
- Electrolytes stable, keep K greater than 4, mag greater than 2
Type 2 diabetes mellitus�management per hospitalist
UTI�treatment per hospitalist
Original Note:
Today's Communication / Plan
-
chest CT without contrast if able
po lasix 40mg BID
asa, eliquis
amiodarone 200mg BID for 2 weeks then 200mg daily
coreg 3.125mg BID
crestor 20mg QPM
Impression / Plan
-
Please see office note dated 03/30/25 to serve as H&P
Primary Luster Applicator: Dr. ALEX Fields
Assessment:
Presentation 03/2025 with SOB, palpitations
Acute HFrEF
Paroxysmal atrial tachycardia/atrial fibrillation with RVR, new diagnosis of unclear duration, suspected paroxysmal
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
Cardiomyopathy, EF 35% by echo 02/2025
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
History of CVA 2023
Mod MR
DM2
HTN
HLD
PAD with prior occluded R SFA
ECHO 04/17/24: EF 55%, aortic sclerosis, mild to moderate MR
ECHO 03/05/25: EF 35%, septal dyskinesis consistent with bundle branch block, mild LVH with moderate to severe basal septal hypertrophy, grade 1 diastolic dysfunction, moderate MR, trace TR
Echo 03/31/2025: EF 22%, bilateral pleural effusions noted, MR worsened from moderate to severe, global hypokinesis with inferolateral, mid anteroseptal, anterior, lateral, apical akinesis, no sign of LV clot, mild to moderate LVH with septum
measuring 1.5 cm, mild TR, PAP 45 mmHg
Cardiac catheterization 04/01/2025: LM: Normal. LAD: Long 50 to 70% stenosis in mid portion beyond first diagonal extending into mid LAD beyond second diagonal. Circumflex: Tandem 50 and 60% stenosis in proximal and midportion. OM branch 50% mid
and 80% distal stenosis. RCA: 60 to 65% proximal stenosis. RPDA 60% proximal stenosis and RPL branch 80% stenosis
Plan:
- She was seen in office 03/30 as a new patient and sent to ER as complained of shortness of breath, with heart rate in the 130s and echo from 03/05/2025 showing new EF of 35%
- complex from cardiac standpoint
- Troponin peaked at 1.7. No chest pain
- Repeat echo this admission with EF 22% and MR worsened from moderate to severe with bilateral pleural effusions noted
- required milrinone earlier in admission, CI was 2 on 04/01 while on milrinone, stopped 04/04
- Underwent cardiac catheterization 04/01/2025 with multivessel coronary disease involving LAD, circumflex, RCA. CT surgery consulted, but not felt to be a good surgical candidate. Could consider high risk LAD PCI if fails medical therapy, however
is largely asymptomatic without chest pain
-wedge at time of cath was 28. she did not diurese particularly well on lasix and remains with SOB particularly with exertion and dry cough, which are not improved from admission per patient. CXR 04/05 with small pleural effusion and evidence of
possible mild PNA. would consider for chest CT to eval lung parenchyma if able, as also with renal insufficiency, Cr 1.3 on 04/06. nephro following
- Outpatient metformin and lisinopril are also on hold
- has had both suspected atach as well as now PAF since admission. currently in SR on review of tele. continue amiodarone 200mg BID for 2 weeks then decrease to 200mg daily.
- Continue aspirin, eliquis. Will need close monitoring of creatinine in OP setting to ensure eliquis dose should not be decreased.
- continue coreg. GDMT of CM as able, however limited due to renal insufficiency.
- LDL 35. Continue Crestor.
- continue PT/OT
- discussed with nursing, hospitalist. discussed with family at bedside
Progress Note - Luster Applicator
Subjective
Date of Service: April 06, 2025
Remains with shortness of breath, dry cough, particularly with exertion
Objective
Labs:
04/05/25 02:12
04/06/25 04:26
Labs
Hgb 11.4 g/dL (12.0-16.0) L 04/05/25 02:12
Hct 33.5 % (37.0-47.0) L 04/05/25 02:12
Plt Count 267 10^3/uL (130-400) D 04/05/25 02:12
PT 16.0 Sec (11.4-14.6) H 03/30/25 13:46
INR 1.26 03/30/25 13:46
APTT 84.3 Sec (23.4-35.0) H 04/03/25 12:10
Sodium 135 mmol/L (135-145) 04/06/25 04:26
Potassium 3.8 mmol/L (3.5-5.1) 04/06/25 04:26
BUN 47 mg/dl (7-17) H 04/06/25 04:26
Creatinine 1.3 mg/dL (0.6-1.0) H 04/06/25 04:26
Glucose 207 mg/dl (70-99) H 04/06/25 04:26
Vital Signs and I&O:
Vital Signs
Temp Pulse Resp BP Pulse Ox
98.1 F 77 18 133/64 97
04/06/25 11:25 04/06/25 11:25 04/06/25 11:25 04/06/25 07:36 04/06/25 11:25
Vital Signs
Temp Pulse Resp BP Pulse Ox
98.1 F 77 18 133/64 97
04/06/25 11:25 04/06/25 11:25 04/06/25 11:25 04/06/25 07:36 04/06/25 11:25
Intake & Output
04/04/25 04/05/25 04/06/25 04/07/25
07:59 07:59 07:59 07:59
Intake Total / 996 / 996 360 / 360
Output Total 2125 / 2125 1850 / 1850 350 / 350 300 / 300
Balance -2095 / -2095 -854 / -854 -300 / -300
Physical Exam
Physical Exam
GEN: No distress, awake, alert, oriented x3. sitting in chair
HEENT: supple, anicteric, mmm, EOMI
LUNGS: Diminished BS, no wheezes, dry cough
CV: Reg, S1/S2, 2/6 murmur
ABD: soft, BS+, NT/ND
EXT: No cyanosis, clubbing. trace edema of B/L LE
NEURO: Gross non-focal
SKIN: Warm, pink, dry. No rash
[2025-04-06] MEDS: LASIX 40 MG IV (16:53)
[2025-04-06] MEDS: STERILE WATER FOR INJECTION 10 ML IV (16:53)
[2025-04-06] MEDS: ROCEPHIN 1000 MG IV (16:54)
[2025-04-06] MEDS: NOVOLOG FLEXPEN-LOW RESISTANCE 1 UNITS SC (17:09)
[2025-04-06 17:10] LABS: Glucose - Point of Care 195 mg/dl (70-99)
[2025-04-06] MEDS: LASIX PO (17:18)
[2025-04-06] MEDS: DESENEX/MITRAZOL/ZEASORB 1 APPLIC TOPICAL (20:37)
[2025-04-06 22:01] LABS: Glucose - Point of Care 200 mg/dl (70-99)
[2025-04-07] VITALS (9 sets, daily range): BP systolic 112–136; BP diastolic 51–78; O2SAT 99; BMI 29.1
[2025-04-07 05:01] LABS: Blood Urea Nitrogen 46 mg/dl (7-17); Calcium 9.0 mg/dl (8.4-10.2); Carbon Dioxide 29 mmol/L (22-30); Chloride 96 mmol/L (98-107); Estimated Creatinine Clearance 25 ml/min; Glucose 250 mg/dl (70-99); Potassium 4.0 mmol/L (3.5-5.1); Sodium 131 mmol/L (135-145); eGFR 34.58
[2025-04-07 08:13] LABS: Glucose - Point of Care 235 mg/dl (70-99)
[2025-04-07] MEDS: NOVOLOG FLEXPEN 5 UNITS SC ×3 (08:34→16:59)
[2025-04-07] MEDS: NOVOLOG FLEXPEN-LOW RESISTANCE 2 UNITS SC ×3 (08:34→17:00)
[2025-04-07] MEDS: LASIX 60 MG IV (08:35)
[2025-04-07] MEDS: ELIQUIS 5 MG PO (08:36)
[2025-04-07] MEDS: CRESTOR 20 MG PO (08:36)
[2025-04-07] MEDS: FLUSH (NSS) 1 FLUSH IV ×4 (08:36→20:38)
[2025-04-07] MEDS: COREG 3.125 MG PO ×2 (08:37→20:37)
[2025-04-07] MEDS: PACERONE 200 MG PO ×2 (08:37→20:37)
[2025-04-07] MEDS: LANTUS 0.2 UNITS SC (08:39)
--- NOTE | 2025-04-07 09:03 | W.PN.HOSP.TC ---
Today's Communication/Plan
-
Will work on discharge if possible
will do Ambulatory home O2 evaluation
Assessment / Plan
Assessment / Plan
Physical exam:
General: Acutely ill
HEENT: Normocephalic, Atraumatic and Moist Mucous Membranes
Respiratory: ; limited. Negative Wheezes, Rales or Rhonchi
Cardiac: Regular Rhythm and S1/S2
GI: Soft, Nontender and Nondistended
Musculoskeletal: No Clubbing, No Cyanosis and No Edema
Neuro: Awake, Alert and Oriented, no neurological deficits but generalized weakness
Psych: Calm
A/P:
Acute HFrEF:
She feels better
denies sob, no hypoxia. Her sob c/w advanced CHF, will do ambulatory O2 level. CT chest c/w interstitial edema.
No chest pain
s/p IV Lasix 40 mg twice a day
Echocardiogram shows EF of 22% (it was 35% prior) and other multiple abnormalities.
Appreciate cardiology help
PT OT eval
Per cardiology: Goal would be to eventually start GDMT, including JACKELYN or ARB, SGLT2 antagonist, and possibly even spironolactone. Will hold for now given recent acute renal insufficiency per recommendations of nephrology. Can reassess as an
outpatient after repeat labs. Nephrology is also recommended holding off SGLT2 inhibitor with suspected UTI
Acute NSTEMI with multivessel CAD:
Off heparin drip
Continue aspirin and statin
Started on low dose Coreg
Status post left heart cath and right heart cath on 04/01
Cardiogenic shock:
off milrinone drip
c/w Lasix
Incidental finding on CT
Left adrenal gland mass, with attenuation value suggesting a left adrenal adenoma with a high degree of confidence
I d/w pt, I recommend OP follow up with primary, likely need further images for left adrenal mass.
Paroxysmal A-fib:
Continue Eliquis
On loading doses of amiodarone, now change to 200 mg QD upon dc. Started on BB
JOON:
Reviewed kidney ultrasound
Avoid nephrotoxic
Nephrology consult appreciated
Monitored renal function closely
UTI:
E. coli in the urine culture pending sensitivity
s/p IV ceftriaxone 1 g daily and switch to oral upon dc.
Probably hold off on SGLT2I for now
Sudden onset of dizziness and double vision on 03/31:
Resolved
she feels weak in general
Neurology evaluated the patient and MRI of the brain no acute ischemic finding
Hyponatremia:
Improving
Continue to monitor closely
Anemia:
Stable HGB
Hyperlipidemia:
Continue home statin
Diabetes mellitus type 2:
Change diet to 1800 branden diabetic diet and low-cholesterol
Continue long-acting insulin with Lantus but will increase from 13 to 15 units yesterday and today will increase up to 20 units.
Continue NovoLog 5 units before each meal
Peripheral vascular disease:
On aspirin and statin
DVT prophylaxis:
Eliquis
CODE STATUS:
Full code
Total discharge time spent to see the patient, examined the patient, reviewed data and lab result, discuss discharge plan with patient, nursing staff around 65 minutes
Anticipated Discharge: Today
Subjective/Interval History
-
Date of Service: April 07, 2025
No chest pain
No sob while resting
Objective Data
-
Labs:
Laboratory Results
04/07/25
04:24
Sodium 131 L
Potassium 4.0
Chloride 96 L
Carbon Dioxide 29
BUN 46 H
Creatinine 1.5 H
Glucose 250 H
Calcium 9.0
Vital Signs:
Vital Signs
Temp Pulse Resp BP Pulse Ox
97.4 F 72 20 116/62 98
04/07/25 07:37 04/07/25 08:37 04/07/25 07:37 04/07/25 08:37 04/07/25 07:37
I&O
04/06/25 04/07/25 04/08/25
06:59 06:59 06:59
Intake Total 360 / 360 720 / 720
Output Total 350 / 350 1550 / 1550 200 / 200
Balance -830 / -830 -200 / -200
--- NOTE | 2025-04-07 10:10 | W.PN.CARDCBS ---
Addendum entered and electronically signed by Nishant Negron MD 04/07/25 13:10:
I saw and examined the patient.
The Replenishment Associate's note was reviewed and I agree with the note.
Comment: Briefly, 84-year-old woman with newly identified ischemic cardiomyopathy with severely reduced ejection fraction (LVEF 20-25%) who presented with acute decompensated heart failure. Patient was empirically started on milrinone with concern
for low flow state which has subsequently been weaned off. Underwent left and right heart catheterization which identified multivessel CAD. Evaluated by CT surgery and was not felt to be an operative candidate. Plan at this point is for therapy
of CAD.
In regards to her heart failure tells me she feels significantly better and dyspnea on exertion has resolved with IV diuresis
Weight is down and renal function remains relatively stable
Close to transitioning to oral Lasix, likely in the next 24 hours, tentative plan for home O2 eval
Continue Coreg. Marginal blood pressure and renal function limits additional GDMT.
Continue aspirin, high intensity statin and beta-landen for newly identified multivessel CAD
At the time of admission patient was found to be in atrial tachycardia/atrial flutter
New to amiodarone to maintain sinus rhythm. Continue 200 mg twice daily for 1 month then decrease to 200 mg daily.
Eliquis 2.5 mg twice daily due to age and renal function
Tentative plan for discharge later today or tomorrow
We will arrange for close outpatient follow-up
Original Note:
Today's Communication / Plan
-
assess response to IV lasix
eval for home O2
follow Cr
decrease eliquis to 2.5mg BID
high risk for readmission
would favor DC in AM
Impression / Plan
-
Please see office note dated 03/30/25 to serve as H&P
Primary Evaluation Manager: Dr. ALEX Fields
Assessment:
Presentation 03/2025 with SOB, palpitations
Acute HFrEF
Paroxysmal atrial tachycardia/atrial fibrillation with RVR, new diagnosis of unclear duration, suspected paroxysmal
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
Cardiomyopathy, EF 35% by echo 02/2025
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
History of CVA 2023
Mod MR
DM2
HTN
HLD
PAD with prior occluded R SFA
ECHO 04/17/24: EF 55%, aortic sclerosis, mild to moderate MR
ECHO 03/05/25: EF 35%, septal dyskinesis consistent with bundle branch block, mild LVH with moderate to severe basal septal hypertrophy, grade 1 diastolic dysfunction, moderate MR, trace TR
Echo 03/31/2025: EF 22%, bilateral pleural effusions noted, MR worsened from moderate to severe, global hypokinesis with inferolateral, mid anteroseptal, anterior, lateral, apical akinesis, no sign of LV clot, mild to moderate LVH with septum
measuring 1.5 cm, mild TR, PAP 45 mmHg
Cardiac catheterization 04/01/2025: LM: Normal. LAD: Long 50 to 70% stenosis in mid portion beyond first diagonal extending into mid LAD beyond second diagonal. Circumflex: Tandem 50 and 60% stenosis in proximal and midportion. OM branch 50% mid
and 80% distal stenosis. RCA: 60 to 65% proximal stenosis. RPDA 60% proximal stenosis and RPL branch 80% stenosis
Plan:
- She was seen in office 03/30 as a new patient and sent to ER as complained of shortness of breath, with heart rate in the 130s and echo from 03/05/2025 showing new EF of 35%
- complex from cardiac standpoint
- Troponin peaked at 1.7. No chest pain
- Repeat echo this admission with EF 22% and MR worsened from moderate to severe with bilateral pleural effusions noted
- required milrinone earlier in admission, CI was 2 on 04/01 while on milrinone, stopped 04/04
- Underwent cardiac catheterization 04/01/2025 with multivessel coronary disease involving LAD, circumflex, RCA. CT surgery consulted, but not felt to be a good surgical candidate. Could consider high risk LAD PCI if fails medical therapy, however
is largely asymptomatic without chest pain and LAD disease is diffuse
- wedge at time of cath 04/01 was 28. she did not diurese particularly well on lasix earlier in admission. chest CT with evidence of continued CHF/pleural effusions. she was given IV lasix 40mg last evening with improvement. received 60mg IV lasix
this AM. Cr up slightly to 1.5, follow
- Outpatient metformin and lisinopril are also on hold
- has had both suspected atach as well as now PAF since admission. currently in SR on review of tele. continue amiodarone 200mg BID for 2 weeks then decrease to 200mg daily.
- Continue asa, eliquis at decreased dose of 2.5mg BID given age >80, Cr 1.5. will need to monitor in OP setting
- continue coreg. GDMT of CM as able, however limited due to renal insufficiency.
- LDL 35. Continue Crestor.
- continue PT/OT
- assess for home O2
- she is felt to be high risk for readmission and patient does not seem to understand severity of illness. she will have VN upon DC and sister will be staying with her, she lives in a [place]. would favor DC to home in AM. sister favors this as well
- discussed with nursing, hospitalist. discussed with sister Andres via telephone for 6:39.
Progress Note - Evaluation Manager
Subjective
Date of Service: April 07, 2025
patient reports feeling breathing improved. still SOB with exertion and dry cough at times
Objective
Labs:
04/05/25 02:12
04/07/25 04:24
Labs
Hgb 11.4 g/dL (12.0-16.0) L 04/05/25 02:12
Hct 33.5 % (37.0-47.0) L 04/05/25 02:12
Plt Count 267 10^3/uL (130-400) D 04/05/25 02:12
PT 16.0 Sec (11.4-14.6) H 03/30/25 13:46
INR 1.26 03/30/25 13:46
APTT 84.3 Sec (23.4-35.0) H 04/03/25 12:10
Sodium 131 mmol/L (135-145) L 04/07/25 04:24
Potassium 4.0 mmol/L (3.5-5.1) 04/07/25 04:24
BUN 46 mg/dl (7-17) H 04/07/25 04:24
Creatinine 1.5 mg/dL (0.6-1.0) H 04/07/25 04:24
Glucose 250 mg/dl (70-99) H 04/07/25 04:24
Vital Signs and I&O:
Vital Signs
Temp Pulse Resp BP Pulse Ox
97.4 F 79 20 116/62 98
04/07/25 07:37 04/07/25 09:30 04/07/25 07:37 04/07/25 08:37 04/07/25 08:30
Vital Signs
Temp Pulse Resp BP Pulse Ox
97.4 F 79 20 116/62 98
04/07/25 07:37 04/07/25 09:30 04/07/25 07:37 04/07/25 08:37 04/07/25 08:30
Intake & Output
04/05/25 04/06/25 04/07/25 04/08/25
07:59 07:59 07:59 07:59
Intake Total 996 / 996 360 / 360 720 / 720
Output Total 1850 / 1850 350 / 350 1550 / 1550 200 / 200
Balance -854 / -854 -830 / -830 -200 / -200
Physical Exam
Physical Exam
GEN: No distress, awake, alert, oriented x3. sitting in chair
HEENT: supple, anicteric, mmm, EOMI
LUNGS: Diminished BS, no wheezes
CV: Reg, S1/S2, 2/6 murmur
ABD: soft, BS+, NT/ND
EXT: No cyanosis, clubbing. trace edema of B/L LE
NEURO: Gross non-focal
SKIN: Warm, pink, dry. No rash
--- NOTE | 2025-04-07 10:17 | PTCARENOTE ---
received patient this am sitting on side of bed eating dinner, oriented to person and date, carries on a conversation but forgetful. patient NIH is a 0. bed alarm remains on. INT x 2 both flush well. +1 pitting edema bilaterally noted, good
pedal pulses. lung damian diminished on RA o2 sat in the upper 90's. monitor shows NSR with BBC, VSS. call lopez within reach.
--- NOTE | 2025-04-07 10:30 | CM ---
Reviewed chart. Met with Mrs. Santana to review discharge plans. She states she is feeling better and maybe able to go hoe soon. We reviewed [facility] with [facility] and she is agreeable to [facility]. Prior to admission she
resides alone in a one story home with one step to enter. Prior to admission she was independent with ambulation and adls. She does not have any DME in the home. She has a prescription plan. Will need to see her current functional level to see
if she will have any skilled care needs. Medical work-up in progress. The discharge plan is to return home with her sister staying with her and [facility] when medically stable.
[2025-04-07] MEDS: DESENEX/MITRAZOL/ZEASORB 1 APPLIC TOPICAL ×2 (10:46→20:34)
[2025-04-07 11:36] LABS: Glucose - Point of Care 214 mg/dl (70-99)
--- NOTE | 2025-04-07 12:42 | W.PN.NEPH.PH ---
Today's Communication / Plan
-
cont IV lasix still , follow lab s
Assessment/Plan
-
IMP:
Acute HFrEF
Echocardiogram shows EF of 22% (it was 35% prior)
Elevated troponin likely acute NSTEMI
Cardiogenic shock-On milrinone drip
Paroxysmal A-fib
JOON
Sudden onset of dizziness and double vision on 03/31
h/o CVA
Hyponatremia
Anemia
Leukocytosis
Hypertension
Hyperlipidemia
Diabetes mellitus type 2
Peripheral vascular disease
PLan:
A/w symp a flutter, CHF
LHC noted MVD but not surgical candidate
JOON-suspect CRS and diuretics, contrast exposure on 04/01
cr up at 1.5, baseline 0.8-1
UA with pyuria and bact, 3+bld but no RBC on AC, urine fena not low, U cx GNB
sub nephrotic proteinuria 1.7gm/gm of cr need f/u as out pt felt to be from DM
renal US no hydro, non obst stone of left kidney
Bp stable on low dose coreg per cards
will wait addition of ACEI or ARB till cr improves, hold SGLT2I with suspected UTI
wt no sig change and CT chest noted still with edema would cont lasix IV
we may have to compromise higher cr to maintain her vol status
avoid nephrotoxins
mild hyponatremia , corrected normal
nephro and pcp f/u
Left adrenal gland mass, with attenuation value suggesting a left adrenal adenoma with a high degree of confidence-incidental finding on CT-need eval out pt.
d/c plan per cards and primary
-
-
Date of Service: April 07, 2025
CC / HPI / ROS
-
Chief Complaint:
JOON
History of Present Illness:
cr stable at 1.5, non oliguric
Hemodynamically stable
Review of Systems:
still mild sob on exertion
no n/v or cp
wieghts no change
Labs
-
Labs:
WBC 9.2 10^3/uL (4.8-10.8) 04/05/25 02:12
RBC 3.91 10^6/uL (4.20-5.40) L 04/05/25 02:12
Hgb 11.4 g/dL (12.0-16.0) L 04/05/25 02:12
Hct 33.5 % (37.0-47.0) L 04/05/25 02:12
Plt Count 267 10^3/uL (130-400) D 04/05/25 02:12
Sodium 131 mmol/L (135-145) L 04/07/25 04:24
Potassium 4.0 mmol/L (3.5-5.1) 04/07/25 04:24
Chloride 96 mmol/L (98-107) L 04/07/25 04:24
Carbon Dioxide 29 mmol/L (22-30) 04/07/25 04:24
BUN 46 mg/dl (7-17) H 04/07/25 04:24
Creatinine 1.5 mg/dL (0.6-1.0) H 04/07/25 04:24
eGFR 34.58 04/07/25 04:24
Glucose 250 mg/dl (70-99) H 04/07/25 04:24
Calcium 9.0 mg/dl (8.4-10.2) 04/07/25 04:24
Zae-R-Aemznsdtdkd Pept 14709 pg/ml 04/05/25 02:12
Albumin 4.5 g/dl (3.5-5.0) 03/30/25 13:46
Physical Exam
-
Vital Signs:
Vital Signs
Temp Pulse Resp BP Pulse Ox
97.4 F 79 20 116/62 98
04/07/25 11:04 04/07/25 09:30 04/07/25 11:04 04/07/25 08:37 04/07/25 11:04
Cardiovascular:: Regular rate and rhythm
Respiratory:: Bilateral: CTA (decrased)
Lung Excursion:: Normal
Abdomen:: Nontender and Soft
Extremity Edema:: +1: Bilateral: (trace)
Lomeli Catheter: No
[2025-04-07] MEDS: SENOKOT-S 1 TABLET PO (14:06)
[2025-04-07] MEDS: MIRALAX 17 GRAMS PO (14:06)
--- NOTE | 2025-04-07 14:08 | PTCARENOTE ---
Patient c/o constipation, miralax and Senokot given as ordered.
[2025-04-07] MEDS: ROCEPHIN 1000 MG IV (16:55)
[2025-04-07] MEDS: STERILE WATER FOR INJECTION 10 ML IV (16:55)
[2025-04-07 17:03] LABS: Glucose - Point of Care 245 mg/dl (70-99)
[2025-04-07] MEDS: ELIQUIS 2.5 MG PO (20:34)
[2025-04-07 22:15] LABS: Glucose - Point of Care 227 mg/dl (70-99)
--- NOTE | 2025-04-07 23:23 | PTCARENOTE ---
Received pt at change of shift OOB in chair. AAOx3, forgetful @x's. Bed/chair alarm on and audible. NIH score of 0. SR w/ BBBC on tele, HR 70's. pt SANTANA, sats 95% on RA. c/o dizziness @x's. Fall risk precautions maintained. Encouraged pt to call RN
for assistance ambulating, call lopez within reach.
[2025-04-08] VITALS (9 sets, daily range): BP systolic 106–134; BP diastolic 61–90; PULSE 68; O2SAT 98; BMI 30.1
[2025-04-08 04:45] LABS: Hematocrit 33.9 % (37.0-47.0); Hemoglobin 11.3 g/dL (12.0-16.0); Mean Corp Hgb Conc. 33.3 g/dL (33.0-37.0); Mean Corpuscular Volume 86.9 fL (81.0-99.0); Platelet Count 269 10^3/uL (130-400); Red Cell Dist. Width 13.1 % (11.5-14.5)
[2025-04-08 05:12] LABS: Blood Urea Nitrogen 48 mg/dl (7-17); Calcium 9.1 mg/dl (8.4-10.2); Carbon Dioxide 27 mmol/L (22-30); Chloride 97 mmol/L (98-107); Estimated Creatinine Clearance 29 ml/min; Glucose 194 mg/dl (70-99); Potassium 4.2 mmol/L (3.5-5.1); Sodium 131 mmol/L (135-145); eGFR 41.06
[2025-04-08 07:11] LABS: Glucose - Point of Care 279 mg/dl (70-99)
[2025-04-08] MEDS: COREG 3.125 MG PO ×2 (08:14→19:42)
[2025-04-08] MEDS: CRESTOR 20 MG PO (08:14)
[2025-04-08] MEDS: ELIQUIS 2.5 MG PO ×2 (08:15→19:42)
[2025-04-08] MEDS: LOW STRENGTH ASPIRIN 81 MG PO (08:15)
[2025-04-08] MEDS: PACERONE 200 MG PO ×2 (08:15→19:47)
[2025-04-08] MEDS: DESENEX/MITRAZOL/ZEASORB 1 APPLIC TOPICAL ×2 (08:15→19:47)
[2025-04-08] MEDS: LASIX 60 MG IV ×2 (08:15→15:47)
[2025-04-08] MEDS: NOVOLOG FLEXPEN 5 UNITS SC ×3 (08:24→17:25)
[2025-04-08] MEDS: LANTUS 0.2 UNITS SC (08:24)
[2025-04-08] MEDS: NOVOLOG FLEXPEN-LOW RESISTANCE 3 UNITS SC ×2 (08:25→17:25)
--- NOTE | 2025-04-08 09:03 | W.PN.HOSP.TC ---
Today's Communication/Plan
-
Await dc planning per cardiology & nephrology
Might need SNF if unable to dc
Assessment / Plan
Assessment / Plan
Physical exam:
General: Acutely ill
HEENT: Normocephalic, Atraumatic and Moist Mucous Membranes
Respiratory: ; limited. Negative Wheezes, Rales or Rhonchi
Cardiac: Regular Rhythm and S1/S2
GI: Soft, Nontender and Nondistended
Musculoskeletal: No Clubbing, No Cyanosis and No Edema
Neuro: Awake, Alert and Oriented, no neurological deficits but generalized weakness
Psych: Calm
A/P:
Acute HFrEF:
She feels better
denies sob, no hypoxia. Her sob c/w advanced CHF, will do ambulatory O2 level. CT chest c/w interstitial edema.
No chest pain
s/p IV Lasix 40 mg twice a day
Echocardiogram shows EF of 22% (it was 35% prior) and other multiple abnormalities.
Appreciate cardiology help
PT OT eval
Per cardiology: Goal would be to eventually start GDMT, including JACKELYN or ARB, SGLT2 antagonist, and possibly even spironolactone. Will hold for now given recent acute renal insufficiency per recommendations of nephrology. Can reassess as an
outpatient after repeat labs. Nephrology is also recommended holding off SGLT2 inhibitor with suspected UTI
Acute NSTEMI with multivessel CAD:
Off heparin drip
Continue aspirin and statin
Started on low dose Coreg
Status post left heart cath and right heart cath on 04/01
Cardiogenic shock:
off milrinone drip
c/w Lasix
Incidental finding on CT
Left adrenal gland mass, with attenuation value suggesting a left adrenal adenoma with a high degree of confidence
I d/w pt, I recommend OP follow up with primary, likely need further images for left adrenal mass.
Paroxysmal A-fib:
Continue Eliquis
On loading doses of amiodarone, now change to 200 mg QD upon dc. Started on BB
JOON:
Reviewed kidney ultrasound
Avoid nephrotoxic
Nephrology consult appreciated
Monitored renal function closely
UTI:
E. coli in the urine culture pending sensitivity
s/p IV ceftriaxone 1 g daily and switch to oral upon dc.
Probably hold off on SGLT2I for now
Sudden onset of dizziness and double vision on 03/31:
Resolved
she feels weak in general
Neurology evaluated the patient and MRI of the brain no acute ischemic finding
Hyponatremia:
Improving
Continue to monitor closely
Anemia:
Stable HGB
Hyperlipidemia:
Continue home statin
Diabetes mellitus type 2:
Change diet to 1800 branden diabetic diet and low-cholesterol
Continue long-acting insulin with Lantus but will increase from 13 to 15 units yesterday and today will increase up to 20 units.
Continue NovoLog 5 units before each meal
Peripheral vascular disease:
On aspirin and statin
DVT prophylaxis:
Eliquis
CODE STATUS:
Full code
Total time spent to see the patient, examined the patient, reviewed data and lab result, discuss treatment plan with patient, nursing staff around 45 minutes
Anticipated Discharge: Within 24 hours
Subjective/Interval History
-
Date of Service: April 08, 2025
Feels better
No chest pain
No fevers
Objective Data
-
Labs:
Laboratory Results
04/08/25
04:10
WBC 8.3
Hgb 11.3 L
Hct 33.9 L
Plt Count 269
Sodium 131 L
Potassium 4.2
Chloride 97 L
Carbon Dioxide 27
BUN 48 H
Creatinine 1.3 H
Glucose 194 H
Calcium 9.1
Vital Signs:
Vital Signs
Temp Pulse Resp BP Pulse Ox
97.5 F 77 20 123/75 97
04/08/25 07:07 04/08/25 08:30 04/08/25 07:07 04/08/25 08:15 04/08/25 07:07
I&O
04/07/25 04/08/25 04/09/25
06:59 06:59 06:59
Intake Total 720 / 720 360 / 360
Output Total 1550 / 1550 750 / 750
Balance -830 / -830 -390 / -390
--- NOTE | 2025-04-08 10:34 | W.PN.CARDCBS ---
Addendum entered and electronically signed by Abdulaziz Gonzales MD 04/08/25 11:01:
I saw and examined the patient.
The Administrative Office Assistant's note was reviewed and I agree with the note.
Comment:
GEN: No distress, awake, Ox3
HEENT: supple, anicteric, mmm
LUNGS: scatt rhonchi
CV: Reg, S1/S2, 2/6 AHSM, S3+
ABD: soft, BS+, NT/ND
EXT: No edema
NEURO: Gross non-focal
SKIN: No rash
PLan:
Continues to feel short of breath. Weight is minimally improved. Will increase Lasix to 60 mg IV twice daily.
Creatinine has improved and is down to 1.3. Continue to follow.
If blood pressure and creatinine function remains stable tomorrow we will try to add some afterload reduction including restarting her lisinopril.
Will repeat echo in a.m. to reevaluate her LVEF and mitral regurgitation.
Continue medical therapy for severe coronary artery disease. Continue aspirin, Coreg, and rosuvastatin.
If she fails medical therapy would need to reconsider PCI.
She clearly will be high risk for readmission.
Original Note:
Today's Communication / Plan
-
continue IV lasix, increased to 60mg BID
follow Cr
assess for home O2
in SR
limited echo in AM
Impression / Plan
-
Please see office note dated 03/30/25 to serve as H&P
Primary Attending Radiologist: Dr. ALEX Fields
Assessment:
Presentation 03/2025 with SOB, palpitations
Acute HFrEF
Paroxysmal atrial tachycardia/atrial fibrillation with RVR, new diagnosis of unclear duration, suspected paroxysmal
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
Cardiomyopathy, EF 35% by echo 02/2025
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
History of CVA 2023
Mod MR
DM2
HTN
HLD
PAD with prior occluded R SFA
ECHO 04/17/24: EF 55%, aortic sclerosis, mild to moderate MR
ECHO 03/05/25: EF 35%, septal dyskinesis consistent with bundle branch block, mild LVH with moderate to severe basal septal hypertrophy, grade 1 diastolic dysfunction, moderate MR, trace TR
Echo 03/31/2025: EF 22%, bilateral pleural effusions noted, MR worsened from moderate to severe, global hypokinesis with inferolateral, mid anteroseptal, anterior, lateral, apical akinesis, no sign of LV clot, mild to moderate LVH with septum
measuring 1.5 cm, mild TR, PAP 45 mmHg
Cardiac catheterization 04/01/2025: LM: Normal. LAD: Long 50 to 70% stenosis in mid portion beyond first diagonal extending into mid LAD beyond second diagonal. Circumflex: Tandem 50 and 60% stenosis in proximal and midportion. OM branch 50% mid
and 80% distal stenosis. RCA: 60 to 65% proximal stenosis. RPDA 60% proximal stenosis and RPL branch 80% stenosis
Plan:
- She was seen in office 03/30 as a new patient and sent to ER as complained of shortness of breath, with heart rate in the 130s and echo from 03/05/2025 showing new EF of 35%
- complex from cardiac standpoint
- Troponin peaked at 1.7. No chest pain
- Repeat echo this admission with EF 22% and MR worsened from moderate to severe with bilateral pleural effusions noted
- required milrinone earlier in admission, CI was 2 on 04/01 while on milrinone, stopped 04/04
- Underwent cardiac catheterization 04/01/2025 with multivessel coronary disease involving LAD, circumflex, RCA. CT surgery consulted, but not felt to be a good surgical candidate. Could consider high risk LAD PCI if fails medical therapy, however
is largely asymptomatic without chest pain and LAD disease is diffuse
- wedge at time of cath 04/01 was 28. she did not diurese particularly well on lasix earlier in admission and proBNP had trended up. chest CT 04/06 with evidence of continued CHF/pleural effusions. remains with SOB/SANTANA. will attempt to aggressively
diurese. will order additional dose of IV lasix 60mg for this afternoon. Cr stable at 1.3
- Outpatient metformin and lisinopril are also on hold
- assess for home O2
- repeat limited echo in AM to reassess EF and MR.
- has had both suspected atach as well as now PAF since admission. currently in SR on review of tele. continue amiodarone 200mg BID for 2 weeks then decrease to 200mg daily.
- Continue asa, eliquis at decreased dose of 2.5mg BID given age >80, Cr 1.5. will need to monitor in OP setting
- continue coreg. GDMT of CM as able, however limited due to renal insufficiency.
- LDL 35. Continue Crestor.
- continue PT/OT
- she is felt to be high risk for readmission and patient does not seem to understand severity of illness. she will have VN upon DC and sister will be staying with her, she lives in a [place]. she is walking 150 feet with supervision per PT notes
- discussed with nursing, CM
Progress Note - Attending Radiologist
Subjective
Date of Service: April 08, 2025
reports continued SANTANA
Objective
Labs:
04/08/25 04:10
04/08/25 04:10
Labs
Hgb 11.3 g/dL (12.0-16.0) L 04/08/25 04:10
Hct 33.9 % (37.0-47.0) L 04/08/25 04:10
Plt Count 269 10^3/uL (130-400) 04/08/25 04:10
PT 16.0 Sec (11.4-14.6) H 03/30/25 13:46
INR 1.26 03/30/25 13:46
APTT 84.3 Sec (23.4-35.0) H 04/03/25 12:10
Sodium 131 mmol/L (135-145) L 04/08/25 04:10
Potassium 4.2 mmol/L (3.5-5.1) 04/08/25 04:10
BUN 48 mg/dl (7-17) H 04/08/25 04:10
Creatinine 1.3 mg/dL (0.6-1.0) H 04/08/25 04:10
Glucose 194 mg/dl (70-99) H 04/08/25 04:10
Vital Signs and I&O:
Vital Signs
Temp Pulse Resp BP Pulse Ox
97.5 F 77 20 123/75 97
04/08/25 07:07 04/08/25 08:30 04/08/25 07:07 04/08/25 08:15 04/08/25 07:07
Vital Signs
Temp Pulse Resp BP Pulse Ox
97.5 F 77 20 123/75 97
04/08/25 07:07 04/08/25 08:30 04/08/25 07:07 04/08/25 08:15 04/08/25 07:07
Intake & Output
04/06/25 04/07/25 04/08/25 04/09/25
07:59 07:59 07:59 07:59
Intake Total 360 / 360 720 / 720 360 / 360
Output Total 350 / 350 1550 / 1550 750 / 750 375 / 375
Balance -830 / -830 -390 / -390 -375 / -375
Physical Exam
Physical Exam
GEN: No distress, awake, alert, oriented x3. sitting in chair
HEENT: supple, anicteric, mmm, EOMI
LUNGS: Diminished BS, no wheezes
CV: Reg, S1/S2, 2/6 murmur
ABD: soft, BS+, NT/ND
EXT: No cyanosis, clubbing. 1+ edema of B/L LE
NEURO: Gross non-focal
SKIN: Warm, pink, dry. No rash
[2025-04-08 12:42] LABS: Glucose - Point of Care 239 mg/dl (70-99)
--- NOTE | 2025-04-08 12:54 | CM ---
Reviewed chart. Met with Mrs. Torres and her sister to review discharge plans. She states she is feeling okay. We reviewed [facility] with her. She is agreeable to [facility]. Prior to admission she resides alone in a one story home with
one step to enter. Prior to admission she was independent with ambulation and adls. She does not have any DME in the home. She has a prescription plan. Will need to see her current functional level to see if she will have any skilled care
needs. Medical work-up in progress. The discharge plan is to return home with her sister staying with her and [facility] when medically stable.
--- NOTE | 2025-04-08 13:13 | W.PN.NEPH.PH ---
Today's Communication / Plan
-
see plan , may add metolazone
Assessment/Plan
-
IMP:
Acute HFrEF
Echocardiogram shows EF of 22% (it was 35% prior)
Elevated troponin likely acute NSTEMI
Cardiogenic shock-On milrinone drip
Paroxysmal A-fib
JOON
Sudden onset of dizziness and double vision on 03/31
h/o CVA
Hyponatremia
Anemia
Leukocytosis
Hypertension
Hyperlipidemia
Diabetes mellitus type 2
Peripheral vascular disease
PLan:
A/w symp a flutter, CHF
LHC noted MVD but not surgical candidate
JOON-suspect CRS and diuretics, contrast exposure on 04/01
cr better at 1.3, baseline 0.8-1
UA with pyuria and bact, 3+bld but no RBC on AC, urine fena not low, U cx GNB
sub nephrotic proteinuria 1.7gm/gm of cr need f/u as out pt felt to be from DM
renal US no hydro, non obst stone of left kidney
Bp stable on low dose coreg per cards
will wait addition of ACEI or ARB till cr stabilizes, hold SGLT2I with suspected UTI
wt up today and CT chest 04/06 noted still with edema would cont lasix IV
dose increased today to 60 BID< if no sig response may add metolazone
we may have to compromise higher cr to maintain her vol status
avoid nephrotoxins
mild hyponatremia from hypervolemia
d/w pt, nursing and cards
Left adrenal gland mass, with attenuation value suggesting a left adrenal adenoma with a high degree of confidence-incidental finding on CT-need eval out pt.
d/c plan hopefully when resp symp improve
-
-
Date of Service: April 08, 2025
CC / HPI / ROS
-
Chief Complaint:
JOON
History of Present Illness:
cr better at 1.3, non oliguric
Hemodynamically stable
sodium low 131
wt is up today
Review of Systems:
still mild sob on exertion
no n/v or cp
Labs
-
Labs:
WBC 8.3 10^3/uL (4.8-10.8) 04/08/25 04:10
RBC 3.90 10^6/uL (4.20-5.40) L 04/08/25 04:10
Hgb 11.3 g/dL (12.0-16.0) L 04/08/25 04:10
Hct 33.9 % (37.0-47.0) L 04/08/25 04:10
Plt Count 269 10^3/uL (130-400) 04/08/25 04:10
Sodium 131 mmol/L (135-145) L 04/08/25 04:10
Potassium 4.2 mmol/L (3.5-5.1) 04/08/25 04:10
Chloride 97 mmol/L (98-107) L 04/08/25 04:10
Carbon Dioxide 27 mmol/L (22-30) 04/08/25 04:10
BUN 48 mg/dl (7-17) H 04/08/25 04:10
Creatinine 1.3 mg/dL (0.6-1.0) H 04/08/25 04:10
eGFR 41.06 04/08/25 04:10
Glucose 194 mg/dl (70-99) H 04/08/25 04:10
Calcium 9.1 mg/dl (8.4-10.2) 04/08/25 04:10
Drs-I-Qypoqilpmck Pept 40815 pg/ml 04/05/25 02:12
Albumin 4.5 g/dl (3.5-5.0) 03/30/25 13:46
Physical Exam
-
Vital Signs:
Vital Signs
Temp Pulse Resp BP Pulse Ox
97.2 F 77 20 123/75 97
04/08/25 11:40 04/08/25 08:30 04/08/25 11:40 04/08/25 08:15 04/08/25 11:40
Cardiovascular:: Regular rate and rhythm
Respiratory:: Bilateral: CTA (decrased)
Lung Excursion:: Normal
Abdomen:: Nontender and Soft
Extremity Edema:: +1: Bilateral: (trace)
Lomeli Catheter: No
[2025-04-08] MEDS: NOVOLOG FLEXPEN-LOW RESISTANCE 2 UNITS SC (13:26)
[2025-04-08] MEDS: STERILE WATER FOR INJECTION 10 ML IV (15:47)
[2025-04-08] MEDS: ROCEPHIN 1000 MG IV (15:47)
[2025-04-08 16:54] LABS: Glucose - Point of Care 257 mg/dl (70-99)
[2025-04-08] MEDS: ZAROXOLYN 2.5 MG PO (17:42)
--- NOTE | 2025-04-08 18:54 | PTCARENOTE ---
~8016-8151: Handoff report received from nightshift RN. Pt AOx4, forgetful at times. Bed alarm/ chair alarm in place for safety. NIHSS 0. NSR 1st degree AVB BBB 60s-70s, SBP 120s, RA satting 97%, + frequent dry cough. Pt denies pain at this time. +1
BLE edema. +2/+1 pulses. Ax1 walker to bathroom, I/Os charted. All needs met at this time, call lopez within reach.
~7537-0537: Patient c/o SOB with ambulation. Ambulating SpO2 98-99%, but pt c/o SOB and needed states she needed to sit to catch her breath. Onelia Lamb PA-C made aware. Compression socks applied to BLE for swelling and feet elevated. All needs
met at this time, call lopez within reach.
~8528-2808: Nephrology and cardiology in to see patient. Patient ambulated with PT out into tapia, patient did get SANTANA but sats stayed in 90s. Patient voided 275cc, I/Os charted, nephrology made aware per request. Patient's sister at bedside, update
given. All needs met at this time, call lopez within reach.
~8643-8034: Ax1 walker to bathroom. I/Os charted. Metolazone given per order. Pt OOB in chair. All needs met at this time, call lopez within reach. Handoff report given to nightshift RN.
[2025-04-08 21:46] LABS: Glucose - Point of Care 178 mg/dl (70-99)
--- NOTE | 2025-04-08 22:37 | PTCARENOTE ---
Received pt at change of shift resting in bed. SR w/ BBBC on tele, HR 60's-70's. pt c/o anxiety and not being able to sleep, offered to reach out to get something for anxiety/sleep, pt refused. Reinforced importance of fluid restriction and
measuring output. pt AAOx3, forgetful @x's. Bed alarm on and audible. Encouraged pt to call RN for assistance ambulating and/or w/ any questions/concerns. Call lopez within reach.
[2025-04-09] VITALS (9 sets, daily range): BP systolic 108–131; BP diastolic 51–77; PULSE 68; O2SAT 99; BMI 29.8
[2025-04-09 03:59] LABS: Blood Urea Nitrogen 49 mg/dl (7-17); Calcium 9.0 mg/dl (8.4-10.2); Carbon Dioxide 28 mmol/L (22-30); Chloride 95 mmol/L (98-107); Estimated Creatinine Clearance 29 ml/min; Glucose 143 mg/dl (70-99); Potassium 3.4 mmol/L (3.5-5.1); Sodium 130 mmol/L (135-145); eGFR 41.06
--- NOTE | 2025-04-09 07:32 | W.PN.CARDCBS ---
Addendum entered and electronically signed by Abdulaziz Gonzales MD 04/09/25 09:51:
I saw and examined the patient.
The Student Counsellor's note was reviewed and I agree with the note.
Comment:
GEN: No distress, awake, Ox3
HEENT: supple, anicteric, mmm
LUNGS: CTA, no wheezes/rales
CV: Reg, S1/S2, 2/6 syst LSB, S3+
ABD: soft, BS+, NT/ND
EXT: No edema
NEURO: Gross non-focal
SKIN: No rash
Plan:
Slightly improved today and weight continues to fall. Agree with continuing Lasix 60 mg IV twice daily with metolazone.
Creatinine stable at 1.3. Also with hyponatremia with sodium of 130.
For repeat echocardiogram today to reevaluate LVEF and mitral valve.
Blood pressure has been stable. Would consider restarting lisinopril after diuresis as long as kidney function remains stable.
Continue medical therapy for severe coronary artery disease. Continue aspirin, Coreg, and rosuvastatin.
Will check on cost of Farxiga.
Original Note:
Today's Communication / Plan
-
continue IV lasix 60mg BID with metolazone 2.5mg
follow Cr
replete K
limited echo today
Impression / Plan
-
Please see office note dated 03/30/25 to serve as H&P
Primary Philosophy And Religion Instructor: Dr. ALEX Fields
Assessment:
Presentation 03/2025 with SOB, palpitations
Acute HFrEF
Paroxysmal atrial tachycardia/atrial fibrillation with RVR, new diagnosis of unclear duration, suspected paroxysmal
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
Cardiomyopathy, EF 35% by echo 02/2025
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
History of CVA 2023
Mod MR
DM2
HTN
HLD
PAD with prior occluded R SFA
ECHO 04/17/24: EF 55%, aortic sclerosis, mild to moderate MR
ECHO 03/05/25: EF 35%, septal dyskinesis consistent with bundle branch block, mild LVH with moderate to severe basal septal hypertrophy, grade 1 diastolic dysfunction, moderate MR, trace TR
Echo 03/31/2025: EF 22%, bilateral pleural effusions noted, MR worsened from moderate to severe, global hypokinesis with inferolateral, mid anteroseptal, anterior, lateral, apical akinesis, no sign of LV clot, mild to moderate LVH with septum
measuring 1.5 cm, mild TR, PAP 45 mmHg
Cardiac catheterization 04/01/2025: LM: Normal. LAD: Long 50 to 70% stenosis in mid portion beyond first diagonal extending into mid LAD beyond second diagonal. Circumflex: Tandem 50 and 60% stenosis in proximal and midportion. OM branch 50% mid
and 80% distal stenosis. RCA: 60 to 65% proximal stenosis. RPDA 60% proximal stenosis and RPL branch 80% stenosis
Plan:
- She was seen in office 03/30 as a new patient and sent to ER as complained of shortness of breath, with heart rate in the 130s and echo from 03/05/2025 showing new EF of 35%. Troponin peaked at 1.7. No chest pain. Repeat echo this admission with EF
22% and MR worsened from moderate to severe with bilateral pleural effusions noted
- complex from cardiac standpoint
- required milrinone earlier in admission, CI was 2 on 04/01 while on milrinone, stopped 04/04
- Underwent cardiac catheterization 04/01/2025 with multivessel coronary disease involving LAD, circumflex, RCA. CT surgery consulted, but not felt to be a good surgical candidate. Could consider high risk LAD PCI if fails medical therapy, however
is largely asymptomatic without chest pain and LAD disease is diffuse
- wedge at time of cath 04/01 was 28. she did not diurese particularly well on lasix earlier in admission and proBNP had trended up. chest CT 04/06 with evidence of continued CHF/pleural effusions and remained with SOB/SANTANA. finally responding to
diuresis with IV lasix 60mg BID and metolazone 2.5, I&O negative 2.5L overnight. weights stable, asked nursing to reweigh
- Cr stable at 1.3. will plan to give dose of metolazone again today, d/w nephrology
- Outpatient metformin and lisinopril are also on hold
- replete K. will need to follow hyponatremia with diuresis
- repeat limited echo today to reassess EF and MR.
- has had both suspected atach as well as now PAF since admission. currently in SR on review of tele. continue amiodarone 200mg BID for 2 weeks then decrease to 200mg daily.
- Currently on asa, eliquis at decreased dose of 2.5mg BID, however remains borderline for dosing. will need to monitor closely in OP setting
- continue coreg. GDMT of CM as able, however limited due to renal insufficiency.
- LDL 35. Continue Crestor.
- continue PT/OT
- she is felt to be high risk for readmission and patient does not seem to understand severity of illness. she will have VN upon DC and sister will be staying with her, she lives in a [place]. she is walking 150 feet with supervision per PT notes
- discussed with nursing
Progress Note - Philosophy And Religion Instructor
Subjective
Date of Service: April 09, 2025
reports some improvement in breathing, however remains heavy at times
Objective
Labs:
04/08/25 04:10
04/09/25 02:51
Labs
Hgb 11.3 g/dL (12.0-16.0) L 04/08/25 04:10
Hct 33.9 % (37.0-47.0) L 04/08/25 04:10
Plt Count 269 10^3/uL (130-400) 04/08/25 04:10
PT 16.0 Sec (11.4-14.6) H 03/30/25 13:46
INR 1.26 03/30/25 13:46
APTT 84.3 Sec (23.4-35.0) H 04/03/25 12:10
Sodium 130 mmol/L (135-145) L 04/09/25 02:51
Potassium 3.4 mmol/L (3.5-5.1) L 04/09/25 02:51
BUN 49 mg/dl (7-17) H 04/09/25 02:51
Creatinine 1.3 mg/dL (0.6-1.0) H 04/09/25 02:51
Glucose 143 mg/dl (70-99) H 04/09/25 02:51
Vital Signs and I&O:
Vital Signs
Temp Pulse Resp BP Pulse Ox
97.6 F 61 18 114/69 94
04/09/25 02:45 04/09/25 05:30 04/09/25 02:45 04/09/25 02:45 04/09/25 02:45
Vital Signs
Temp Pulse Resp BP Pulse Ox
97.6 F 61 18 114/69 94
04/09/25 02:45 04/09/25 05:30 04/09/25 02:45 04/09/25 02:45 04/09/25 02:45
Intake & Output
04/06/25 04/07/25 04/08/25 04/09/25
07:59 07:59 07:59 07:59
Intake Total 360 / 360 720 / 720 360 / 360
Output Total 350 / 350 1550 / 1550 750 / 750 2400 / 2400
Balance -830 / -830 -390 / -390 -2400 / -2400
Physical Exam
Physical Exam
GEN: No distress, awake, alert, oriented x3.
HEENT: supple, anicteric, mmm, EOMI
LUNGS: improvement in breath sounds, no wheezes
CV: Reg, S1/S2, 1/6 murmur
ABD: soft, BS+, NT/ND
EXT: No cyanosis, clubbing. 1+ edema of ankles
NEURO: Gross non-focal
SKIN: Warm, pink, dry. No rash
[2025-04-09] MEDS: KCL 40 MEQ PO (08:00)
[2025-04-09] MEDS: LOW STRENGTH ASPIRIN 81 MG PO (08:00)
[2025-04-09] MEDS: PACERONE 200 MG PO ×2 (08:00→20:22)
[2025-04-09] MEDS: COREG 3.125 MG PO ×2 (08:00→20:25)
[2025-04-09] MEDS: ELIQUIS 2.5 MG PO ×2 (08:01→20:25)
[2025-04-09] MEDS: CRESTOR 20 MG PO (08:01)
[2025-04-09] MEDS: DESENEX/MITRAZOL/ZEASORB 1 APPLIC TOPICAL ×2 (08:01→20:26)
[2025-04-09] MEDS: LASIX 60 MG IV ×2 (08:01→16:15)
[2025-04-09 08:30] LABS: Glucose - Point of Care 176 mg/dl (70-99)
--- NOTE | 2025-04-09 09:17 | W.PN.NEPH.PH ---
Today's Communication / Plan
-
Maximizing volume status with both metolazone and IV Lasix
Creatinine stable at 1.3
Assessment/Plan
-
IMP:
Acute HFrEF
Echocardiogram shows EF of 22% (it was 35% prior)
Elevated troponin likely acute NSTEMI
Cardiogenic shock-On milrinone drip
Paroxysmal A-fib
JOON
Sudden onset of dizziness and double vision on 03/31
h/o CVA
Hyponatremia
Anemia
Leukocytosis
Hypertension
Hyperlipidemia
Diabetes mellitus type 2
Peripheral vascular disease
PLan:
A/w symp a flutter, CHF
LHC noted MVD but not surgical candidate
JOON-suspect CRS and diuretics, contrast exposure on 04/01
cr unchanged at 1.3, baseline 0.8-1,
UA with pyuria and bact, 3+bld but no RBC on AC, urine fena not low, U cx GNB
sub nephrotic proteinuria 1.7gm/gm of cr need f/u as out pt felt to be from DM
renal US no hydro, non obst stone of left kidney
Bp stable on low dose coreg per cards
will wait addition of ACEI or ARB till cr stabilizes, hold SGLT2I with suspected UTI
Weights unchanged. Diuretics which include metolazone and 60 mg IV twice daily of Lasix
dose increased today to 60 BID< if no sig response may add metolazone
we may have to compromise higher cr to maintain her vol status
avoid nephrotoxins
mild hyponatremia from hypervolemia
replete potassium
d/w pt, nursing and cards
Left adrenal gland mass, with attenuation value suggesting a left adrenal adenoma with a high degree of confidence-incidental finding on CT-need eval out pt.
d/c plan hopefully when resp symp improve
-
-
Date of Service: April 09, 2025
CC / HPI / ROS
-
Chief Complaint:
JOON
History of Present Illness:
cr better at 1.3, non oliguric
Hemodynamically stable
sodium low 130
Review of Systems:
still mild sob on exertion
no n/v or cp
weights stable
Labs
-
Labs:
WBC 8.3 10^3/uL (4.8-10.8) 04/08/25 04:10
RBC 3.90 10^6/uL (4.20-5.40) L 04/08/25 04:10
Hgb 11.3 g/dL (12.0-16.0) L 04/08/25 04:10
Hct 33.9 % (37.0-47.0) L 04/08/25 04:10
Plt Count 269 10^3/uL (130-400) 04/08/25 04:10
Sodium 130 mmol/L (135-145) L 04/09/25 02:51
Potassium 3.4 mmol/L (3.5-5.1) L 04/09/25 02:51
Chloride 95 mmol/L (98-107) L 04/09/25 02:51
Carbon Dioxide 28 mmol/L (22-30) 04/09/25 02:51
BUN 49 mg/dl (7-17) H 04/09/25 02:51
Creatinine 1.3 mg/dL (0.6-1.0) H 04/09/25 02:51
eGFR 41.06 04/09/25 02:51
Glucose 143 mg/dl (70-99) H 04/09/25 02:51
Calcium 9.0 mg/dl (8.4-10.2) 04/09/25 02:51
Dkv-K-Ywfukxvljmc Pept 87408 pg/ml 04/05/25 02:12
Albumin 4.5 g/dl (3.5-5.0) 03/30/25 13:46
Physical Exam
-
Vital Signs:
Vital Signs
Temp Pulse Resp BP Pulse Ox
97.4 F 68 16 131/77 97
04/09/25 07:37 04/09/25 08:01 04/09/25 07:37 04/09/25 08:01 04/09/25 07:37
Cardiovascular:: Regular rate and rhythm
Respiratory:: Bilateral: CTA (decrased)
Lung Excursion:: Normal
Abdomen:: Nontender and Soft
Extremity Edema:: +1: Bilateral: (trace)
Lomeli Catheter: No
--- NOTE | 2025-04-09 09:24 | W.PN.HOSP.TC ---
Today's Communication/Plan
-
.
Assessment / Plan
Assessment / Plan
Physical exam:
General: Acutely ill
HEENT: Normocephalic, Atraumatic and Moist Mucous Membranes
Respiratory: ; limited. Negative Wheezes, Rales or Rhonchi
Cardiac: Regular Rhythm and S1/S2
GI: Soft, Nontender and Nondistended
Musculoskeletal: No Clubbing, No Cyanosis and No Edema
Neuro: Awake, Alert and Oriented, no neurological deficits but generalized weakness
Psych: Calm
A/P:
Acute HFrEF:
She feels better
denies sob, no hypoxia. Her sob c/w advanced CHF, will do ambulatory O2 level. CT chest c/w interstitial edema.
No chest pain
s/p IV Lasix 40 mg twice a day now on 60 mg BID
Echocardiogram shows EF of 22% (it was 35% prior) and other multiple abnormalities.
Appreciate cardiology help
PT OT eval recommended home health
Hypokalemia
Acute NSTEMI with multivessel CAD:
Off heparin drip
Continue aspirin and statin
Started on low dose Coreg
Status post left heart cath and right heart cath on 04/01
Cardiogenic shock:
off milrinone drip
c/w Lasix
Incidental finding on CT
Left adrenal gland mass, with attenuation value suggesting a left adrenal adenoma with a high degree of confidence
I d/w pt, I recommend OP follow up with primary, likely need further images for left adrenal mass.
Paroxysmal A-fib:
Continue Eliquis
On loading doses of amiodarone, now change to 200 mg QD upon dc. Started on BB
JOON:
Reviewed kidney ultrasound
Avoid nephrotoxic
Nephrology consult appreciated
Monitored renal function closely
UTI:
E. coli in the urine culture pending sensitivity
s/p IV ceftriaxone 1 g daily and switch to oral upon dc.
Probably hold off on SGLT2I for now
Sudden onset of dizziness and double vision on 03/31:
Resolved
she feels weak in general
Neurology evaluated the patient and MRI of the brain no acute ischemic finding
Hyponatremia:
Improving
Continue to monitor closely
Anemia:
Stable HGB
Hyperlipidemia:
Continue home statin
Diabetes mellitus type 2:
Uncontrolled
Change diet to 1800 branden diabetic diet and low-cholesterol
Continue long-acting insulin with Lantus but will increase to better control BS.
On NovoLog 5 units before each meal, increase to 7 units
Peripheral vascular disease:
On aspirin and statin
DVT prophylaxis:
Eliquis
CODE STATUS:
Full code
Total time spent to see the patient, examined the patient, reviewed data and lab result, discuss treatment plan with patient, nursing staff around 45 minutes
Anticipated Discharge: 24 - 48 hours
Subjective/Interval History
-
Date of Service: April 09, 2025
No chest pain
No sob
No abdominal pain
Objective Data
-
Labs:
Laboratory Results
04/09/25
02:51
Sodium 130 L
Potassium 3.4 L
Chloride 95 L
Carbon Dioxide 28
BUN 49 H
Creatinine 1.3 H
Glucose 143 H
Calcium 9.0
Vital Signs:
Vital Signs
Temp Pulse Resp BP Pulse Ox
97.4 F 68 16 131/77 97
04/09/25 07:37 04/09/25 08:01 04/09/25 07:37 04/09/25 08:01 04/09/25 07:37
I&O
04/08/25 04/09/25 04/10/25
06:59 06:59 06:59
Intake Total 360 / 360 450 / 450
Output Total 750 / 750 2400 / 2400 500 / 500
Balance -390 / -390 -2400 / -2400 -50 / -50
[2025-04-09] MEDS: LANTUS 0.2 UNITS SC (10:26)
[2025-04-09] MEDS: NOVOLOG FLEXPEN-LOW RESISTANCE 1 UNITS SC (10:27)
[2025-04-09] MEDS: NOVOLOG FLEXPEN 5 UNITS SC (10:27)
--- NOTE | 2025-04-09 11:34 | CM ---
Reviewed chart. Met with Mrs. Santana to review discharge plans. She states she feels about the same. We reviewed [facility] with her. She is agreeable to [facility]. Prior to admission she resides alone in a one story home with one step to
enter. Prior to admission she was independent with ambulation and adls. She does not have any DME in the home. She has a prescription plan. Will need to see her current functional level to see if she will have any skilled care needs. Medical
work-up in progress. The discharge plan is to return home with her sister staying with her and [facility] when medically stable.
[2025-04-09 11:38] LABS: Glucose - Point of Care 332 mg/dl (70-99)
[2025-04-09 12:41] LABS: Glucose - Point of Care 268 mg/dl (70-99)
[2025-04-09] MEDS: NOVOLOG FLEXPEN-LOW RESISTANCE 3 UNITS SC ×2 (12:41→17:37)
[2025-04-09] MEDS: NOVOLOG FLEXPEN 7 UNITS SC ×2 (12:42→17:38)
[2025-04-09] MEDS: ZAROXOLYN 2.5 MG PO (16:14)
[2025-04-09] MEDS: ROCEPHIN 1000 MG IV (16:15)
[2025-04-09] MEDS: STERILE WATER FOR INJECTION 10 ML IV (16:16)
[2025-04-09] MEDS: FLUSH (NSS) 2 FLUSH IV (16:16)
[2025-04-09 17:36] LABS: Glucose - Point of Care 293 mg/dl (70-99)
--- NOTE | 2025-04-09 19:09 | PTCARENOTE ---
~[id number]: Handoff report received from lyle RN. Pt AOx4, anxious and forgetful at times. Bed alarm/ chair alarm in place for safety. NSR BBB 60s, SBP 130s, RA satting 97%, shallow and diminished in bases, occassional dry cough noted. Patient
reweighed per cardioogy request- 69.3kg. Standby assist with walker to bathroom. I/Os charted. 60 IV lasix given per order. Pt denies pain at this time. Pt OOB to chair. Patient blood sugars have been trending in high 170s to 200s, informed
hospitalist, diabetes management consulted. K+ 3.4, K+ repleated. All needs met at this time, call lopez within reach.
~[id number]: Diabeted management consult cancelled by Dr. Rabago, new insulin orders placed.
~[id number]: Sister at bedside, request to speak with cardiology, TT sent to Onelia Rousseau in to speak with sister and patient about plan of care. PT in to work with patient as well. All needs met at this time, call lopez within reach.
~[id number]: Standby assist to bathroom frequently, I/Os charted. Pt OOB in chair eating dinner. Sister in to visit most of the day. SOB appears to be improved from yesterday. VSS, denies pain. All needs met at this time, call lopez within reach.
Handoff report given to philip RN.
--- NOTE | 2025-04-09 20:30 | PTCARENOTE ---
Assumed care at 1900. Patient alert and oriented x3. Forgetful at times. Patient out of bed in chair. Needing to use the bathroom frequently. Patient denies any pain. Reports shortness of breath with activity. Patient remains on room air. Normal
sinus rhythm on tele. Chair alarm on and audible for safety. Call lopez and personal belongings within reach.
[2025-04-09 22:14] LABS: Glucose - Point of Care 143 mg/dl (70-99)
[2025-04-10] VITALS (8 sets, daily range): BP systolic 103–122; BP diastolic 51–73; BMI 29.3; BMI 29.5
[2025-04-10 06:18] LABS: Blood Urea Nitrogen 58 mg/dl (7-17); Calcium 9.2 mg/dl (8.4-10.2); Carbon Dioxide 32 mmol/L (22-30); Chloride 93 mmol/L (98-107); Estimated Creatinine Clearance 27 ml/min; Glucose 107 mg/dl (70-99); Potassium 3.6 mmol/L (3.5-5.1); Sodium 132 mmol/L (135-145); eGFR 37.56
[2025-04-10] MEDS: ELIQUIS 2.5 MG PO ×2 (08:01→20:30)
[2025-04-10] MEDS: CRESTOR 20 MG PO (08:02)
[2025-04-10] MEDS: COREG 3.125 MG PO ×2 (08:02→20:29)
[2025-04-10] MEDS: LASIX 60 MG IV ×2 (08:02→17:16)
[2025-04-10] MEDS: LOW STRENGTH ASPIRIN 81 MG PO (08:02)
[2025-04-10] MEDS: DESENEX/MITRAZOL/ZEASORB 1 APPLIC TOPICAL ×2 (08:02→20:30)
[2025-04-10] MEDS: PACERONE 200 MG PO ×2 (08:13→20:29)
[2025-04-10 08:14] LABS: Glucose - Point of Care 124 mg/dl (70-99)
--- NOTE | 2025-04-10 08:15 | PTCARENOTE ---
Assumed care of pt from nightshift RN. Pt AAOx4. Appropriate. SR on the tele monitor. HR 60s. BP stable. B/L DP pulses weak. +1 LE edema present. Pt on RA. POX 96%. Lung sounds diminished throughout. SOB w/ activity. Stand by assist OOB / chair.
Abdomen round. +BSx4. Voiding w/o issue. PIVx2 intact. Pt updated w/ plan for the day. See worklist for full nursing assessment and interventions. Call lopez within reach.
--- NOTE | 2025-04-10 09:21 | W.PN.NEPH.PH ---
Today's Communication / Plan
-
Maintain IV Lasix
Follow BMP
Holding metolazone today
Assessment/Plan
-
IMP:
Acute HFrEF
Echocardiogram shows EF of 22% (it was 35% prior)
Elevated troponin likely acute NSTEMI
Cardiogenic shock-On milrinone drip
Paroxysmal A-fib
JOON
Sudden onset of dizziness and double vision on 03/31
h/o CVA
Hyponatremia
Anemia
Leukocytosis
Hypertension
Hyperlipidemia
Diabetes mellitus type 2
Peripheral vascular disease
PLan:
A/w symp a flutter, CHF
LHC noted MVD but not surgical candidate
JOON-suspect CRS and diuretics, contrast exposure on 04/01
cr unchanged at 1.4, baseline 0.8-1,
Okay to maintain IV Lasix significant diuresis with metolazone last evening
Will not redose metolazone today
Breathing seems significantly improved
sub nephrotic proteinuria 1.7gm/gm of cr need f/u as out pt felt to be from DM
renal US no hydro, non obst stone of left kidney
Bp stable on low dose coreg per cards
will wait addition of ACEI or ARB till cr stabilizes, hold SGLT2I with suspected UTI
Weights unchanged. Diuretics which include metolazone and 60 mg IV twice daily of Lasix
dose increased today to 60 BID< if no sig response may add metolazone
we may have to compromise higher cr to maintain her vol status
avoid nephrotoxins
mild hyponatremia from hypervolemia
replete potassium
d/w pt, nursing and cards
Left adrenal gland mass, with attenuation value suggesting a left adrenal adenoma with a high degree of confidence-incidental finding on CT-need eval out pt.
d/c plan hopefully when resp symp improve
-
-
Date of Service: April 10, 2025
CC / HPI / ROS
-
Chief Complaint:
JOON
History of Present Illness:
cr better at 1.4, non oliguric
Hemodynamically stable
sodium improved to 130
Review of Systems:
still mild sob on exertion
no n/v or cp
weights stable
Urine output around 4 L
Labs
-
Labs:
WBC 8.3 10^3/uL (4.8-10.8) 04/08/25 04:10
RBC 3.90 10^6/uL (4.20-5.40) L 04/08/25 04:10
Hgb 11.3 g/dL (12.0-16.0) L 04/08/25 04:10
Hct 33.9 % (37.0-47.0) L 04/08/25 04:10
Plt Count 269 10^3/uL (130-400) 04/08/25 04:10
Sodium 132 mmol/L (135-145) L 04/10/25 05:40
Potassium 3.6 mmol/L (3.5-5.1) 04/10/25 05:40
Chloride 93 mmol/L (98-107) L 04/10/25 05:40
Carbon Dioxide 32 mmol/L (22-30) H 04/10/25 05:40
BUN 58 mg/dl (7-17) H 04/10/25 05:40
Creatinine 1.4 mg/dL (0.6-1.0) H 04/10/25 05:40
eGFR 37.56 04/10/25 05:40
Glucose 107 mg/dl (70-99) H 04/10/25 05:40
Calcium 9.2 mg/dl (8.4-10.2) 04/10/25 05:40
Nba-A-Vvsgtnyualo Pept 73011 pg/ml 04/05/25 02:12
Albumin 4.5 g/dl (3.5-5.0) 03/30/25 13:46
Physical Exam
-
Vital Signs:
Vital Signs
Temp Pulse Resp BP Pulse Ox
97.7 F 63 18 120/53 96
04/10/25 05:22 04/10/25 07:57 04/10/25 05:22 04/10/25 07:57 04/10/25 05:22
Cardiovascular:: Regular rate and rhythm
Respiratory:: Bilateral: Coarse (decreased breath sounds to bases)
Lung Excursion:: Normal
Abdomen:: Nontender and Soft
Extremity Edema:: +1: Bilateral: (trace)
Lomeli Catheter: No
--- NOTE | 2025-04-10 09:33 | W.PN.HOSP.TC ---
Today's Communication/Plan
-
.
Assessment / Plan
Assessment / Plan
Physical exam:
General: chronically ill looking
HEENT: Normocephalic, Atraumatic and Moist Mucous Membranes
Respiratory: ; limited. Negative Wheezes, Rales or Rhonchi
Cardiac: Regular Rhythm and S1/S2
GI: Soft, Nontender and Nondistended
Musculoskeletal: No Clubbing, No Cyanosis and No Edema
Neuro: Awake, Alert and Oriented X3, no neurological deficits
Psych: Calm
A/P:
Acute HFrEF:
She feels better
denies sob, no hypoxia. Her sob c/w advanced CHF, will do ambulatory O2 level. CT chest c/w interstitial edema.
No chest pain
s/p IV Lasix 40 mg twice a day now on 60 mg BID
Echocardiogram shows EF of 22% (it was 35% prior) and other multiple abnormalities.
Appreciate cardiology help
PT OT eval recommended home health
Hypokalemia
Acute NSTEMI with multivessel CAD:
Off heparin drip
Continue aspirin and statin
Started on low dose Coreg
Status post left heart cath and right heart cath on 04/01
Cardiogenic shock:
off milrinone drip
c/w Lasix
Incidental finding on CT
Left adrenal gland mass, with attenuation value suggesting a left adrenal adenoma with a high degree of confidence
I d/w pt, I recommend OP follow up with primary, likely need further images for left adrenal mass.
Paroxysmal A-fib:
Continue Eliquis
On loading doses of amiodarone, now change to 200 mg QD upon dc. Started on BB
JOON:
Reviewed kidney ultrasound
Avoid nephrotoxic
Nephrology consult appreciated
Monitored renal function closely
UTI:
E. coli in the urine culture pending sensitivity
s/p IV ceftriaxone 1 g daily and switch to oral upon dc.
Probably hold off on SGLT2I for now
Sudden onset of dizziness and double vision on 03/31:
Resolved
she feels weak in general
Neurology evaluated the patient and MRI of the brain no acute ischemic finding
Hyponatremia:
Improving
Continue to monitor closely
Anemia:
Stable HGB
Hyperlipidemia:
Continue home statin
Diabetes mellitus type 2:
Uncontrolled
Change diet to 1800 branden diabetic diet and low-cholesterol
Continue long-acting insulin with Lantus but will increase to better control BS.
On NovoLog 5 units before each meal, increase to 7 units
Peripheral vascular disease:
On aspirin and statin
DVT prophylaxis:
Eliquis
CODE STATUS:
Full code
Total time spent to see the patient, examined the patient, reviewed data and lab result, discuss treatment plan with patient, nursing staff around 45 minutes
Anticipated Discharge: > 48 hours
Subjective/Interval History
-
Date of Service: April 10, 2025
No chest pain
Objective Data
-
Labs:
Laboratory Results
04/10/25
05:40
Sodium 132 L
Potassium 3.6
Chloride 93 L
Carbon Dioxide 32 H
BUN 58 H
Creatinine 1.4 H
Glucose 107 H
Calcium 9.2
Vital Signs:
Vital Signs
Temp Pulse Resp BP Pulse Ox
97.7 F 63 18 120/53 96
04/10/25 05:22 04/10/25 07:57 04/10/25 05:22 04/10/25 07:57 04/10/25 05:22
I&O
04/09/25 04/10/25 04/11/25
06:59 06:59 06:59
Intake Total 990 / 990
Output Total 2400 / 2400 4050 / 4050 350 / 350
Balance -2400 / -2400 -3060 / -3060 -350 / -350
[2025-04-10 09:54] LABS: Glucose - Point of Care 212 mg/dl (70-99)
[2025-04-10] MEDS: LANTUS 0.25 UNITS SC (09:54)
[2025-04-10] MEDS: NOVOLOG FLEXPEN-LOW RESISTANCE 2 UNITS SC (09:54)
[2025-04-10] MEDS: NOVOLOG FLEXPEN 7 UNITS SC ×3 (09:55→18:17)
--- NOTE | 2025-04-10 12:26 | W.PN.CARDCBS ---
Today's Communication / Plan
-
Continue IV Lasix
Check on cost of Farxiga/Jardiance
Impression / Plan
-
Please see office note dated 03/30/25 to serve as H&P
Primary Applied Computer Science Professor: Dr. ALEX Fields
Assessment:
Presentation 03/2025 with SOB, palpitations
Acute HFrEF
Paroxysmal atrial tachycardia/atrial fibrillation with RVR, new diagnosis of unclear duration, suspected paroxysmal
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
Cardiomyopathy, EF 35% by echo 02/2025
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
History of CVA 2023
Mod MR
DM2
HTN
HLD
PAD with prior occluded R SFA
ECHO 04/17/24: EF 55%, aortic sclerosis, mild to moderate MR
ECHO 03/05/25: EF 35%, septal dyskinesis consistent with bundle branch block, mild LVH with moderate to severe basal septal hypertrophy, grade 1 diastolic dysfunction, moderate MR, trace TR
Echo 03/31/2025: EF 22%, bilateral pleural effusions noted, MR worsened from moderate to severe, global hypokinesis with inferolateral, mid anteroseptal, anterior, lateral, apical akinesis, no sign of LV clot, mild to moderate LVH with septum
measuring 1.5 cm, mild TR, PAP 45 mmHg
Cardiac catheterization 04/01/2025: LM: Normal. LAD: Long 50 to 70% stenosis in mid portion beyond first diagonal extending into mid LAD beyond second diagonal. Circumflex: Tandem 50 and 60% stenosis in proximal and midportion. OM branch 50% mid
and 80% distal stenosis. RCA: 60 to 65% proximal stenosis. RPDA 60% proximal stenosis and RPL branch 80% stenosis
Echo 04/09/2025: Ejection fraction 25 to 30%, global hypokinesis with inferior and inferolateral akinesis, severe MR
Plan:
She continues to diurese and will continue IV Lasix
Fattening is stable at 1.4
Echocardiogram unchanged on 04/09/2025
May consider eventually resuming lisinopril if renal function remains stable
Check on cost of Farxiga/Jardiance prior to discharge
Discussed with primary service
Progress Note - Applied Computer Science Professor
Subjective
Date of Service: April 10, 2025
No complaints
Objective
Labs:
04/08/25 04:10
04/10/25 05:40
Labs
Hgb 11.3 g/dL (12.0-16.0) L 04/08/25 04:10
Hct 33.9 % (37.0-47.0) L 04/08/25 04:10
Plt Count 269 10^3/uL (130-400) 04/08/25 04:10
PT 16.0 Sec (11.4-14.6) H 03/30/25 13:46
INR 1.26 03/30/25 13:46
APTT 84.3 Sec (23.4-35.0) H 04/03/25 12:10
Sodium 132 mmol/L (135-145) L 04/10/25 05:40
Potassium 3.6 mmol/L (3.5-5.1) 04/10/25 05:40
BUN 58 mg/dl (7-17) H 04/10/25 05:40
Creatinine 1.4 mg/dL (0.6-1.0) H 04/10/25 05:40
Glucose 107 mg/dl (70-99) H 04/10/25 05:40
Vital Signs and I&O:
Vital Signs
Temp Pulse Resp BP Pulse Ox
97.7 F 63 18 120/53 96
04/10/25 05:22 04/10/25 07:57 04/10/25 05:22 04/10/25 07:57 04/10/25 08:15
Vital Signs
Temp Pulse Resp BP Pulse Ox
97.7 F 63 18 120/53 96
04/10/25 05:22 04/10/25 07:57 04/10/25 05:22 04/10/25 07:57 04/10/25 08:15
Intake & Output
04/08/25 04/09/25 04/10/25 04/11/25
06:59 06:59 06:59 06:59
Intake Total 360 / 360 990 / 990
Output Total 750 / 750 2400 / 2400 4050 / 4050 850 / 850
Balance -390 / -390 -2400 / -2400 -3060 / -3060 -850 / -850
Physical Exam
Physical Exam
General: Well developed, well nourished in NAD.
Neck: Supple, no JVD, HJR, carotids +2 B/L, no bruits bilaterally.
Heart: Non displaced PMI, RRR, no murmurs, No S3, S4, no rubs.
Lungs: Scattered rhonchi
Extremities: No clubbing, cyanosis or edema bilaterally.
Neuro: Grossly nonfocal, awake, alert and oriented x3.
[2025-04-10] MEDS: NOVOLOG FLEXPEN-LOW RESISTANCE 4 UNITS SC (14:08)
[2025-04-10 14:09] LABS: Glucose - Point of Care 303 mg/dl (70-99)
[2025-04-10] MEDS: STERILE WATER FOR INJECTION 10 ML IV (17:16)
[2025-04-10] MEDS: ROCEPHIN 1000 MG IV (17:16)
[2025-04-10 17:30] LABS: Glucose - Point of Care 177 mg/dl (70-99)
[2025-04-10] MEDS: NOVOLOG FLEXPEN-LOW RESISTANCE 1 UNITS SC (18:16)
[2025-04-10 22:25] LABS: Glucose - Point of Care 128 mg/dl (70-99)
[2025-04-11] VITALS (8 sets, daily range): BP systolic 105–127; BP diastolic 51–85; BMI 29.2
--- NOTE | 2025-04-11 02:25 | PTCARENOTE ---
Assumed care at 1900. Patient alert and oriented x4. Calm and cooperative with care. Patient denies any pain. Reports mild shortness of breath with activity. Patient ambulating to bathroom with walker and standby assist. Patient remains on room air.
Normal sinus rhythm with bundle branch block on tele. Lung sounds diminished throughout. Patient has a frequent dry cough. Patient educated on plan of care. Bed alarm and chair alarm on and audible for safety. Call lopez and personal belongings
within reach.
[2025-04-11 05:43] LABS: Blood Urea Nitrogen 65 mg/dl (7-17); Calcium 8.9 mg/dl (8.4-10.2); Carbon Dioxide 32 mmol/L (22-30); Chloride 88 mmol/L (98-107); Estimated Creatinine Clearance 22 ml/min; Glucose 237 mg/dl (70-99); Potassium 3.0 mmol/L (3.5-5.1); Sodium 130 mmol/L (135-145); eGFR 29.76
--- NOTE | 2025-04-11 07:36 | W.PN.CARDCBS ---
Today's Communication / Plan
-
Hold IV Lasix for renal insufficiency
Replete potassium
High risk of recurrent admissions
Impression / Plan
-
Please see office note dated 03/30/25 to serve as H&P
Primary Vice President Of Recruiting: Dr. ALXE Fields
Assessment:
Presentation 03/2025 with SOB, palpitations
Acute HFrEF
Paroxysmal atrial tachycardia/atrial fibrillation with RVR, new diagnosis of unclear duration, suspected paroxysmal
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
Cardiomyopathy, EF 35% by echo 02/2025
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
History of CVA 2023
DM2
HTN
HLD
PAD with prior occluded R SFA
Hypokalemia
Hyponatremia
ECHO 04/17/24: EF 55%, aortic sclerosis, mild to moderate MR
ECHO 03/05/25: EF 35%, septal dyskinesis consistent with bundle branch block, mild LVH with moderate to severe basal septal hypertrophy, grade 1 diastolic dysfunction, moderate MR, trace TR
Echo 03/31/2025: EF 22%, bilateral pleural effusions noted, MR worsened from moderate to severe, global hypokinesis with inferolateral, mid anteroseptal, anterior, lateral, apical akinesis, no sign of LV clot, mild to moderate LVH with septum
measuring 1.5 cm, mild TR, PAP 45 mmHg
Cardiac catheterization 04/01/2025: LM: Normal. LAD: Long 50 to 70% stenosis in mid portion beyond first diagonal extending into mid LAD beyond second diagonal. Circumflex: Tandem 50 and 60% stenosis in proximal and midportion. OM branch 50% mid
and 80% distal stenosis. RCA: 60 to 65% proximal stenosis. RPDA 60% proximal stenosis and RPL branch 80% stenosis
Echo 04/09/2025: Ejection fraction 25 to 30%, global hypokinesis with inferior and inferolateral akinesis, severe MR
Plan:
Creatinine increased to 1.7 and will hold IV Lasix
Echocardiogram unchanged on 04/09/2025
May consider eventually resuming lisinopril if renal function improves
Not an ideal candidate for Aldactone with renal insufficiency
Check on cost of Farxiga/Jardiance prior to discharge
Replete potassium
Overall prognosis poor with high risk of readmission
Discussed with nursing
Progress Note - Vice President Of Recruiting
Subjective
Date of Service: April 11, 2025
No complaints
Objective
Labs:
04/08/25 04:10
04/11/25 04:45
Labs
Hgb 11.3 g/dL (12.0-16.0) L 04/08/25 04:10
Hct 33.9 % (37.0-47.0) L 04/08/25 04:10
Plt Count 269 10^3/uL (130-400) 04/08/25 04:10
PT 16.0 Sec (11.4-14.6) H 03/30/25 13:46
INR 1.26 03/30/25 13:46
APTT 84.3 Sec (23.4-35.0) H 04/03/25 12:10
Sodium 130 mmol/L (135-145) L 04/11/25 04:45
Potassium 3.0 mmol/L (3.5-5.1) L 04/11/25 04:45
BUN 65 mg/dl (7-17) H 04/11/25 04:45
Creatinine 1.7 mg/dL (0.6-1.0) H 04/11/25 04:45
Glucose 237 mg/dl (70-99) H 04/11/25 04:45
Vital Signs and I&O:
Vital Signs
Temp Pulse Resp BP Pulse Ox
97.9 F 57 18 115/51 93
04/11/25 04:33 04/11/25 05:00 04/11/25 04:33 04/11/25 04:36 04/11/25 04:33
Vital Signs
Temp Pulse Resp BP Pulse Ox
97.9 F 57 18 115/51 93
04/11/25 04:33 04/11/25 05:00 04/11/25 04:33 04/11/25 04:36 04/11/25 04:33
Intake & Output
04/09/25 04/10/25 04/11/25 04/12/25
06:59 06:59 06:59 06:59
Intake Total 990 / 990 180 / 180
Output Total 2400 / 2400 4050 / 4050 2600 / 2600
Balance -2400 / -2400 -3060 / -3060 -2420 / -2420
Physical Exam
Physical Exam
General: Well developed, well nourished in NAD.
Neck: Supple, no JVD, HJR, carotids +2 B/L, no bruits bilaterally.
Heart: Non displaced PMI, RRR, no murmurs, No S3, S4, no rubs.
Lungs: Scattered rhonchi at the bases
Extremities: No clubbing, cyanosis or edema bilaterally.
Neuro: Grossly nonfocal, awake, alert and oriented x3.
[2025-04-11 07:46] LABS: Glucose - Point of Care 187 mg/dl (70-99)
[2025-04-11] MEDS: PACERONE 200 MG PO ×2 (07:54→19:39)
[2025-04-11] MEDS: LOW STRENGTH ASPIRIN 81 MG PO (07:55)
[2025-04-11] MEDS: CRESTOR 20 MG PO (07:55)
[2025-04-11] MEDS: ELIQUIS 2.5 MG PO ×2 (07:55→19:39)
[2025-04-11] MEDS: COREG 3.125 MG PO ×2 (07:55→19:39)
[2025-04-11] MEDS: NOVOLOG FLEXPEN-LOW RESISTANCE 1 UNITS SC ×2 (07:56→16:47)
[2025-04-11] MEDS: NOVOLOG FLEXPEN 7 UNITS SC ×2 (07:56→13:11)
[2025-04-11] MEDS: KCL 40 MEQ PO ×2 (08:00→11:48)
[2025-04-11] MEDS: LANTUS 0.25 UNITS SC (08:00)
[2025-04-11] MEDS: DESENEX/MITRAZOL/ZEASORB 1 APPLIC TOPICAL ×2 (08:05→19:39)
--- NOTE | 2025-04-11 10:45 | W.PN.HOSP.TC ---
Today's Communication/Plan
-
Increase pre-meal insulin
c/w Lasix
Replace K
Assessment / Plan
Assessment / Plan
Physical exam:
General: chronically ill looking
HEENT: Normocephalic, Atraumatic and Moist Mucous Membranes
Respiratory: ; limited. Negative Wheezes, Rales or Rhonchi
Cardiac: Regular Rhythm and S1/S2
GI: Soft, Nontender and Nondistended
Musculoskeletal: No Clubbing, No Cyanosis and No Edema
Neuro: Awake, Alert and Oriented X3, no neurological deficits
Psych: Calm
A/P:
Acute HFrEF:
She feels better
denies sob, no hypoxia. Her sob c/w advanced CHF, will do ambulatory O2 level. CT chest c/w interstitial edema.
No chest pain
s/p IV Lasix 40 mg twice a day now on 60 mg BID
Echocardiogram shows EF of 22% (it was 35% prior) and other multiple abnormalities.
Appreciate cardiology help
PT OT eval recommended home health
Hypokalemia , replace
Acute NSTEMI with multivessel CAD:
Off heparin drip
Continue aspirin and statin
Started on low dose Coreg
Status post left heart cath and right heart cath on 04/01
Cardiogenic shock:
off milrinone drip
c/w Lasix
Incidental finding on CT
Left adrenal gland mass, with attenuation value suggesting a left adrenal adenoma with a high degree of confidence
I d/w pt, I recommend OP follow up with primary, likely need further images for left adrenal mass.
Paroxysmal A-fib:
Continue Eliquis
On loading doses of amiodarone, now change to 200 mg QD upon dc. Started on BB
JOON:
Reviewed kidney ultrasound
Avoid nephrotoxic
Nephrology consult appreciated
Monitored renal function closely
UTI:
E. coli in the urine culture pending sensitivity
s/p IV ceftriaxone 1 g daily and switch to oral upon dc.
Probably hold off on SGLT2I for now
Sudden onset of dizziness and double vision on 03/31:
Resolved
she feels weak in general
Neurology evaluated the patient and MRI of the brain no acute ischemic finding
Hyponatremia:
Improving
Continue to monitor closely
Anemia:
Stable HGB
Hyperlipidemia:
Continue home statin
Diabetes mellitus type 2:
Uncontrolled
Change diet to 1800 branden diabetic diet and low-cholesterol
Continue long-acting insulin with Lantus but will increase to better control BS.
On NovoLog 5 units before each meal, increase to 10 units
Peripheral vascular disease:
On aspirin and statin
DVT prophylaxis:
Eliquis
CODE STATUS:
Full code
Spoke with sister on phone
Total time spent to see the patient, examined the patient, reviewed data and lab result, discuss treatment plan with patient, nursing staff around 45 minutes
Anticipated Discharge: 24 - 48 hours
Subjective/Interval History
-
Date of Service: April 11, 2025
She feels better
No chest pain
No sob
Objective Data
-
Labs:
Laboratory Results
04/11/25
04:45
Sodium 130 L
Potassium 3.0 L
Chloride 88 L
Carbon Dioxide 32 H
BUN 65 H
Creatinine 1.7 H
Glucose 237 H
Calcium 8.9
Vital Signs:
Vital Signs
Temp Pulse Resp BP Pulse Ox
97.9 F 58 12 105/58 93
04/11/25 07:49 04/11/25 08:00 04/11/25 07:49 04/11/25 07:55 04/11/25 04:33
I&O
04/10/25 04/11/25 04/12/25
06:59 06:59 06:59
Intake Total 990 / 990 180 / 180
Output Total 4050 / 4050 2600 / 2600
Balance -3060 / -3060 -2420 / -2420
[2025-04-11 11:46] LABS: Glucose - Point of Care 262 mg/dl (70-99)
--- NOTE | 2025-04-11 11:48 | W.PN.NEPH.PH ---
Today's Communication / Plan
-
Diuretics held with worsening renal failure
Serum sodium down to 130
Hypokalemia need of repletion
Creatinine up to 1.7
Placed fluid restriction for worsening hyponatremia in setting of congestive heart failure and renal failure
Assessment/Plan
-
IMP:
Acute HFrEF
Echocardiogram shows EF of 22% (it was 35% prior)
Elevated troponin likely acute NSTEMI
Cardiogenic shock-On milrinone drip
Paroxysmal A-fib
JOON
Sudden onset of dizziness and double vision on 03/31
h/o CVA
Hyponatremia
Anemia
Leukocytosis
Hypertension
Hyperlipidemia
Diabetes mellitus type 2
Peripheral vascular disease
PLan:
A/w symp a flutter, CHF
[facility] noted MVD but not surgical candidate
JOON-suspect CRS and diuretics, contrast exposure on 04/01
Creatinine up to 1.7 baseline 0.8-1, but remains grossly nonoliguric with urine output 1.7 L
Lasix held today
Hyponatremia exacerbated, we will utilize Samsca if needed if this continues to drop
I am not sure what else we have to offer given her advancing cardiorenal syndrome
Replete potassium approximately 80 mill equivalents
sub nephrotic proteinuria 1.7gm/gm of cr need f/u as out pt felt to be from DM
renal US no hydro, non obst stone of left kidney
will wait addition of ACEI or ARB till cr stabilizes, hold SGLT2I with suspected UTI
we may have to compromise higher cr to maintain her vol status
avoid nephrotoxins
mild hyponatremia from hypervolemia
replete potassium
d/w pt, nursing and cards
Left adrenal gland mass, with attenuation value suggesting a left adrenal adenoma with a high degree of confidence-incidental finding on CT-need eval out pt.
-
-
Date of Service: April 11, 2025
CC / HPI / ROS
-
Chief Complaint:
JOON
History of Present Illness:
JOON worse with creatinine up to 1 point
Hyponatremia worsening
Hemodynamically stable
Hypokalemia noted
Review of Systems:
still mild sob on exertion
no n/v or cp
weights unchanged
Urine output around 1.7 L
Labs
-
Labs:
WBC 8.3 10^3/uL (4.8-10.8) 04/08/25 04:10
RBC 3.90 10^6/uL (4.20-5.40) L 04/08/25 04:10
Hgb 11.3 g/dL (12.0-16.0) L 04/08/25 04:10
Hct 33.9 % (37.0-47.0) L 04/08/25 04:10
Plt Count 269 10^3/uL (130-400) 04/08/25 04:10
Sodium 130 mmol/L (135-145) L 04/11/25 04:45
Potassium 3.0 mmol/L (3.5-5.1) L 04/11/25 04:45
Chloride 88 mmol/L (98-107) L 04/11/25 04:45
Carbon Dioxide 32 mmol/L (22-30) H 04/11/25 04:45
BUN 65 mg/dl (7-17) H 04/11/25 04:45
Creatinine 1.7 mg/dL (0.6-1.0) H 04/11/25 04:45
eGFR 29.76 04/11/25 04:45
Glucose 237 mg/dl (70-99) H 04/11/25 04:45
Calcium 8.9 mg/dl (8.4-10.2) 04/11/25 04:45
Wne-Q-Cnkurxsvwbh Pept 73214 pg/ml 04/05/25 02:12
Albumin 4.5 g/dl (3.5-5.0) 03/30/25 13:46
Physical Exam
-
Vital Signs:
Vital Signs
Temp Pulse Resp BP Pulse Ox
98.1 F 65 12 108/60 93
04/11/25 11:42 04/11/25 11:42 04/11/25 11:42 04/11/25 11:42 04/11/25 04:33
Cardiovascular:: Regular rate and rhythm
Respiratory:: Bilateral: Coarse (decreased breath sounds to bases)
Lung Excursion:: Normal
Abdomen:: Nontender and Soft
Extremity Edema:: +1: Bilateral: (trace)
Lomeli Catheter: No
[2025-04-11] MEDS: NOVOLOG FLEXPEN-LOW RESISTANCE 3 UNITS SC (13:12)
[2025-04-11] MEDS: STERILE WATER FOR INJECTION 10 ML IV (15:51)
[2025-04-11] MEDS: ROCEPHIN 1000 MG IV (15:51)
[2025-04-11 16:47] LABS: Glucose - Point of Care 179 mg/dl (70-99)
[2025-04-11] MEDS: NOVOLOG FLEXPEN 10 UNITS SC (16:47)
--- NOTE | 2025-04-11 18:58 | PTCARENOTE ---
~3583-0991: Handoff report received form nightshift RN. Bed/chair alarm in place for safety. Pt AOx4, SB/NSR 50s-60s, SBP 100s, RA satting 92%, lungs diminished in bases. Pt denies pain at this time. +1 pedal edema/ trace BLE edema. +2/+1 pulses.
Compression socks applied to BLE. Ax1 walker OOB for breakfast. Informed cardiology about low K+ and low Na+ on lab work this am, K+ repleation ordered. Creat was also up this AM, cardiology informed and lasix held. All needs met at this time, call
lopez within reach.
~[id number]: No change from previous assessment. Patient washed up in chair, miconazole powder applied under b/l breasts, MASD noted. Patient reminded to order lunch. All needs met at this time, call lopez within reach.
~9020-4363: No changes from previous assessment. Patient ambulated to waiting room and sat for about 45 mins then abulated back to room, appeared to tolerate well. I/Os charted. VSS at this time. All needs met, call lopez within reach.
~4687-5858: No change from previous assessment. VSS, no c/o pain. Standby assist with walker to bathroom. I/Os charted. All needs met at this time, call lopez within reach. Handoff report given to nightshift RN
--- NOTE | 2025-04-11 20:32 | PTCARENOTE ---
Rec'd pt at change of shift. PT AAO*3, VSS, and SR with BBB + 1st degree on tele monitor. Pt denies any pain or discomfort. Pt instructed on fluid restriction and verbalized understanding. Pt resting with call lopez in reach. See MAR and
flowchart for full pt care and assessment.
[2025-04-11 22:35] LABS: Glucose - Point of Care 169 mg/dl (70-99)
[2025-04-12] VITALS (10 sets, daily range): BP systolic 87–115; BP diastolic 50–71; PULSE 63; O2SAT 99; BMI 28.7
[2025-04-12 05:12] LABS: Hematocrit 32.7 % (37.0-47.0); Hemoglobin 11.0 g/dL (12.0-16.0); Mean Corp Hgb Conc. 33.6 g/dL (33.0-37.0); Mean Corpuscular Volume 85.8 fL (81.0-99.0); Platelet Count 236 10^3/uL (130-400); Red Cell Dist. Width 13.1 % (11.5-14.5)
[2025-04-12 05:44] LABS: Blood Urea Nitrogen 60 mg/dl (7-17); Calcium 9.2 mg/dl (8.4-10.2); Carbon Dioxide 32 mmol/L (22-30); Chloride 96 mmol/L (98-107); Estimated Creatinine Clearance 26 ml/min; Glucose 111 mg/dl (70-99); Potassium 3.9 mmol/L (3.5-5.1); Sodium 133 mmol/L (135-145); eGFR 37.56
[2025-04-12 07:43] LABS: Glucose - Point of Care 153 mg/dl (70-99)
[2025-04-12] MEDS: LANTUS 0.25 UNITS SC (08:52)
[2025-04-12] MEDS: NOVOLOG FLEXPEN-LOW RESISTANCE 1 UNITS SC ×2 (08:54→13:20)
[2025-04-12] MEDS: NOVOLOG FLEXPEN 10 UNITS SC ×3 (08:54→18:21)
[2025-04-12] MEDS: LOW STRENGTH ASPIRIN 81 MG PO (08:55)
[2025-04-12] MEDS: ELIQUIS 2.5 MG PO ×2 (08:55→21:07)
[2025-04-12] MEDS: COREG 3.125 MG PO ×2 (08:55→21:07)
[2025-04-12] MEDS: CRESTOR 20 MG PO (08:56)
[2025-04-12] MEDS: DESENEX/MITRAZOL/ZEASORB 1 APPLIC TOPICAL ×2 (08:56→21:07)
[2025-04-12] MEDS: PACERONE 200 MG PO ×2 (08:56→21:06)
--- NOTE | 2025-04-12 09:04 | W.PN.CARDCBS ---
Addendum entered and electronically signed by Santiago Fields MD 04/12/25 14:04:
84-year-old woman with recent discovered decrease EF to 35%, with subsequent relatively abrupt severe dyspnea on exertion, admitted from the office 03/30/2025, underlying rhythm possibly atrial tachycardia and subsequently atrial fibrillation.
Cardiac catheterization showed cardiac index of 2, wedge pressure 28, 50-70% mid LAD stenosis, circumflex with tandem 60 and 50% stenosis proximal and mid, obtuse marginal with 50% mid and 80% distal stenosis, proximal RCA was 60-65% stenosis, PDA
with 60% stenosis, posterolateral 80% stenosis, treated with milrinone for several days post cath.
PMH: Right bundle branch block with left anterior fascicular block, diabetes, hypercholesterolemia, hypertension, stroke of right posterior cerebral artery, in retrospect possibly cardioembolic, occluded right SFA
Current meds: Rosuvastatin 20 mg a day, amiodarone 200 mg twice daily, carvedilol 3.125 mg twice daily, apixaban 2.5 mg twice daily, aspirin 81 mg a day, Lantus, furosemide 40 mg a day
112/53, pulse 55, respiratory rate 15, afebrile weight is 66.7 kg if accurate down 1.2 kg, peak weight was 72.1 kg during this hospital stay, head neck exam unremarkable, lungs are clear, JVD okay, soft systolic murmur at apex, improved from earlier
in hospital stay, trace to 1+ edema
Hemoglobin 11.0, sodium is 133, BUN and creatinine are 16 and 1.4, potassium is 3.9, Baseline creatinine was 1
Follow-up echo: EF 25-30%, global hypo-, inferior and inferolateral akinesis, severe mitral regurgitation
Impression:
Acute HFrEF
Paroxysmal atrial tachycardia/atrial fibrillation with RVR, new diagnosis of unclear duration, suspected paroxysmal
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
Cardiomyopathy, EF 35% by echo 02/2025
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
History of CVA 2023
DM2
HTN
HLD
PAD with prior occluded R SFA
Hypokalemia
Hyponatremia
L&RHC 04/01/2025: LM: Normal. LAD: Long 50 to 70% stenosis in mid portion beyond first diagonal extending into mid LAD beyond second diagonal. Circumflex: Tandem 50 and 60% stenosis in proximal and midportion. OM branch 50% mid and 80% distal
stenosis. RCA: 60 to 65% proximal stenosis. RPDA 60% proximal stenosis and RPL branch 80% stenosis
ECHO 04/17/24: EF 55%, aortic sclerosis, mild to moderate MR
ECHO 03/05/25: EF 35%, septal dyskinesis consistent with bundle branch block, mild LVH with moderate to severe basal septal hypertrophy, grade 1 diastolic dysfunction, moderate MR, trace TR
Echo 03/31/2025: EF 22%, bilateral pleural effusions noted, MR worsened from moderate to severe, global hypokinesis with inferolateral, mid anteroseptal, anterior, lateral, apical akinesis, no sign of LV clot, mild to moderate LVH with septum
measuring 1.5 cm, mild TR, PAP 45 mmHg
Echo 04/09/2025: EF 25 to 30%, global hypokinesis with inferior and inferolateral akinesis, severe MR
Plan:
Overall she looks well, volume status is reasonable. She is on furosemide 40 mg a day.
No angina, plan is for medical management of CAD.
She remains in sinus rhythm.
Currently not on JACKELYN/ARB, MRA related to renal function. These could be considered as an outpatient.
Would favor SGLT 2 antagonist if okay with renal and if not cost prohibitive. Case management to [place].
Discharge planning, hopefully ready for discharge April 13.
We will arrange for cardiac follow-up.
Original Note:
Today's Communication / Plan
-
Continue PO lasix 40mg daily per nephro
Continue amiodarone 200mg BID x 2 weeks, then decrease to 200mg daily thereafter
Follow BMP, borderline for Eliquis dosing. Currently on 2.5mg BID.
CM to assess cost for SGLT2i
Follow up has been arranged.
Impression / Plan
-
Please see office note dated 03/30/25 to serve as H&P
Primary Development Scientist: Dr. ALEX Fields
Assessment:
Presentation 03/2025 with SOB, palpitations
Acute HFrEF
Paroxysmal atrial tachycardia/atrial fibrillation with RVR, new diagnosis of unclear duration, suspected paroxysmal
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
Cardiomyopathy, EF 35% by echo 02/2025
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
History of CVA 2023
DM2
HTN
HLD
PAD with prior occluded R SFA
Hypokalemia
Hyponatremia
L&RHC 04/01/2025: LM: Normal. LAD: Long 50 to 70% stenosis in mid portion beyond first diagonal extending into mid LAD beyond second diagonal. Circumflex: Tandem 50 and 60% stenosis in proximal and midportion. OM branch 50% mid and 80% distal
stenosis. RCA: 60 to 65% proximal stenosis. RPDA 60% proximal stenosis and RPL branch 80% stenosis
ECHO 04/17/24: EF 55%, aortic sclerosis, mild to moderate MR
ECHO 03/05/25: EF 35%, septal dyskinesis consistent with bundle branch block, mild LVH with moderate to severe basal septal hypertrophy, grade 1 diastolic dysfunction, moderate MR, trace TR
Echo 03/31/2025: EF 22%, bilateral pleural effusions noted, MR worsened from moderate to severe, global hypokinesis with inferolateral, mid anteroseptal, anterior, lateral, apical akinesis, no sign of LV clot, mild to moderate LVH with septum
measuring 1.5 cm, mild TR, PAP 45 mmHg
Echo 04/09/2025: EF 25 to 30%, global hypokinesis with inferior and inferolateral akinesis, severe MR
Plan:
-Seen in office 03/30 as a new patient and sent to ER as complained of shortness of breath, with heart rate in the 130s and echo from 03/05/2025 showing new EF of 35%.
-Troponin peaked at 1.7. No chest pain. Repeat echo this admission with EF 22% and MR worsened from moderate to severe with bilateral pleural effusions noted.
-Complex admission, as she required milrinone earlier in admission, CI was 2 on 04/01 while on milrinone, stopped 04/04.
-Underwent C 04/01/2025 with MV CAD involving LAD, circumflex, RCA.
-CT surgery consulted, patient not felt to be a good surgical candidate. Could consider high risk LAD PCI if fails medical therapy, however is largely asymptomatic without chest pain and LAD disease is diffuse.
-Continue aspirin 81mg daily.
-Diuresed with IV lasix 60mg BID and metolazone 2.5. Nephrology following. Creat bumped to 1.7 on 04/11 and lasix held. Now back on PO lasix 40mg daily per nephro. Creat 1.4 on 04/12.
-Weight 147 lbs 04/12. Down 6lbs this admission.
-Has had both atach as well as PAF since admission. Continue amiodarone 200mg BID for 2 weeks then decrease to 200mg daily.
-Currently on Eliquis at decreased dose of 2.5mg BID, however remains borderline for dosing. Continue to monitor closely.
-GDMT has been limited by renal function. Continues on Coreg 3.125mg BID. Will have CM assess cost of SGLT2i. May consider adding as OP if renal function stable.
-LDL 35. Continue Crestor.
-High risk for readmission. Cardiology follow up has been arranged.
Progress Note - Development Scientist
Subjective
Date of Service: April 12, 2025
No chest pain
Objective
Labs:
04/12/25 05:00
04/12/25 05:00
Labs
Hgb 11.0 g/dL (12.0-16.0) L 04/12/25 05:00
Hct 32.7 % (37.0-47.0) L 04/12/25 05:00
Plt Count 236 10^3/uL (130-400) 04/12/25 05:00
PT 16.0 Sec (11.4-14.6) H 03/30/25 13:46
INR 1.26 03/30/25 13:46
APTT 84.3 Sec (23.4-35.0) H 04/03/25 12:10
Sodium 133 mmol/L (135-145) L 04/12/25 05:00
Potassium 3.9 mmol/L (3.5-5.1) D 04/12/25 05:00
BUN 60 mg/dl (7-17) H 04/12/25 05:00
Creatinine 1.4 mg/dL (0.6-1.0) H 04/12/25 05:00
Glucose 111 mg/dl (70-99) H 04/12/25 05:00
Vital Signs and I&O:
Vital Signs
Temp Pulse Resp BP Pulse Ox
98.1 F 55 15 112/53 98
04/12/25 07:28 04/12/25 06:00 04/12/25 07:28 04/12/25 04:51 04/12/25 07:28
Vital Signs
Temp Pulse Resp BP Pulse Ox
98.1 F 55 15 112/53 98
04/12/25 07:28 04/12/25 06:00 04/12/25 07:28 04/12/25 04:51 04/12/25 07:28
Intake & Output
04/10/25 04/11/25 04/12/25 04/13/25
06:59 06:59 06:59 06:59
Intake Total 990 / 990 180 / 180 480 / 480
Output Total 4050 / 4050 2600 / 2600 1375 / 1375
Balance -3060 / -3060 -2420 / -2420 -895 / -895
Physical Exam
Physical Exam
GEN: No distress
LUNGS: no audible wheeze
CV: SR on tele
--- NOTE | 2025-04-12 09:15 | W.PN.HOSP.TC ---
Today's Communication/Plan
-
Diuresis. Discharge planning
Assessment / Plan
Assessment / Plan
Physical exam:
General: chronically ill looking
HEENT: Normocephalic, Atraumatic and Moist Mucous Membranes
Respiratory: Clear to auscultation bilaterally; Negative Wheezes, Rales or Rhonchi
Cardiac: Regular Rhythm and S1/S2
GI: Soft, Nontender and Nondistended
Musculoskeletal: No Clubbing, No Cyanosis and No Edema
Neuro: Awake, Alert and Oriented X3, no neurological deficits
Psych: Calm
A/P:
Acute HFrEF:
Switch to oral Lasix 40 mg p.o. daily from today on
Echocardiogram shows EF of 22% (it was 35% prior) and other multiple abnormalities.
Appreciate cardiology help
PT OT eval recommended home health
Transfer out of IVU today
Palliative care consult for goals of care discussion
Plan to discharge tomorrow
Acute NSTEMI with multivessel CAD:
Continue medical management
Off heparin drip
Continue aspirin and statin
Started on low dose Coreg
Status post left heart cath and right heart cath on 04/01
Cardiogenic shock:
Resolved
off milrinone drip
Incidental finding on CT
Left adrenal gland mass, with attenuation value suggesting a left adrenal adenoma with a high degree of confidence
I d/w pt, I recommend OP follow up with primary, likely need further images for left adrenal mass.
Paroxysmal A-fib:
Continue Eliquis
On loading doses of amiodarone 200 mg twice a day, plan to change to 200 mg QD upon dc. Started on BB, carvedilol 3.125 mg twice a day.
JOON:
Creatinine 1.4 today
Reviewed kidney ultrasound
Avoid nephrotoxic
Nephrology consult appreciated
Monitored renal function closely
UTI:
E. coli in the urine culture pending sensitivity
Switch IV ceftriaxone to oral cephalexin renally dose today.
Probably hold off on SGLT2I for now
Sudden onset of dizziness and double vision on 03/31:
Resolved
she feels weak in general
Neurology evaluated the patient and MRI of the brain no acute ischemic finding
Hyponatremia:
Improving
Sodium 133 today
Continue to monitor closely
Hypokalemia:
Resolved
Anemia:
Stable HGB
Hemoglobin 11 today
Hyperlipidemia:
Continue home statin
Diabetes mellitus type 2:
Overall better control
Change diet to 1800 branden diabetic diet and low-cholesterol
Currently on Lantus 25 units daily and NovoLog 10 units before meals
Peripheral vascular disease:
On aspirin and statin
DVT prophylaxis:
Eliquis
CODE STATUS:
Full code
Total time spent on today's encounter was 52 minutes which included time spent in counseling the patient/family regarding diagnosis and treatment plan as listed above, goals of care, and symptom management. Case was discussed with nursing staff,
specialists, and care coordinators/case management. All labs and imaging personally reviewed by me. Remainder the time spent in detailed review of previous records, lab data, imaging, and other medical provider documentation.
Anticipated Discharge: Within 24 hours
Subjective/Interval History
-
Date of Service: April 12, 2025
Patient feels no short of breath overall. Still has some limitations on exertion but as expected. Afebrile
Objective Data
-
Labs:
Laboratory Results
04/12/25
05:00
WBC 8.3
Hgb 11.0 L
Hct 32.7 L
Plt Count 236
Sodium 133 L
Potassium 3.9 D
Chloride 96 L
Carbon Dioxide 32 H
BUN 60 H
Creatinine 1.4 H
Glucose 111 H
Calcium 9.2
Vital Signs:
Vital Signs
Temp Pulse Resp BP Pulse Ox
98.1 F 55 15 112/53 98
04/12/25 07:28 04/12/25 06:00 04/12/25 07:28 04/12/25 04:51 04/12/25 07:28
I&O
04/11/25 04/12/25 04/13/25
06:59 06:59 06:59
Intake Total 180 / 180 480 / 480
Output Total 2600 / 2600 1375 / 1375
Balance -2420 / -2420 -895 / -895
--- NOTE | 2025-04-12 10:29 | W.PN.NEPH.PH ---
Today's Communication / Plan
-
follow BMP
Assessment/Plan
-
IMP:
Acute HFrEF
Echocardiogram shows EF of 22% (it was 35% prior)
Elevated troponin likely acute NSTEMI
Cardiogenic shock-On milrinone drip
Paroxysmal A-fib
JOON
Sudden onset of dizziness and double vision on 03/31
h/o CVA
Hyponatremia
Anemia
Leukocytosis
Hypertension
Hyperlipidemia
Diabetes mellitus type 2
Peripheral vascular disease
left adrenaloma
Plan:
follow BMP
po lasix 40mg daily at least
-
-
Date of Service: April 12, 2025
CC / HPI / ROS
-
Chief Complaint:
JOON
History of Present Illness:
JOON/Cr down to 1.4
Na up to 133
Hemodynamically stable
K better
Review of Systems:
nonoliguric
no CP/SOB
Labs
-
Labs:
WBC 8.3 10^3/uL (4.8-10.8) 04/12/25 05:00
RBC 3.81 10^6/uL (4.20-5.40) L 04/12/25 05:00
Hgb 11.0 g/dL (12.0-16.0) L 04/12/25 05:00
Hct 32.7 % (37.0-47.0) L 04/12/25 05:00
Plt Count 236 10^3/uL (130-400) 04/12/25 05:00
Sodium 133 mmol/L (135-145) L 04/12/25 05:00
Potassium 3.9 mmol/L (3.5-5.1) D 04/12/25 05:00
Chloride 96 mmol/L (98-107) L 04/12/25 05:00
Carbon Dioxide 32 mmol/L (22-30) H 04/12/25 05:00
BUN 60 mg/dl (7-17) H 04/12/25 05:00
Creatinine 1.4 mg/dL (0.6-1.0) H 04/12/25 05:00
eGFR 37.56 04/12/25 05:00
Glucose 111 mg/dl (70-99) H 04/12/25 05:00
Calcium 9.2 mg/dl (8.4-10.2) 04/12/25 05:00
Bdj-R-Cgdxkzforge Pept 72976 pg/ml 04/05/25 02:12
Albumin 4.5 g/dl (3.5-5.0) 03/30/25 13:46
Physical Exam
-
Vital Signs:
Vital Signs
Temp Pulse Resp BP Pulse Ox
98.1 F 55 15 112/53 98
04/12/25 07:28 04/12/25 06:00 04/12/25 07:28 04/12/25 04:51 04/12/25 07:28
Cardiovascular:: Regular rate and rhythm
Respiratory:: Bilateral: Coarse
Lung Excursion:: Normal
Abdomen:: Nontender and Soft
Bowel Sounds:: Normal
Extremity Edema:: None: Bilateral:
[2025-04-12 12:36] LABS: Glucose - Point of Care 182 mg/dl (70-99)
--- NOTE | 2025-04-12 12:52 | CM ---
Addendum entered by Anni Brewer 04/12/25 15:37:
Received consult to check on co-pay for Jardiance and Farxiga. Telephone to [facility] to check on co-pay. She still has her deductible that has to be met this year. Jardiance 10 mg po for thirty days is $152.36 a dn Farxiga 10 mg po daily for
thirty day is $145.17 a month. She is agreeable to the Farxiga co-pay. Reviewed Farxiga is going generic soon. She is changing insurance coverage in to [employer].
Original Note:
Reviewed chart. Met with Mrs. Santana to review discharge plans. She states she is feeling better and maybe able to go home soon. We reviewed [facility] and she is still agreeable to [facility]. Telephone call to [facility] Intake to update them on tentative discharge date and sister phone number to call when scheduling the home visit. . Prior to admission she resides alone in a one story home with one step to enter. Prior to admission she was independent with
ambulation and adls. She does not have any DME in the home. She has a prescription plan. Will need to see her current functional level to see if she will have any skilled care needs. Medical work-up in progress. The discharge plan is to
return home with her sister staying with her and [facility] when medically stable.
[2025-04-12] MEDS: LASIX 40 MG PO (13:20)
[2025-04-12] MEDS: KEFLEX 250 MG PO ×2 (13:20→21:06)
[2025-04-12 16:48] LABS: Glucose - Point of Care 226 mg/dl (70-99)
--- NOTE | 2025-04-12 18:02 | W.CON.PAL ---
Consultation
-
Date/Time Consultation Requested: 04/12/25
Date/Time Consultation Performed: 04/12/25
Requesting Provider: Kelvin Ortiz
Performing Provider: Davis Oconnor
Reason for Consult: Goals of Care Discussion
Primary Diagnosis: CHF
Related Diagnosis: JOON
Consult Requested By: Patient's Physician
Reason for Admission
Illness Course/HPI
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
who had presented from cardiology office to the hospital for evaluation of worsened shortness of breath and EKG noted A Flutter. Further W/u revealed reduced EF 22% and severe MR. CXR Noted pulm edema. Pt underwent R. LHC on 04/01 showed PCWP of 28
and MVD. She was evaluated by CT surg and assessment that CABG was too risky and so was placed on medical management+/-PCI. Pt however developed worsening JOON on diuretic theraphy and palliative care was consulted today by hospitalist team as
cardiology had made assessment that prognosis was poor.
Pt was seen today and assessments of nephrology and cardiology discussed with her, I explored what are goals are regarding this admission and overall regarding her condition after sharing that her heart function was on decline and that she was at
risk of further exacerbations. Pt was skeptical of palliative consult as she thinks ' Palliative is for dying people', I shared what palliative care philosophy and scope was with her as an extra level of care in Pts with searious/life changing
illnesses to help improve comfort as well as help with making health decisions according to Pt goals, throughout visit she continually shares that she was otherwise highly functional and had not thought of what would happen if her condition
deteriorated more, I explained that is what palliative medicine helps with, to understand where she is in her clinical trajectory and to help her make choices regarding health care interventions. She however denied symptoms even when told the reason
she was admitted was due to her decompensation, she shares that she has improved since admission so did not understand why she had to make decisions different from status quo. I explored what mattered to her and she shared ' to get back to how I was
before admission and stay in my home', when told that she has declined and now needing assistive device to ambulate as well as having dizziness and S.O.B reported by PT with trying to ambulate her, she believes the hospital with restriction of
movement is reason she has not been ambulating by herself as she was walking without assistive device prior to admission and does not accept it is due to her declined cardiac function, I shared that with cardiac compromise she would have decline in
her otherwise functionality also but she at this time just wants to focus on the medical management offered and be dc home, she shared that she would be giving the matter more thought with involvement of her sons.For now she wants every intervention
that would help her get better including CPR, intubation and escalation of care to ICU.
Functional Status
Pt is deconditioned on admission, she was able to walk independently prior to admission and lived in a ranch style house, living alone, cooking, grocery shoping, driving, managing her own finances and medications, was continent of bowel and bladder.
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
Goals of Care Discussion
-
Individuals Present for Discussion & Relationship to Patient:
Pt and palliative care physician Dr Hunter.
Patient's Information Preferences: Fully Involved/Able to Participate
Patient Goals
GOC discussion as in HPI, Pt at this time wants to focus on the medical management of her CHF/ Cardio-renal syndrome and does not appreciate need for limitations set to LST, she shares that she has never had to think about what would happen if she
gets sicker and thinks she needs time to think about that, She shared she has a durable POA document with both sons listed as health care agents but believes the document is home,she does not want to commit to seeing us in our clinic on dc or we
coming to her home for palliative care services as she wants to think about if she even needs to add that extra level of care. Palliative care package was left for info.
Pain & Symptom Assessment
[place] Symptom Scale 0=none, 10=worst
Pain: 0
Tired: 1
Drowsy: 0
Nausea: 0
Appetite: 0
Shortness of Breath: 0
Depressed: 0
Anxiety: 0
Objective Data
-
Objective Data:
Vital Signs
Temp Pulse Resp BP Pulse Ox
98.1 F 56 16 113/50 96
04/12/25 15:48 04/12/25 16:00 04/12/25 15:48 04/12/25 15:48 04/12/25 15:48
Laboratory Results
04/12/25 05:00
04/12/25 05:00
PT 16.0 Sec (11.4-14.6) H 03/30/25 13:46
INR 1.26 03/30/25 13:46
APTT 84.3 Sec (23.4-35.0) H 04/03/25 12:10
Hemoglobin A1c 6.6 % (4.0-5.9) H 03/31/25 03:09
Total Protein 7.2 g/dl (6.3-8.2) 03/30/25 13:46
Albumin 4.5 g/dl (3.5-5.0) 03/30/25 13:46
TSH 0.87 uIU/ml (0.47-4.68) 03/30/25 20:06
Urine Color Yellow 04/01/25 17:29
Urine Clarity Slightly cloudy (Clear) 04/01/25 17:29
Urine pH 5.0 (5.0-9.0) 04/01/25 17:29
Ur Specific Robinson 1.015 (<1.030) 04/01/25 17:29
Urine Ketones Negative (Negative) 04/01/25 17:29
Urine Bilirubin Negative (Negative) 04/01/25 17:29
Palliative Performance Scale
Palliative Performance Scale:
PPS Level Ambulation Activity & Evidence of Disease Self Care Intake Conscious Level
100% Full Normal Activity & Work; Full Intake Full
No Evidence of Disease
90% Full Normal Activity & Work; Full Normal Full
Some Evidence of Disease
80% Full Normal Activity with Effort Full Normal or Full
Some Evidence of Disease Reduced
70% Reduced Unable Normal Job/Work Full Normal or Full
Significant Disease Reduced
60% Reduced Unable Hobby/Housework Occasional Normal or Full or Confusion
Significant Disease Assistance Reduced
50% Mainly Sit/Lie Unable to do Any Work Considerable Normal or Full or Confusion
Extensive Disease Assistance Req'd Reduced
40% Mainly in Bed Unable to do Most Activity Mainly Assistance Normal or Full or Drowsy;
Extensive Disease Reduced +/- Confusion
30% Totally Bed Unable to do Any Activity Total Care Normal or Full or Drowsy;
Bound Extensive Disease Reduced +/- Confusion
20% Totally Bed Bound Unable to do Any Activity Total Care Minimal to Full or Drowsy;
Extensive Disease Sips +/- Confusion
10% Totally Bed Bound Unable to do Any Activity Total Care Mouth Care Drowsy or Coma;
Extensive Disease Only +/- Confusion
0%
PPS Score Level:
Palliative Performance Score Response
Palliative Performance Score Response: 60%
Physical Exam
-
General: No Apparent Distress and Appears Chronically Ill
HEENT: Normocephalic and Atraumatic
Respiratory: Clear to Auscultation
Cardiac: Regular Rhythm and S1/S2
Peripheral Vascular: Edema, Right Lower Extremity and Edema, Left Lower Extremity
GI: Soft, Nontender and Normal Bowel Sounds
Skin: Warm and Dry
Neuro: Awake and AO x 3
Psych: Calm and Other (not agitaed or anxious.)
Assessment / Plan
-
Assessment/Plan:
84 YO F admitted with extensive cardiovascular hx and admitted with acute decompensated HF who is now on medical mgt of same with severely reduced EF and JOON who palliative was consulted to help with GOC discussion.
Pt at this time wants to focus on short term goals of medical management of her HF and JOON, she trivializes her symptoms to shift focus away from discussions about possible clinical trajectory, she had good functional status prior to admission and
believes that the medical management is helping her get better, information shared about cardiology and nephrology evaluations and she wants to have time to think about further goals of care, palliative care services [facility] info supplied to Pt.
Care Reviewed
Data Reviewed
Chest X ray: Report Reviewed
Echocardiogram: Report Reviewed
Medical Tests: I reviewed
Reviewed with: Patient and Physician
[2025-04-12] MEDS: NOVOLOG FLEXPEN-LOW RESISTANCE 2 UNITS SC (18:21)
[2025-04-12 22:35] LABS: Glucose - Point of Care 156 mg/dl (70-99)
[2025-04-13] MEDS: SENOKOT-S 1 TABLET PO ×2 (01:41→13:55)
[2025-04-13 03:28] VITALS: BP 114/60
[2025-04-13 04:37] LABS: Blood Urea Nitrogen 65 mg/dl (7-17); Calcium 9.1 mg/dl (8.4-10.2); Carbon Dioxide 31 mmol/L (22-30); Chloride 91 mmol/L (98-107); Estimated Creatinine Clearance 23 ml/min; Glucose 194 mg/dl (70-99); Potassium 3.9 mmol/L (3.5-5.1); Sodium 131 mmol/L (135-145); eGFR 32.00
--- NOTE | 2025-04-13 05:09 | PTCARENOTE ---
Pt NSR on monitor, VSS. Pt denies pain. Ambulates with x 1 assist and RW. Safety measures in place
[2025-04-13 06:00] VITALS: BMI 29.4
[2025-04-13 06:34] VITALS: BP 126/64
[2025-04-13 06:52] LABS: Glucose - Point of Care 183 mg/dl (70-99)
[2025-04-13] MEDS: NOVOLOG FLEXPEN-LOW RESISTANCE 1 UNITS SC ×2 (08:20→12:30)
[2025-04-13] MEDS: NOVOLOG FLEXPEN 10 UNITS SC ×2 (08:20→12:31)
--- NOTE | 2025-04-13 08:31 | W.PN.HOSP.TC ---
Today's Communication/Plan
-
Discharge planning
Assessment / Plan
Assessment / Plan
Physical exam:
General: chronically ill looking
HEENT: Normocephalic, Atraumatic and Moist Mucous Membranes
Respiratory: Clear to auscultation bilaterally; Negative Wheezes, Rales or Rhonchi
Cardiac: Regular Rhythm and S1/S2
GI: Soft, Nontender and Nondistended
Musculoskeletal: No Clubbing, No Cyanosis and No Edema
Neuro: Awake, Alert and Oriented X3, no neurological deficits
Psych: Calm
A/P:
Acute HFrEF:
Switch to oral Lasix 40 mg p.o. daily
Echocardiogram shows EF of 22% (it was 35% prior) and other multiple abnormalities.
Appreciate cardiology help
PT OT eval recommended home health
Transfer out of IVU today
Palliative care consult for goals of care discussion
Plan to discharge today
Acute NSTEMI with multivessel CAD:
Continue medical management
Off heparin drip
Continue aspirin and statin
Started on low dose Coreg
Status post left heart cath and right heart cath on 04/01
Cardiogenic shock:
Resolved
off milrinone drip
Incidental finding on CT
Left adrenal gland mass, with attenuation value suggesting a left adrenal adenoma with a high degree of confidence
I d/w pt, I recommend OP follow up with primary, likely need further images for left adrenal mass.
Paroxysmal A-fib:
Continue Eliquis
On loading doses of amiodarone 200 mg twice a day-cardio rec'd cont for 2 weeks then once a day. Started on BB, carvedilol 3.125 mg twice a day.
JOON:
Creatinine stable today
Reviewed kidney ultrasound
Avoid nephrotoxic
Nephrology consult appreciated
Monitored renal function closely
UTI:
E. coli in the urine culture
Switch IV ceftriaxone to oral cephalexin renally dose-only 2 more days orally.
Probably hold off on SGLT2I for now
Sudden onset of dizziness and double vision on 03/31:
Resolved
she feels weak in general
Neurology evaluated the patient and MRI of the brain no acute ischemic finding
Hyponatremia:
Improving
Sodium 133 today
Continue to monitor closely
Hypokalemia:
Resolved
Anemia:
Stable HGB
Hemoglobin stable
Hyperlipidemia:
Continue home statin
Diabetes mellitus type 2:
Overall better control
Change diet to 1800 branden diabetic diet and low-cholesterol
Currently on Lantus 25 units daily and NovoLog 10 units before meals
Peripheral vascular disease:
On aspirin and statin
DVT prophylaxis:
Eliquis
CODE STATUS:
Full code
Anticipated Discharge: Today
Subjective/Interval History
-
Date of Service: April 13, 2025
Feels better overall. Ready to go home today
Objective Data
-
Labs:
Laboratory Results
04/13/25
03:39
Sodium 131 L
Potassium 3.9
Chloride 91 L
Carbon Dioxide 31 H
BUN 65 H
Creatinine 1.6 H
Glucose 194 H
Calcium 9.1
Vital Signs:
Vital Signs
Temp Pulse Resp BP Pulse Ox
97.5 F 66 18 126/64 98
04/13/25 06:34 04/13/25 06:34 04/13/25 06:34 04/13/25 06:34 04/13/25 06:34
I&O
04/12/25 04/13/25 04/14/25
06:59 06:59 06:59
Intake Total 480 / 480 150 / 150
Output Total 1375 / 1375 1300 / 1300
Balance -895 / -895 -1150 / -1150
--- NOTE | 2025-04-13 09:05 | W.PN.CARDCBS ---
Addendum entered and electronically signed by Santiago Fields MD 04/13/25 18:19:
Patient interviewed and examined.
Note below reviewed in detail and agree, unless otherwise specified.
120/55, pulse 60, respiratory rate 18, afebrile, sats 98%, head neck exam unremarkable, lungs are clear, regular rate and rhythm without obvious murmurs abdomen benign 1+ edema with Tubigrip's in place
Sodium is 131, potassium is 3.9, chloride is 91, CO2 is 31, creatinine is 1.6
Medications reviewed
She has follow-up with us on April 20.
Okay for discharge.
Original Note:
Today's Communication / Plan
-
Continue oral diuresis per nephrology
Replete potassium
BMP 5 to 7 days after discharge (lab slip placed on chart)
Continue Coreg, Rosuvastatin
To consider [facility] as outpatient once UTI has resolved
Check EKG today to reassess QTc prior to discharge on amiodarone 200 mg twice daily x 2 weeks then once daily
Impression / Plan
-
Please see office note dated 03/30/25 to serve as H&P
Primary Tape Cutting Machine Operator: Dr. ALEX Fields
Assessment:
Presentation 03/2025 with SOB, palpitations
Acute HFrEF
Paroxysmal atrial tachycardia/atrial fibrillation with RVR, new diagnosis of unclear duration, suspected paroxysmal
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
Cardiomyopathy, EF 35% by echo 02/2025
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
History of CVA 2023
DM2
HTN
HLD
PAD with prior occluded R SFA
Hypokalemia
Hyponatremia
L&RHC 04/01/2025: LM: Normal. LAD: Long 50 to 70% stenosis in mid portion beyond first diagonal extending into mid LAD beyond second diagonal. Circumflex: Tandem 50 and 60% stenosis in proximal and midportion. OM branch 50% mid and 80% distal
stenosis. RCA: 60 to 65% proximal stenosis. RPDA 60% proximal stenosis and RPL branch 80% stenosis
ECHO 04/17/24: EF 55%, aortic sclerosis, mild to moderate MR
ECHO 03/05/25: EF 35%, septal dyskinesis consistent with bundle branch block, mild LVH with moderate to severe basal septal hypertrophy, grade 1 diastolic dysfunction, moderate MR, trace TR
Echo 03/31/2025: EF 22%, bilateral pleural effusions noted, MR worsened from moderate to severe, global hypokinesis with inferolateral, mid anteroseptal, anterior, lateral, apical akinesis, no sign of LV clot, mild to moderate LVH with septum
measuring 1.5 cm, mild TR, PAP 45 mmHg
Echo 04/09/2025: EF 25 to 30%, global hypokinesis with inferior and inferolateral akinesis, severe MR
Plan:
-Seen in office 03/30 as a new patient and sent to ER as complained of shortness of breath, with heart rate in the 130s and echo from 03/05/2025 showing new EF of 35%.
-Troponin peaked at 1.7. No chest pain. Repeat echo this admission with EF 22% and MR worsened from moderate to severe with bilateral pleural effusions noted.
-Complex admission, as she required milrinone earlier in admission, CI was 2 on 04/01 while on milrinone, stopped 04/04.
-Underwent C 04/01/2025 with MV CAD involving LAD, circumflex, RCA.
-CT surgery consulted, patient not felt to be a good surgical candidate. Could consider high risk LAD PCI if fails medical therapy, however is largely asymptomatic without chest pain and LAD disease is diffuse. Continue medical management for CAD
-Continue aspirin 81mg daily.
-Diuresed with IV lasix 60mg BID and metolazone 2.5. Nephrology following. Creat bumped to 1.7 on 04/11. Transitioned back on PO lasix 40mg daily per nephro. Creat 1.6 on 04/13. New baseline appears to 1.3-1.5
-Replete potassium. Patient will need BMP as outpatient in 5 to 7 days
-Weight 150 lbs 04/13. Down 6lbs this admission.
-Has had both atach as well as PAF since admission. Check EKG today to reassess QTc prior to discharge on amiodarone 200 mg twice daily x 2 weeks then once daily
-Currently on Eliquis at decreased dose of 2.5mg BID, however remains borderline for dosing. Continue to monitor closely.
-GDMT has been limited by renal function. Continues on Coreg 3.125mg BID.
-Per case management Farxiga $152 a month. Patient agreeable to co-pay. Patient found to have UTI late in admission with ongoing treatment with antibiotics. Will consider initiation of Farxiga as outpatient once UTI has resolved
-LDL 35. Continue Crestor.
-Appreciate palliative care input. Patient continues to request full CODE STATUS. Not willing to commit to palliative care at this time.
-High risk for readmission. Cardiology follow up has been arranged.
Progress Note - Tape Cutting Machine Operator
Subjective
Date of Service: April 13, 2025
Patient seen and examined. Patient sitting in chair. Patient reports she is feeling well. She is eager to go home.
Objective
Labs:
04/12/25 05:00
04/13/25 03:39
Labs
Hgb 11.0 g/dL (12.0-16.0) L 04/12/25 05:00
Hct 32.7 % (37.0-47.0) L 04/12/25 05:00
Plt Count 236 10^3/uL (130-400) 04/12/25 05:00
PT 16.0 Sec (11.4-14.6) H 03/30/25 13:46
INR 1.26 03/30/25 13:46
APTT 84.3 Sec (23.4-35.0) H 04/03/25 12:10
Sodium 131 mmol/L (135-145) L 04/13/25 03:39
Potassium 3.9 mmol/L (3.5-5.1) 04/13/25 03:39
BUN 65 mg/dl (7-17) H 04/13/25 03:39
Creatinine 1.6 mg/dL (0.6-1.0) H 04/13/25 03:39
Glucose 194 mg/dl (70-99) H 04/13/25 03:39
Vital Signs and I&O:
Vital Signs
Temp Pulse Resp BP Pulse Ox
97.5 F 66 18 126/64 98
04/13/25 06:34 04/13/25 06:34 04/13/25 06:34 04/13/25 06:34 04/13/25 06:34
Vital Signs
Temp Pulse Resp BP Pulse Ox
97.5 F 66 18 126/64 98
04/13/25 06:34 04/13/25 06:34 04/13/25 06:34 04/13/25 06:34 04/13/25 06:34
Intake & Output
04/11/25 04/12/25 04/13/25 04/14/25
06:59 06:59 06:59 06:59
Intake Total 180 / 180 480 / 480 150 / 150
Output Total 2600 / 2600 1375 / 1375 1300 / 1300
Balance -2420 / -2420 -895 / -895 -1150 / -1150
Physical Exam
Physical Exam
GEN: No distress, awake, Ox3
HEENT: supple, anicteric, mmm
LUNGS: CTA, no wheezes/rales
CV: Reg, S1/S2, 2/6 syst murmur
ABD: soft, BS+, NT/ND
EXT: No edema, clubbing or cyanosis, Tubigrip knee-high's in place
NEURO: Gross non-focal
SKIN: No rash
[2025-04-13] MEDS: COREG 3.125 MG PO (09:20)
[2025-04-13] MEDS: PACERONE 200 MG PO (09:21)
[2025-04-13] MEDS: CRESTOR 20 MG PO (09:21)
[2025-04-13] MEDS: ELIQUIS 2.5 MG PO (09:21)
[2025-04-13] MEDS: LASIX 40 MG PO (09:22)
[2025-04-13] MEDS: LOW STRENGTH ASPIRIN 81 MG PO (09:22)
[2025-04-13] MEDS: KEFLEX 250 MG PO (09:22)
[2025-04-13] MEDS: LANTUS 0.25 UNITS SC (09:27)
[2025-04-13] MEDS: DESENEX/MITRAZOL/ZEASORB 1 APPLIC TOPICAL (09:30)
--- NOTE | 2025-04-13 10:13 | CM ---
Reviewed chart. Met with Mrs. Santana to review discharge plans. She states he is feeling well and maybe able to go home soon. We reviewed [facility] and she is agreeable to [facility]. Prior to admission she resides
alone in a one story home with one step to enter. Prior to admission she was independent with ambulation and adls. She does not have any DME in the home. She has a prescription plan. Will need to see her current functional level to see if she
will have any skilled care needs. Medical work-up in progress. The discharge plan is to return home with her sister staying with her and [facility] when medically stable.
[2025-04-13] MEDS: KCL 20 MEQ PO (10:47)
[2025-04-13 11:04] VITALS: BP 120/55
--- NOTE | 2025-04-13 12:05 | W.DCSUMMARY ---
Discharge Summary
Discharge Data
Date of Admission: 03/30/25
Date of Discharge: 04/13/25
Total time spent discharging patient (in min): 40
-
Pending Results: No
Hospital Course
Patient 84 years old female with extensive past medical history some of which include PVD, CVA, hypertension, diabetes mellitus, CHF, atrial flutter, presented to the hospital with heart failure exacerbation, NSTEMI, and course complicated with
cardiogenic shock. Cardiology consulted. Patient was treated with inotropics, diuretics, multiple adjustment of her cardiac regimen. She also underwent cardiac catheterization and was found to have multivessel CAD and CT surgery evaluated the
patient and felt that she was not a candidate for surgery. Cardiology opted for optimization of her medical management. Course complicated with mental status changes and sudden onset of neurological deficits for which neurology saw the patient and
part of her workup revealed no evidence of stroke. Patient also had JOON and nephrology evaluated the patient throughout his hospital stay. She had a prolonged hospitalization and we also asked palliative care evaluation. At the moment patient is
focused on restorative medical treatment and would probably consider outpatient palliative approach. She participated with PT OT recommended home health. I did ask case management coordinator to arrange for home health services upon discharge. Otherwise,
patient is hemodynamically stable and feels symptomatically much back to her baseline at the moment. She has been cleared by cardiology and nephrology for discharge. She will be discharged in stable condition today.
Discharge duration: 40 minutes
Discharge Plan
-
Patient Disposition: Home with Home Care
Discharge Diagnosis/Procedures: Acute on chronic systolic congestive heart failure
Multivessel coronary artery disease
Paroxysmal atrial fibrillation
Diet: 2 Gram Sodium and Restrict fluids to 48 oz
Activity: As tolerated
Driving Restrictions: As prior to admission
Blood Work: BMP 5-7 days after discharge (lab slip provided)
Other Services: VN and PT
Specialty Instructions: Weigh Daily- Call MD for wt gain/loss 3 lbs overnight/5 lbs in 1 week
Instructions: *DCA Heart Failure Instructions
Stand Alone Forms: DC Instructions- Cath/EP Lab
Referrals:
[facility] [Outside]
Lorin Lee PA-C [Specified Professional Personl, Cardiology] - 04/20/25 11:00 am
Sajan Atwood MD [Active, Nephrology] - in one to two weeks
Karla Pringle MD [Family Provider] - in less than 1 week
Davis Hunter MD [Active, Palliative Care] - in four to six weeks
Additional Discharge Medication Instructions: You will be on amiodarone 200 mg twice a day for 2 weeks and then afterwards you will take 200 mg once a day indefinitely. Also you will take aspirin 81 mg daily and anticoagulant Eliquis 2.5 mg twice a
day. He will finish antibiotics for a course of 2 more days. Your insulin doses has been adjusted to Lantus 25 units daily and insulin aspart 10 units before each meal and discontinue prior oral diabetic meds.
Prescriptions:
New
cephalexin 250 mg Capsule
250 mg PO BID 2 Days Qty: 4 0RF
carvedilol 3.125 mg Tablet
3.125 mg PO BID 30 Days Qty: 60 0RF
Eliquis 2.5 mg Tablet
2.5 mg PO BID 30 Days Qty: 60 0RF
amiodarone [Pacerone] 200 mg Tablet
200 mg PO BID 14 Days Qty: 28 0RF
insulin aspart U-100 100 unit/mL (3 mL) Insulin Pen
10 unit SC AC Qty: 15 0RF
amiodarone 200 mg tablet
200 mg PO DAILY 30 Days Qty: 30 0RF
Rx Instructions:
Start 200 mg once a day on 04/28/2025 after finishing the twice a day dosing.
Continued
aspirin 81 mg Tablet,Chewable
81 mg PO DAILY Qty: 0 0RF
rosuvastatin 20 mg tablet
20 mg PO DAILY
Changed
insulin glargine [Lantus Solostar U-100 Insulin] 100 unit/mL (3 mL) insulin pen
25 unit SC DAILY Qty: 15 0RF
Discontinued
lisinopril 2.5 mg Tablet
2.5 mg PO DAILY
metformin 1,000 mg Tablet
1,000 mg PO BID@0800,1700 Qty: 60 0RF
glipizide 5 mg tablet
2.5 mg PO DAILY
Discharge Orders:
Discharge Patient (As Directed); Ordered 04/13/25
Ordered By: Kelvin Ayala
Care Plan Goals
Care Plan Goals:
Problem: Readiness for enhanced knowledge related to diagnosis and treatment plan
Goal: Understand your diagnosis and treatment plan needs, including medications if applicable.
Instructions: Know your diagnosis, underlying causes and treatment plan options, including medications if applicable. Consult with your health care team to learn about your diagnosis and treatment plan, including medications if applicable.
Discharge Date and Time
Discharge Date/Time: 04/13/25 13:59
Print Language: [id number]
--- NOTE | 2025-04-13 12:11 | W.PN.NEPH.PH ---
Today's Communication / Plan
-
dc planning
Assessment/Plan
-
IMP:
Acute HFrEF
Echocardiogram shows EF of 22% (it was 35% prior)
Elevated troponin likely acute NSTEMI
Cardiogenic shock-On milrinone drip
Paroxysmal A-fib
JOON
Sudden onset of dizziness and double vision on 03/31
h/o CVA
Hyponatremia
Anemia
Leukocytosis
Hypertension
Hyperlipidemia
Diabetes mellitus type 2
Peripheral vascular disease
left adrenaloma
Plan:
follow BMP
po lasix 40mg daily
daily weights
BMP next week
SGLT2i as OP
-
-
Date of Service: April 13, 2025
CC / HPI / ROS
-
Chief Complaint:
JOON
History of Present Illness:
JOON/Cr stable 1.6
Na stable 131
Hemodynamically stable
K better 3.9
Review of Systems:
nonoliguric
no CP/SOB
Labs
-
Labs:
WBC 8.3 10^3/uL (4.8-10.8) 04/12/25 05:00
RBC 3.81 10^6/uL (4.20-5.40) L 04/12/25 05:00
Hgb 11.0 g/dL (12.0-16.0) L 04/12/25 05:00
Hct 32.7 % (37.0-47.0) L 04/12/25 05:00
Plt Count 236 10^3/uL (130-400) 04/12/25 05:00
Sodium 131 mmol/L (135-145) L 04/13/25 03:39
Potassium 3.9 mmol/L (3.5-5.1) 04/13/25 03:39
Chloride 91 mmol/L (98-107) L 04/13/25 03:39
Carbon Dioxide 31 mmol/L (22-30) H 04/13/25 03:39
BUN 65 mg/dl (7-17) H 04/13/25 03:39
Creatinine 1.6 mg/dL (0.6-1.0) H 04/13/25 03:39
eGFR 32.00 04/13/25 03:39
Glucose 194 mg/dl (70-99) H 04/13/25 03:39
Calcium 9.1 mg/dl (8.4-10.2) 04/13/25 03:39
Rdp-V-Psridzrvwnh Pept 91576 pg/ml 04/05/25 02:12
Albumin 4.5 g/dl (3.5-5.0) 03/30/25 13:46
Physical Exam
-
Vital Signs:
Vital Signs
Temp Pulse Resp BP Pulse Ox
97.5 F 60 18 120/55 98
04/13/25 11:04 04/13/25 12:01 04/13/25 11:04 04/13/25 11:04 04/13/25 11:04
Cardiovascular:: Regular rate and rhythm
Respiratory:: Bilateral: CTA
Lung Excursion:: Normal
Abdomen:: Nontender and Soft
Bowel Sounds:: Normal
Extremity Edema:: None: Bilateral:
[2025-04-13 12:13] LABS: Glucose - Point of Care 157 mg/dl (70-99)
--- NOTE | 2025-04-13 13:34 | PTCARENOTE ---
Discharge instructions reviewed with Pt and her sister, they expressed understanding.
== END 2025-04-13 13:59 | disposition home health service (06) | DRG 280 ==
LOC: IVU 16:34
PROVIDERS: Internal Medicine; Internal Medicine Cardiovascular Disease; Internal Medicine Interventional Cardiology; Nurse Practitioner Adult Health; Nurse Practitioner Family; Physician Assistant; Registered Nurse Critical Care Medicine; Specialist; Student in an Organized Health Care Education/Training Program; ADMITTING PHYSICIAN Hospitalist; ATTENDING PHYSICIAN Hospitalist; CONSULT PHYSICIAN Internal Medicine; CONSULT PHYSICIAN Psychiatry & Neurology Neurology; CONSULT PHYSICIAN Student in an Organized Health Care Education/Training Program; CONSULT PHYSICIAN Thoracic Surgery (Cardiothoracic Vascular Surgery); EMERGENCY PHYSICIAN Emergency Medicine; FAMILY PHYSICIAN Family Medicine
PROC: B2111ZZ Fluoroscopy of Multiple Coronary Arteries using Low Osmolar Contrast (ICD-10-PCS; 2025-04-01)
PROC: 4A023N8 Measurement of Cardiac Sampling and Pressure, Bilateral, Percutaneous Approach (ICD-10-PCS; 2025-04-01)
DX: I11.0 Hypertensive heart disease with heart failure (principal); I50.23 Acute on chronic systolic (congestive) heart failure; I21.4 Non-ST elevation (NSTEMI) myocardial infarction; R57.0 Cardiogenic shock; I48.4 Atypical atrial flutter; N17.9 Acute kidney failure, unspecified; E87.1 Hypo-osmolality and hyponatremia; N39.0 Urinary tract infection, site not specified; E87.20 Acidosis, unspecified; I48.92 Unspecified atrial flutter; I25.10 Atherosclerotic heart disease of native coronary artery without angina pectoris; I48.0 Paroxysmal atrial fibrillation; Z51.5 Encounter for palliative care; Z79.01 Long term (current) use of anticoagulants; Z79.4 Long term (current) use of insulin; Z79.82 Long term (current) use of aspirin; Z79.899 Other long term (current) drug therapy
CPT/HCPCS: 36600; 70551; 71045; 71046; 71250; 76775; 80048; 80053; 80061; 81003; 81015; 82550; 82570; 82728; 82805; 82962; 83036; 83605; 83735; 83880; 84156; 84300; 84443; 84484; 85025; 85027; 85610; 85730; 86041; 86366; 87077; 87086; 87186; 93005; 93306; 93308; 93321; 93325; 93460; 94640; 96365; 96375; 97110; 97116; 97162; 97167; 97530; 99152; 99153; 99285; C1769; C1894; J2260; Q9950; Q9967

== ENCOUNTER 2025-04-18 19:56 | Emergency (ER) | payer OTHER, SELFPAY ==
[2025-04-18 20:04] VITALS: BP 129/77
[2025-04-18 20:12] VITALS: BP 129/77
[2025-04-18 20:14] VITALS: BP 125/41
[2025-04-18] MEDS: MORPHINE SULFATE 4 MG IV (20:30)
[2025-04-18 20:31] LABS: Hematocrit 35.2 % (37.0-47.0); Hemoglobin 11.2 g/dL (12.0-16.0); Mean Corp Hgb Conc. 31.8 g/dL (33.0-37.0); Mean Corpuscular Volume 91.2 fL (81.0-99.0); Nucleated Red Blood Cells % 0 %; Platelet Count 244 10^3/uL (130-400); Red Cell Dist. Width 13.1 % (11.5-14.5)
--- NOTE | 2025-04-18 20:38 | ED.GENMED ---
History of Present Illness
General
Chief Complaint: CODE
Source: ambulance crew
Time Seen by Provider: 04/18/25 20:38
History of Present Illness
History of Present Illness:
84-year-old female who was recently hospitalized for heart failure. She has been declining over the last few days as per family. She had dinner and approximately 30 minutes later while sitting at the table stated that she felt dizzy and then
collapsed. Family including sister who is a ICU nurse immediately started CPR. Upon EMS arrival patient was in asystole. CPR was continued and patient was given multiple doses of epinephrine. Just prior to presentation here patient obtained
ROSC. Upon arrival here, patient did have a pulse but remained unresponsive and shortly after developed asystole. CPR was reinitiated and patient received multiple doses of epinephrine.
Past History
Past History
ED Past Medical History: CVA, HTN, Hypercholesterolemia, NIDDM and Other (ptosis)
Social History
Drug: None
Living: with family
Phy Exam
Physical Exam
Physical Exam:
CODE EXAM:
VITAL SIGNS: No palpable blood pressure, no pulses, no respiration.
GENERAL EXAM: Mottled
EYES: Pupils fixed
ENT: Patient intubated
NECK: No venous distention
RESPIRATORY: Equal breath sounds
CARDIAC: Absent heart sounds
VASCULAR: weak pulses
ABDOMEN: Soft no masses
GUAIAC: Not done
MUSCULOSKELETAL: Unable to evaluate strength
EXTREMITIES: No edema or contractures
SKIN: No rash
PSYCH: Mood, affect unable to evaluate
Course
Orders/Labs/Results
Orders:
Orders
04/18/25 19:57
EPINEPHrine [Adrenalin 1 mg/10 ml] 5 mg .ROUTE .STK-MED ONE
Sodium Bicarbonate 50 meq .ROUTE .STK-MED ONE
04/18/25 20:16
Electrocardiogram (*1) Urgent
Reason for Study: Other
Other Reason for Exam: code
EKG- Treatment ONCE
04/18/25 20:17
Cardiac Monitoring- Treatment ONCE
IV Insert/Care/Rem.- Treatment PRN
O2 Therapy [RESP] Urgent
Titrate/Wean O2 to maintain O2 sat greater than (%): 93
Special Instructions: TO MAINTAIN CONTINUOUS O2 SATS >/= 93%
Pulse Ox/cont/shift [RESP] Urgent
Quantity: 1
Special Instructions: continuous pulse ox
04/18/25 20:25
Complete Blood Count/With Diff Urgent
Comprehensive Metabolic Panel Urgent
Lactic Acid Urgent
NT-proBNP Urgent
Troponin I Urgent
04/18/25 20:28
Morphine Sulfate 4 mg .ROUTE .STK-MED ONE
04/18/25 20:29
Morphine Sulfate 4 mg IV NOW STA
Abnormal Lab Results
04/18/25
20:25
WBC 14.5 H 10^3/uL
(4.8-10.8)
RBC 3.86 L 10^6/uL
(4.20-5.40)
Hgb 11.2 L g/dL
(12.0-16.0)
Hct 35.2 L %
(37.0-47.0)
MCHC 31.8 L g/dL
(33.0-37.0)
MPV 11.9 H fL
(7.4-10.4)
Abs Immat Gran (auto) 0.7 H 10^3/uL
(0-0.05)
Absolute Neuts (auto) 8.0 H 10^3/uL
(1.4-6.5)
Absolute Lymphs (auto) 5.0 H 10^3/uL
(1.2-3.4)
Immature Gran % 5.0 H %
(0-0.5)
Sodium 131 L mmol/L
(135-145)
Carbon Dioxide 20 L mmol/L
(22-30)
BUN 43 H mg/dl
(7-17)
Creatinine 1.5 H mg/dL
(0.6-1.0)
Glucose 314 H mg/dl
(70-99)
Lactic Acid 7.5 H* mmol/L
(0.7-2.0)
Calcium 8.3 L mg/dl
(8.4-10.2)
AST 625 H* U/L
(14-36)
ALT 541 H* U/L
(0-35)
Troponin I 0.175 H* ng/ml
Total Protein 6.2 L g/dl
(6.3-8.2)
04/18/25 20:25
04/18/25 20:25
Vital Signs
Initial and Last Documented VS:
Initial Vital Signs
Resp
20
04/18/25 19:59
Last Documented Vital Signs
Pulse Resp BP Pulse Ox
30 12 125/41 56
04/18/25 20:15 04/18/25 20:15 04/18/25 20:14 04/18/25 20:43
*Pulse Oximetry
SaO2: 56
Oxygen Mode of Delivery: Ventilator
Patient hypoxic: yes
*Critical Care Note
Total Time (30-74mins, 75-104mins- exclusive of procedures): 42
Update Note
Update Note:
Patient presents to the Emergency Department with _cardiac arrest
Number and Complexity of Problems Addressed at the Encounter
� Chronic conditions affecting care:
� Acute Exacerbation and/or Progression of Chronic Illness:
� Differential Diagnosis includes: But not limited to RI, PE, respiratory arrest, heart failure, etc. etc. etc.
Amount and/or Complexity of Data to be Reviewed and Analyzed
� I performed an independent evaluation of and my interpretation is:
EKG:
CT:
Xrays:
Laboratory Studies:
Other:
� Review of other/old records reveals: Discharge summary from March 2025 reviewed, at that time, patient had multiple medical problems and a prolonged hospitalization, there was consideration of palliative care and she was
discharged in stable condition to her family.
� Clinical information was obtained by an independent historian: Sons x 2 and sister who describe events leading up to the cardiac arrest.
� Prescriptions/Medications Considered but not given:
� Further testing considered but not performed:
Risk of Complications and/or Morbidity or Mortality of Patient Management
� Social determinants of health affecting care:
� Discussion with other providers (PCP, Hospitalists, Consultants, etc):
� Escalation of care including admission/observation vs risk of discharge considered: Once patient again went into cardiac arrest I spoke to 2 sons and sister describing that she had been without adequate perfusion of her vital
organs for approximately 25 minutes before obtaining a pulse. Her outcome of neurological and meaningful recovery is very very unlikely. At that time, they recommended that we cease efforts. Upon returning to the room, patient was noted to have a
weak pulse, but gradually developed asystole. Time of called 9:38 PM
Case discussed with medical observer 9:08 PM patient is 'released'.
ED Attending Note
-
Portions of this chart may have been created with voice recognition software.� Occasional wrong word or��sound alike� substitutions may have occurred due to the inherent limitations of voice recognition software.
Discharge Plan
Departure
Patient Disposition:
Date of Disposition: 04/18/25
Time of Disposition: 20:38
Condition: Good
Discharge Problem:
Cardiac arrest
Prescriptions:
No Action
aspirin 81 mg Tablet,Chewable
81 mg PO DAILY Qty: 0 0RF
rosuvastatin 20 mg tablet
20 mg PO DAILY
cephalexin 250 mg Capsule
250 mg PO BID 2 Days Qty: 4 0RF
carvedilol 3.125 mg Tablet
3.125 mg PO BID 30 Days Qty: 60 0RF
Eliquis 2.5 mg Tablet
2.5 mg PO BID 30 Days Qty: 60 0RF
amiodarone [Pacerone] 200 mg Tablet
200 mg PO BID 14 Days Qty: 28 0RF
insulin aspart U-100 100 unit/mL (3 mL) Insulin Pen
10 unit SC AC Qty: 15 0RF
insulin glargine [Lantus Solostar U-100 Insulin] 100 unit/mL (3 mL) insulin pen
25 unit SC DAILY Qty: 15 0RF
amiodarone 200 mg tablet
200 mg PO DAILY 30 Days Qty: 30 0RF
Rx Instructions:
Start 200 mg once a day on 04/28/2025 after finishing the twice a day dosing.
Referrals:
UNKNOWN - PT NOT,INTERVIEWE [Family Provider]
Interventions
Interventions:
*General Assessment Last Done: 04/18/25 20:04
*Neglect/Abuse Screening Last Done: 04/18/25 23:44
*ED COVID-19 Vaccine History Last Done: 04/18/25 23:44
*ED Influenza Vaccine History Last Done: 04/18/25 20:04
[facility] Risk Assessment Tool Last Done: 04/18/25 20:20
*Risk Screen - Suicide (C-SSRS) Last Done: 04/18/25 20:04
*Nursing Disposition Last Done: 04/18/25 23:44
ED- Cardiac Assessment Last Done: 04/18/25 21:12
ED- Pulmonary Assessment Last Done: 04/18/25 21:12
Discharge Date and Time
Discharge Date/Time: 04/18/25 23:45
Print Language: AUSTR[place]
[2025-04-18 21:01] LABS: ALT (SGPT) 541 U/L (0-35); AST (SGOT) 625 U/L (14-36); Albumin 3.5 g/dl (3.5-5.0); Alkaline Phosphatase 80 U/L (38-126); Blood Urea Nitrogen 43 mg/dl (7-17); Calcium 8.3 mg/dl (8.4-10.2); Carbon Dioxide 20 mmol/L (22-30); Chloride 98 mmol/L (98-107); Glucose 314 mg/dl (70-99); Potassium 4.2 mmol/L (3.5-5.1); Sodium 131 mmol/L (135-145); Total Protein 6.2 g/dl (6.3-8.2); Troponin I 0.175 ng/ml; eGFR 34.58
== END 2025-04-18 23:45 | disposition expired ==
LOC: EMR 19:56
PROVIDERS: EMERGENCY PHYSICIAN Emergency Medicine
DX: I46.9 Cardiac arrest, cause unspecified (principal); E11.9 Type 2 diabetes mellitus without complications; E78.00 Pure hypercholesterolemia, unspecified; I11.0 Hypertensive heart disease with heart failure; I50.9 Heart failure, unspecified; Z86.73 Personal history of transient ischemic attack (TIA), and cerebral infarction without residual deficits
CPT/HCPCS: 99291; 96374; 92950; 80053; 83605; 83880; 84484; 85025; 93005